=== PATIENT | female | born 1980 | race African-American/Black ===

== ENCOUNTER 2016-12-07 09:28 | Emergency (ER) | payer SELFPAY ==
[2016-12-07] MEDS ORDERED: Acetaminophen 500 MG TAB ONE (09:51)
[2016-12-07] MEDS ORDERED: Amlodipine Besylate/Benazepril 5/10 Capsule PO SCH (10:00)
[2016-12-07 10:10] LABS: #Basophils 0.1 thou/uL (0.0-0.2); #Eosinphils 0.1 thou/uL (0.0-0.7); #Monocytes 0.4 thou/uL (0.11-0.59); #Neutrophils 4.8 thou/uL (1.40-6.50); %Basophils 1.7 % (0.0-1.0); %Eosinophils 1.2 % (0.0-10.0); %Lymphocytes 16.2 % (21.0-51.0); %Monocytes 5.9 % (0.0-10.0); Hematocrit 41.9 % (36.0-47.0); Mean Platelet Volume 7.3 fL (7.4-10.4); Red Blood Cell (RBC) Count 4.79 mill/uL (4.20-5.40); White Blood Cell (WBC) Count 6.4 thou/uL (4.8-10.8)
[2016-12-07 10:32] LABS: ALT (SGPT) 16 U/L (8-55); AST (SGOT) 20 U/L (5-34); Alkaline Phosphatase 66 U/L (40-150); Anion Gap 13 mmol/L (10-20); BUN (Urea Nitrogen) 14 mg/dL (7.0-18.7); Bilirubin, Total 0.8 mg/dL (0.2-1.2); Calc. Creatinine Clearance 0 mL/min (70-130); Calcium 9.9 mg/dL (7.8-10.44); Carbon Dioxide 24 mmol/L (22-29); Chloride 101 mmol/L (98-107); Estimated GFR-MDRD Greater than 90; Globulin 3.4 g/dL (2.4-3.5); Protein, Total 7.5 g/dL (6.0-8.3)
--- NOTE | 2016-12-07 10:57 | CT ---
CT HEAD NONCONTRAST: HISTORY: Headache. COMPARISON: 06/28/13. FINDINGS: There is no evidence of acute intracranial hemorrhage or infarct. The ventricles appear normal in s ize, shape, and position. There is no mass effect or shift of midline structures. Visualized paran martin sinuses remain well aerated. IMPRESSION: No acute intracranial abnormalities are demonstrated on noncontrast CT head. POS: [facility]
[2016-12-07 11:58] LABS: Bilirubin Negative (Negative); Blood, Urine Negative (Negative); Glucose, Urine (Dipstick) Negative (Negative); Ketone, Urine Negative (Negative); Nitrite Negative (Negative); Protein, Urine (Dipstick) Negative (Neg-Trace); Urobilinogen 0.2 mg/dL (0.2-1.0)
[2016-12-07 12:00] LABS: Bacteria/HPF 1+ HPF (None Seen); Hyaline Casts/LPF 0-3 HYALINE CAST LPF (0-3 Hyaline)
== END 2016-12-07 11:20 | disposition home or self-care (01) ==
LOC: ERS 09:28
DX: I10 Essential (primary) hypertension (principal); J11.1 Influenza due to unidentified influenza virus with other respiratory manifestations; Z85.3 Personal history of malignant neoplasm of breast; Z92.21 Personal history of antineoplastic chemotherapy
CPT/HCPCS: 36415; 70450; 80053; 81003; 81015; 85025

== ENCOUNTER 2016-12-13 12:54 | Emergency (ER) | payer SELFPAY ==
[2016-12-13 14:02] LABS: #Eosinphils 0.2 thou/uL (0.0-0.7); #Lymphocytes 1.5 thou/uL (1.20-3.40); #Monocytes 0.3 thou/uL (0.11-0.59); #Neutrophils 2.4 thou/uL (1.40-6.50); %Eosinophils 3.8 % (0.0-10.0); %Lymphocytes 33.3 % (21.0-51.0); %Monocytes 6.3 % (0.0-10.0); Hematocrit 43.3 % (36.0-47.0); Mean Platelet Volume 7.7 fL (7.4-10.4); Red Blood Cell (RBC) Count 4.89 mill/uL (4.20-5.40); White Blood Cell (WBC) Count 4.4 thou/uL (4.8-10.8)
[2016-12-13 14:22] LABS: ALT (SGPT) 13 U/L (8-55); AST (SGOT) 21 U/L (5-34); Alkaline Phosphatase 69 U/L (40-150); Anion Gap 12 mmol/L (10-20); BUN (Urea Nitrogen) 13 mg/dL (7.0-18.7); Bilirubin, Total 0.6 mg/dL (0.2-1.2); Calc. Creatinine Clearance 0 mL/min (70-130); Calcium 10.2 mg/dL (7.8-10.44); Carbon Dioxide 28 mmol/L (22-29); Chloride 103 mmol/L (98-107); Estimated GFR-MDRD 87; Globulin 3.6 g/dL (2.4-3.5); Protein, Total 7.7 g/dL (6.0-8.3)
== END 2016-12-13 15:54 | disposition home or self-care (01) ==
LOC: ERS 12:54
DX: R51 Headache (principal)
CPT/HCPCS: 36415; 80053; 85025; 99284

== ENCOUNTER 2016-12-23 01:09 | Inpatient (IN) | payer OTHER, SELFPAY ==
[2016-12-23] MEDS ORDERED: diphenhydrAMINE 50 MG/ML VIAL ONE (02:05)
[2016-12-23] MEDS ORDERED: Metoclopramide HCl 10 MG/2 ML VIAL ONE (02:05)
[2016-12-23 02:19] LABS: #Basophils 0.1 thou/uL (0.0-0.2); #Eosinphils 0.1 thou/uL (0.0-0.7); #Lymphocytes 1.4 thou/uL (1.20-3.40); #Monocytes 0.4 thou/uL (0.11-0.59); #Neutrophils 1.9 thou/uL (1.40-6.50); %Basophils 2.5 % (0.0-1.0); %Eosinophils 2.5 % (0.0-10.0); %Lymphocytes 36.8 % (21.0-51.0); %Monocytes 9.2 % (0.0-10.0); Hematocrit 41.4 % (36.0-47.0); Mean Platelet Volume 8.2 fL (7.4-10.4); Red Blood Cell (RBC) Count 4.73 mill/uL (4.20-5.40); White Blood Cell (WBC) Count 3.8 thou/uL (4.8-10.8)
[2016-12-23 03:03] LABS: Anion Gap 10 mmol/L (10-20); BUN (Urea Nitrogen) 11 mg/dL (7.0-18.7); Calc. Creatinine Clearance 0 mL/min (70-130); Carbon Dioxide 29 mmol/L (22-29); Chloride 101 mmol/L (98-107); Estimated GFR-MDRD 89
[2016-12-23] MEDS ORDERED: methylPREDNISolone Sod Succ/PF 125 MG/2 ML VIAL ONE (03:59)
[2016-12-23] MEDS ORDERED: Water For Inject, Bacteriostat 30 ML ONE (03:59)
[2016-12-23] MEDS ORDERED: Ketorolac Tromethamine 30 MG/ML VIAL ONE (03:59)
[2016-12-23] MEDS ORDERED: Magnesium 2 GM/NS 0.9% 50 ML 2 GM in Premix Bag 1 BAG IVPB SCH (04:15)
[2016-12-23] MEDS ORDERED: Potassium Chloride 20 MEQ TAB ONE (04:45)
[2016-12-23] MEDS ORDERED: SODIUM CHLORIDE 0.9% IVPB SCH (05:15)
[2016-12-23] MEDS ORDERED: METHOCARBAMOL IVPB SCH (05:15)
[2016-12-23] MEDS ORDERED: Valproate Sodium 1,000 MG in Sodium Chloride 0.9% 100 ML IVPB SCH (05:30)
[2016-12-23] MEDS ORDERED: cefTRIAXone\\ROCEPHIN 2 GM VIAL ONE (06:58)
[2016-12-23] MEDS ORDERED: Sodium Chloride 0.9% 100 ML ONE (06:58)
[2016-12-23 07:11] LABS: CSF, Glucose 25 mg/dl (40-70)
--- NOTE | 2016-12-23 07:49 | CT ---
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 Pt also reports weakness as well as n/v a nd states she has not been able to keep anything down. Pt states she was recently prescribed medications for high BP and reports she has been getting headaches since starting on these. Not on b lood thinners. No recent head trauma, no falls. Denies fever, denies dental pain, denies jaw pain. P t states she has had recent CT scan of head for same headache which was negative. Pt reports h/o breast cancer and surgery for this, states she is about to start radiation. TECHNIQUE: Axial computed tomography images of the head/brain without intravenous contrast. All CT scans at [facility] facility use one or more dose reduction techniques, viz.: automated exposure control; ma/kV adjust ment per patient size (including targeted exams where dose is matched to indication; i.e. head); or iterative reconstruction technique. COMPARISON: No relevant prior studies available. FINDINGS: Brain: Normal. No hemorrhage. No significant white matter disease. No edema. Ventricles: Normal. No ventriculomegaly. Bones/joints: Normal. No acute fracture. Soft tissues: Normal. Sinuses: Unremarkable as visualized. No acute sinusitis. Mastoid air cells: Unremarkable as visualized. No mastoid effusion. IMPRESSION: No acute intracranial hemorrhage. Thank you for allowing us to participate in the care of your patient. Dictated and Authenticated by: Naga Carl MD 12/23/2016 6:48 AM Central Time ([place] \T\ [place]) FINAL REPORT HEAD CT WITHOUT CONTRAST: 12/23/2016 COMPARISON: 12/07/2016 HISTORY: Headache and weakness. FINDINGS: I agree with the preliminary [facility] report. The imaged paranasal sinuses/mastoid air cells are well-a erated. There is no displaced calvarial fracture, intracranial hemorrhage, midline shift, or mass e ffect. IMPRESSION: No intracranial hemorrhage. POS: [facility]
[2016-12-23] MEDS ORDERED: Acyclovir Sodium 700 MG, Admixture Fee 1 EACH in Sodium Chloride 0.9% 100 ML IVPB SCH (08:15)
[2016-12-23] MEDS ORDERED: ADMIXTURE FEE IVPB SCH ×7 (08:30→17:00)
[2016-12-23] MEDS ORDERED: SODIUM CHLORIDE IVPB SCH ×7 (08:30→17:00)
[2016-12-23] MEDS ORDERED: ACYCLOVIR SODIUM IVPB SCH ×7 (08:30→17:00)
[2016-12-23 08:39] LABS: Number Cells Counted-Fluids 100
[2016-12-23 08:51] LABS: Number Cells Counted-Fluids 100
[2016-12-23] MEDS ORDERED: Acetaminophen 325 MG TAB PO PRN (11:28)
[2016-12-23] MEDS ORDERED: Ondansetron HCl/PF 4 MG/2 ML Vial IVP PRN (11:28)
[2016-12-23] MEDS ORDERED: Ibuprofen 200 MG TAB PO PRN (11:28)
--- NOTE | 2016-12-23 12:41 | HP ---
REASON FOR ADMISSION: Possible viral meningitis. HISTORY OF PRESENTING ILLNESS: The patient gives history of having frontal headache for nearly 3-4 days now. This has been progressively getting worse. She in fact came to the ER 3 times. Initially, she had high blood pressure while on one visit and she was given prescriptions for metoprolol and clonidine. The headache persisted; she came for the second time and had a CT brain done which did not reveal any acute abnormalities. From last night, she has been vomiting and has done so nearly 9 times. The last few were bilious. No blood in it. The headache is behind her eyes. Has some nuchal pain, but no neck stiffness as such. She is moving all extremities. No sick contacts. Has no pets in the house. Has not been in the [place] or trekking recently. No rash anywhere on her body. PAST MEDICAL AND SURGICAL HISTORY: History of breast cancer diagnosed last year and has had lumpectomy done in 08/2016, it is on the left side. Her plastic surgeon has plans for reconstructing her left breast in the near future. No other surgeries, recent diagnosis of hypertension in the last week. CURRENT MEDICATIONS: Metoprolol 50 mg twice daily and clonidine 0.1 mg at bedtime. ALLERGIES: No known drug allergies. PERSONAL HISTORY: Does not abuse alcohol or drugs. No history of smoking. FAMILY HISTORY: Both parents are alive and as far as she knows no cancer or heart disease. Power of deputy prosecuting attorney is her aunt, Ms. Kent. Code STATUS: FULL. REVIEW OF SYSTEMS: The following complete review of systems was negative, unless otherwise mentioned in the HPI or below: Constitutional: Weight loss or gain, ability to conduct usual activities. Skin: Rash, itching. Eyes: Double vision, pain. ENT/Mouth: Nose bleeding, neck stiffness, pain, tenderness. Cardiovascular: Palpitations, dyspnea on exertion, orthopnea. Respiratory: Shortness of breath, wheezing, cough, hemoptysis, fever or night sweats. Gastrointestinal: Poor appetite, abdominal pain, heartburn, nausea, vomiting, constipation, or diarrhea. Genitourinary: Urgency, frequency, dysuria, nocturia. Musculoskeletal: Pain, swelling. Neurologic/Psychiatric: Anxiety, depression. Allergy/Immunologic: Skin rash, bleeding tendency. PHYSICAL EXAMINATION: GENERAL: The patient is a 36-year-old female who is currently not in any acute distress. VITAL SIGNS: Blood pressure on arrival was 171/136, repeat pressure was 146/84 , pulse 70 per minute, respiratory rate 18 per minute, temperature 98.1 degrees Fahrenheit, and saturating 100% on room air. NECK: Supple, no elevated JVD. EYES: Extraocular muscles intact. Pupils reacting to light. ORAL CAVITY: Mucous membranes are moist. No exudates or congestion. There are no signs of meningeal irritation, including Kernig's is negative and Brudzinski's is negative. CARDIOVASCULAR SYSTEM: S1, S2 heard. Regular rhythm. RESPIRATORY SYSTEM: Air entry 1+ bilaterally. No rales or rhonchi. ABDOMEN: Soft and bowel sounds heard. No tenderness, rigidity or guarding. EXTREMITIES: No peripheral edema or calf tenderness. VASCULAR SYSTEM: Peripheral pulses 1+ bilateral. No ischemic ulcerations or gangrene. CENTRAL NERVOUS SYSTEM: No gross focal deficits seen. Patient is alert, awake , and oriented x3. PSYCHIATRIC SYSTEM: The patient's mood is euthymic. No hallucinations or delusions. IMAGING AND LABORATORY DATA: Patient has had lumbar puncture done which shows tube 1 is colorless and clear, has WBC of 50, RBC of 1, 90% lymphocytes, 25 mg per deciliter of glucose, 49 mg per deciliter of proteins. HIV 1 and 2 is nonreactive. CSF gram stain shows no organisms. There is WBCs seen. CT brain shows no acute intracranial hemorrhage, potassium is 3.3, BUN 11, creatinine 0.8. Serum test is negative. White count of 3.8, hemoglobin and hematocrit 14 and 41, platelet count is 178. MCV is 87 with 49% lymphocytes. CLINICAL IMPRESSION AND PLAN: The patient will be admitted to medical floor for suspected viral meningitis with intractable headache, nausea, and vomiting. She was given a dose of vancomycin, ceftriaxone, and acyclovir in the ER, we will continue the same. We will obtain consultation with Dr. Conley for Infectious Disease. Her CSF is sent for West Nile HSV 1 and 2 PCRs. Currently , her headache is better. CSF fluid will be sent for cytology as well in view of her recent history of left breast cancer as well. CT brain is negative for any acute infarct or bleed. She will be on Pepcid 20 mg b.i.d. and Motrin p.r.n. for pain. We will continue to closely monitor her for any hemodynamic compromise. MTDD
[2016-12-23] MEDS: Sodium Chloride 0.9% 1,000 ML IV SCH (12:49)
[2016-12-23 14:16] VITALS: BMI 26.4
--- NOTE | 2016-12-23 15:10 | PDOC.EVN ---
Event Note - Event Note Event Note: Was told by RN taking care of patient that pts cytology from [facility] showed malignant cells, ?breast D/w Ms.Julie Cisneros, will see patient and confirm above finding with pathologist.
[2016-12-23] MEDS ORDERED: Vancomycin HCl 1 GM in Premix Bag 1 BAG IVPB SCH (16:00)
[2016-12-23] MEDS ORDERED: HYDROcodone/Acetaminophen 5/325 mg Tablet PO PRN ×2 (16:37)
[2016-12-23] MEDS: Dexamethasone 4 mg/ml Vial SLOW IVP SCH ×2 (17:09→23:05)
[2016-12-23] MEDS: Docusate 100 MG CAP PO SCH (21:01)
[2016-12-23] MEDS: Famotidine 20 MG TAB PO SCH (21:01)
--- NOTE | 2016-12-23 21:31 | CON ---
DATE OF CONSULTATION: 12/23/2016 REASON FOR CONSULTATION: Metastatic breast cancer. HISTORY OF PRESENT ILLNESS: Ms. Gagnon is a pleasant 36-year-old female who found a lump on her le ft breast in 05/2015. She had a breast biopsy done which showed moderately differentiated invasive ductal carcinoma. Hormone receptor positive, HER-2 positive cancer at that time, the breast mass me asured 4.5 cm. The patient was lost a followup until 11/2015 when she was seen by Dr. Wilkinson again with a 9 cm mass in the left breast. She had positive left axilla lymph nodes. She had lost 10 po unds of weight. Her CT scan showed no metastasis. She started chemotherapy with Adriamycin and Cyt oxan followed by Taxol. After chemotherapy, she was to have surgery; however, she wanted breast rec onstructive surgery and went to [place] for to find a surgeon secondary to her insurance. She had a left mastectomy approximately 11 weeks ago. She has a left breast tissue demurrage clerk in place. Over the last week and a half, she has been complaining of headache, dizziness with nausea and vomiting. She has been to the emergency room 3 times. She has had 2 negative brain CTs, she was diagnosed wi th hypertension and started on blood pressure medication. She had no relief in her headaches so pre sented to the emergency room yesterday for further evaluation. 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 PAST MEDICAL HISTORY: 1. Stage IIIB ER/[place], HER-2 positive breast cancer. 2. Hypertension. PAST SURGICAL HISTORY: Left mastectomy. ALLERGIES: No known drug allergies. HOME MEDICATIONS: [place] 10/325 p.r.n. pain. FAMILY HISTORY: No known history of breast cancer. SOCIAL HISTORY: Single, has 3 children, lives alone. Social drinker, occasional marijuana and no t obacco use. REVIEW OF SYSTEMS: CONSTITUTIONAL: No fever, chills, night sweats. EYES: No blurred or double vision. ENT: No pain, hoarseness, sore throat, or dysphagia. CARDIOVASCULAR: No chest pain, palpitations or syncope. RESPIRATORY: No shortness breath, dyspnea on exertion or orthopnea. GASTROINTESTINAL: Positive for nausea and vomiting. No abdominal pain. GENITOURINARY: No dysuria or hematuria. MUSCULOSKELETAL: Positive for low back pain. SKIN: No rash or pruritus. HEMATOLOGIC: Denies bleeding, bruising or clotting. NEUROLOGIC: Positive for weakness, headache, dizziness, no seizure activity. PSYCHIATRIC: No anxiety or depression. PHYSICAL EXAMINATION: VITAL SIGNS: Temperature is 98.5, pulse is 72, respiratory rate 14, BP is 130/75. She is 100% on r oom air. GENERAL: Well-developed and well-nourished female in no acute distress. HEENT: Normocephalic and atraumatic. Pupils are equal and reactive to light. NECK: Supple without JVD. CARDIOVASCULAR: Regular rate and rhythm. LUNGS: Clear. ABDOMEN: Soft, nontender, bowel sounds are positive. EXTREMITIES: No clubbing, cyanosis or edema. SKIN: No rash. She has a left breast tissue demurrage clerk in place. NEUROLOGICAL: Nonfocal. PSYCHIATRIC: The patient is alert and oriented and appropriate. PERTINENT LABORATORY AND X-RAYS: Current WBCs are 3.8, hemoglobin 14.1, hematocrit 41.4, platelet c ount 178,000, 49% neutrophils, 37% lymphocytes. Sodium 137, potassium 3.3, chloride 101, CO2 is 29, BUN is 11, creatinine 0.88, calcium is 10. test is negative. CSF showed a protein of 49 , glucose of 25. HIV is negative. IMPRESSION: 1. History of ER/[place], HER-2 positive breast cancer, status post chemotherapy and left mastectomy. 2. New onset headaches. 3. 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 DISCUSSION: The case was discussed with Dr. Perez and Dr. Shields. We will perform an MRI of her brain and spine. Consult Neurosurgery for Ommaya reservoir placement and spoke with Mr. Rollins with Dr. Thurston's office. The patient will need methotrexate once the Ommaya is placed. This was discus sed with the patient and she wishes to proceed. Thank you for the consult.
--- NOTE | 2016-12-23 21:34 | CON ---
DATE OF CONSULTATION: 12/23/2016 REASON FOR CONSULTATION: Abnormal CSF, headaches. HISTORY OF PRESENT ILLNESS: This is a 36-year-old, who has a history of lumpectomy and chemotherapy for management of breast cancer, left-sided. The pathology revealed intraductal cancer with equivocal findings, the estrogen receptor was positive, progesterone receptor positive, the Ki index was high, but the receptor was equivocal even by FISH. The patient had chest, abdomen, and pelvis CT in October, which showed a left breast mass and mildly prominent left axillary lymph nodes concerning for involvement. The patient was in her usual state until 2 weeks before she developed dizziness and then now this persistent headache, and headache got better after admission. Spinal fluid was abnormal with mild neutrophilic pleocytosis, but quite severe hypoglycorrhachia. The patient currently has no headaches, no vomiting, no chest pain, no dyspnea, no abdominal pain, no joint symptoms. PAST MEDICAL HISTORY: As above, includes breast cancer with treatments. ALLERGIES: None. MEDICATIONS: Metoprolol, clonidine. SOCIAL HISTORY: Never a smoker. FAMILY HISTORY: Noncontributory. PHYSICAL EXAMINATION: VITAL SIGNS: Normal. HEENT: Ocular movements are conjugate. Fundi with sharp disks. No abnormalities in retinal nathan. NECK: Supple, no jugular venous distention. LUNGS: Clear. ABDOMEN: Soft. HEART: Normal. EXTREMITIES: Joint examination normal. NEUROLOGIC: She is awake, alert, oriented. LABORATORY DATA: WBC count 3.8, platelet count 178,000, normal differential, and potassium 3.3. test negative. Now we have the results of the pathology, and the CSF fluid was positive for malignant cells consistent with metastatic carcinoma. ASSESSMENT: 1. Breast cancer with lumpectomy and chemo. 2. Headaches with carcinomatous meningitis. Hypoglycorrhachia is very typical of carcinomatous meningitis and now there is a positive cytology and the patient will need intrathecal chemotherapy, may need radiation therapy as well. MTDD
[2016-12-24] MEDS: Dexamethasone 4 mg/ml Vial SLOW IVP SCH ×3 (05:29→16:13)
[2016-12-24] MEDS: Sodium Chloride 0.9% 1,000 ML IV SCH (05:29)
[2016-12-24] MEDS ORDERED: cefTRIAXone\\ROCEPHIN 2 GM, Admixture Fee 1 EACH in Sodium Chloride 0.9% 100 ML IVPB SCH (06:00)
[2016-12-24 06:47] LABS: #Lymphocytes 1.1 thou/uL (1.20-3.40); #Monocytes 0.2 thou/uL (0.11-0.59); #Neutrophils 5.5 thou/uL (1.40-6.50); %Basophils 0.1 % (0.0-1.0); %Eosinophils 0.1 % (0.0-10.0); Hematocrit 36.2 % (36.0-47.0); Mean Platelet Volume 9.2 fL (7.4-10.4); Red Blood Cell (RBC) Count 4.05 mill/uL (4.20-5.40); White Blood Cell (WBC) Count 6.8 thou/uL (4.8-10.8)
[2016-12-24 06:55] LABS: Anion Gap 11 mmol/L (10-20); BUN (Urea Nitrogen) 10 mg/dL (7.0-18.7); Calc. Creatinine Clearance 120 mL/min (70-130); Calcium 8.9 mg/dL (7.8-10.44); Carbon Dioxide 21 mmol/L (22-29); Chloride 109 mmol/L (98-107); Estimated GFR-MDRD Greater than 90
[2016-12-24] MEDS: Famotidine 20 MG TAB PO SCH (10:14)
[2016-12-24] MEDS: Docusate 100 MG CAP PO SCH (10:14)
--- NOTE | 2016-12-24 10:25 | PDOC.PN ---
- Subjective Encounter Start Date: 12/24/16 Encounter Start Time: 09:30 - Objective Resuscitation Status: Resuscitation Status FULL:Full Resuscitation MAR Reviewed: Yes Vital Signs & Weight: Vital Signs (12 hours) Temp Pulse Resp BP Pulse Ox 12/24/16 08:14 98.5 F 65 18 162/96 H 97 12/24/16 04:29 97.7 F 58 L 16 132/70 99 12/23/16 23:30 97.8 F 50 L 16 146/71 H 98 Weight Weight 154 lb I&O: 12/23/16 12/24/16 12/25/16 06:59 06:59 06:59 Intake Total 1320 Balance 1320 Result Diagrams: 12/24/16 05:37 12/24/16 05:37 Phys Exam - Physical Examination HEENT: PERRLA, moist MMs Neck: no JVD, supple Respiratory: no wheezing, no rales Cardiovascular: RRR, no significant murmur Gastrointestinal: soft, non-tender, positive bowel sounds Musculoskeletal: no edema, pulses present Neurological: non-focal, moves all 4 limbs Psychiatric: A&O x 3 Dx/Plan (1) Meningeal carcinomatosis Code(s): 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 Review of Systems - Medications/Allergies Allergies/Adverse Reactions: Allergies Allergy/AdvReac Type Severity Reaction Status Date / Time No Known Allergies Allergy Verified 12/23/16 14:30 Medications: Current Medications Acetaminophen (Tylenol) 650 mg PO Q4H PRN PRN Reason: Headache/Fever or Pain Hydrocodone Bitart/Acetaminophen ([place] 5/325) 1 tab PO Q4H PRN PRN Reason: Mild-Moderate Pain (1-5) Hydrocodone Bitart/Acetaminophen ([place] 5/325) 2 tab PO Q4H PRN PRN Reason: Moderate Pain (4-6) Dexamethasone (Decadron) 4 mg SLOW IVP Q6H [facility] Last Admin: 12/24/16 10:16 Dose: 4 mg Docusate Sodium (Colace) 100 mg PO BID [facility] Last Admin: 12/24/16 10:14 Dose: 100 mg Famotidine (Pepcid) 20 mg PO BID [facility] Last Admin: 12/24/16 10:14 Dose: 20 mg Sodium Chloride (Normal Saline 0.9%) 1,000 mls @ 60 mls/hr IV .[id number] [facility] Last Admin: 12/24/16 05:29 Dose: 1,000 mls Ibuprofen (Motrin) 400 mg PO Q6H PRN PRN Reason: Pain Ondansetron HCl (Zofran) 4 mg IVP Q6H PRN PRN Reason: Nausea/Vomiting
--- NOTE | 2016-12-24 11:57 | MRI ---
MRI LUMBAR SPINE WITH AND WITHOUT CONTRAST: Technique: MRI of the lumbar spine obtained. Post contrast images obtained after administering 5 cc of MultiHance IV. History: Weakness. History of breast cancer. FINDINGS: Lumbar vertebrae maintain normal height and alignment. Disc spaces are maintained. Vertebral body si gnal is normal. There is no evidence of infiltrative process or metastases. No abnormal enhancement. No evidence of disc bulge or disc protrusion. There is no central canal or foraminal stenosis. Conu s terminates at L1. IMPRESSION: Unremarkable MRI of the lumbar spine. POS: OFF
--- NOTE | 2016-12-24 12:01 | MRI ---
MRI BRAIN WITH AND WITHOUT CONTRAST: Technique: Multiplanar, multisequential imaging of the brain obtained pre and post contrast. Post co ntrast images obtained after administration of 14 cc MultiHance IV. History: Carcinoma. History of breast cancer. Weakness. FINDINGS: The ventricles have normal size and position. No evidence for restricted effusion. No mass, edema, o r white matter abnormality. No abnormal enhancement. IMPRESSION: Unremarkable MRI of brain. POS: OFF
--- NOTE | 2016-12-24 12:03 | MRI ---
MRI THORACIC SPINE WITH AND WITHOUT CONTRAST: Technique: Multiplanar, multisequence MRI images of the thoracic spine obtained. Post contrast image s were obtained after administration of 14 cc of MultiHance IV. History: Carcinoma, history of breast cancer, weakness. FINDINGS: Thoracic vertebrae maintain normal height and alignment. Thoracic vertebra signal is normal. No evid ence of metastatic disease identified. No disc bulge or protrusion. No central canal stenosis. Thora cic cord signal is normal. IMPRESSION: Unremarkable MRI thoracic spine. POS: OFF
--- NOTE | 2016-12-24 12:58 | MRI ---
MRI CERVICAL SPINE WITH AND WITHOUT CONTRAST: HISTORY: Weakness. History of breast cancer. Positive CSF carcinoma. TECHNIQUE: Multiplanar, multisequential imaging of the cervical spine is obtained. Post contrast images are ob tained after administering 14 mL of MultiHance. FINDINGS: The cervical vertebrae maintain height and alignment. Degenerative changes are noted at C4-C5 and C 5-C6. Anterior osteophytes are present at these levels. Loss of disk space at C5-C6. There is a p osterior disk protrusion centrally at C5-C6, impinging on and mildly flattening the cord. There is disk bulge and spondylosis at C6-C7, slightly more prominent paracentrally and to the left, flatteni ng the anterior thecal sac and abutting the cord. This may impinge on and displace the traversing l eft C7 nerve root. Cord signal is minimal. No abnormal enhancement. No evidence of a metastatic lesion. IMPRESSION: 1. Disk protrusion at C5-C6 , impinging on the cord. 2. Disk bulge and spondylosis at C6-C7, more prominent to the left, as described above. 3. No evidence of a metastatic lesion. POS: OFF
[2016-12-24 13:24] VITALS: TEMP 97
[2016-12-24 16:17] VITALS: BP 143/80
[2016-12-24] MEDS ORDERED: Metoprolol Tartrate 50 MG TAB PO SCH (21:00)
--- NOTE | 2016-12-25 02:29 | DIS ---
DATE OF ADMISSION: 12/23/2016 DATE OF DISCHARGE: 12/24/2016 DISCHARGE DISPOSITION: To home. 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 PROCEDURES DONE DURING HOSPITALIZATION: Thoracic spine MRI done was unremarkable. Lumbar spine MRI was unremarkable. Cervical spine MRI showed disk protrusion at C5-C6, impinging on the cord, there is also disk bulge and spondylosis at C6-C7, no evidence of metastatic lesion. MRI brain was unremarkable. There was no abnormal enhancement seen. CSF fluid cytology showed malignant cells consistent with metastatic carcinoma. The cells seen on the cytology were compatible with metastatic breast cancer. CT brain done on the day of admission showed no acute intracranial hemorrhage. HIV 1 and 2 nonreactive. CSF tube #3 was colorless. CSF glucose was 25. CSF total protein was 49. On tube #4, WBC was 88 and CSF RBC 5 with 88% lymphocytes. Serum test was negative. White count 6.8, H\T\H were 12 and 36, platelet count 166 with 80% neutrophils. DISCHARGE MEDICATIONS: Motrin p.r.n. for pain, Lopressor 50 mg twice daily. ALLERGIES: No known drug allergies. INPATIENT CONSULTS: Dr. Perez/Jacqueline Cisneros APRN for Oncology. Dr. Conley for Infectious Disease. BRIEF COURSE DURING HOSPITALIZATION: The patient initially came to ER with complaints of severe headache, mainly frontal headache. This has been ongoing for the last week or so. She had come to the emergency room nearly 3 times and has had CAT scan for the brain done twice. She also had intractable vomiting in the last 24 hours prior to arrival here. The patient has had lumbar puncture done and her cell cytology from the CSF shows malignant cells compatible with breast cancer metastasis. She has had history of left breast cancer with surgery done this August. She was diagnosed of cancer sometime in the early part of last year. She has had consultations with Dr. Perez for Oncology and Dr. Conley for Infectious Disease. She was initially thought to have had viral meningitis, but her cytology came back positive for malignancy. She was placed on Decadron. She has had complete relief with her nausea, vomiting, and headache. She is wanting to go home today and follow up with [facility]. All her family is in [place] and she would like to go from here and she would not want to continue further procedures including placement of Ommaya reservoir for intrathecal methotrexate. In view of this, she is being discharged home. The patient has been strongly counseled with regards to either following up with Dr. Perez or at [facility]. She is ambulating and eating well prior to discharge. Please see a [id number] documentation for the day of discharge on [facility]. [facility]
[2016-12-26 13:15] LABS: West Nile Virus IgG Ab - CSF Negative (Negative); West Nile Virus IgM Ab - CSF Negative (Negative)
[2016-12-26 22:09] LABS: HSV 1 - DNA Negative (Negative)
== END 2016-12-24 19:08 | disposition home or self-care (01) | DRG 55 ==
LOC: ERS 01:09 → SURG B 07:52 → ONC 12-24 12:39
PROVIDERS: ADMIT Internal Medicine; ATTEND Internal Medicine
PROC: 009U3ZX Drainage of Spinal Canal, Percutaneous Approach, Diagnostic (ICD-10-PCS; principal; 2016-12-23)
DX: C79.49 Secondary malignant neoplasm of other parts of nervous system (principal); C50.912 Malignant neoplasm of unspecified site of left female breast; I10 Essential (primary) hypertension; Z17.0 Estrogen receptor positive status [ER+]; Z90.12 Acquired absence of left breast and nipple
CPT/HCPCS: 36415; 70450; 70553; 72156; 72157; 72158; 80048; 82945; 84157; 84703; 85025; 85060; 86788; 86789; 87070; 87205; 87389; 87529; 88104; 89051; J0133; J0696; J1100; J1200; J1885; J2405; J2765; J2800; J2930; J3475; J7050

== ENCOUNTER 2017-01-01 10:32 | Inpatient (IN) | payer OTHER ==
[2017-01-01] MEDS ORDERED: Artificial Tears 18 DROP/0.9 ML EA EYE PRN (11:11)
[2017-01-01] MEDS ORDERED: Milk Of Magnesia 30 ML UDCUP PO PRN (11:11)
[2017-01-01] MEDS ORDERED: Zolpidem Tartrate 5 MG TAB PO PRN (11:11)
[2017-01-01] MEDS ORDERED: HYDROcodone/Acetaminophen 10/325 mg Tablet PO PRN (11:11)
[2017-01-01] MEDS ORDERED: Mag-Al 1200 mg/1200 mg/30 ML UDCUP PO PRN (11:11)
[2017-01-01] MEDS ORDERED: hydrALAZINE 20 MG/ML VIAL SLOW IVP PRN (11:11)
[2017-01-01] MEDS ORDERED: Ondansetron ODT 4 MG TAB PO PRN (11:11)
[2017-01-01] MEDS ORDERED: Sodium Chloride 0.65% Nasal 44 ML BOT EA NARE PRN (11:11)
[2017-01-01] MEDS ORDERED: Acetaminophen 325 MG TAB PO PRN (11:11)
[2017-01-01] MEDS ORDERED: Loratadine 10 MG TAB PO PRN (11:11)
[2017-01-01] MEDS ORDERED: Loperamide HCl 2 MG CAP PO PRN (11:11)
[2017-01-01] MEDS ORDERED: Diabetic Tussin 200 MG/10 ML UDCUP PO PRN (11:11)
[2017-01-01] MEDS ORDERED: Eucerin (Mineral Oil/Petrolatum,White) 30 gm Jar TOP PRN (11:11)
[2017-01-01] MEDS ORDERED: Senokot 8.6 MG TAB PO PRN (11:11)
[2017-01-01] MEDS ORDERED: Ondansetron HCl/PF 4 MG/2 ML Vial IVP PRN (11:11)
[2017-01-01] MEDS: Sodium Chloride 0.9% 1,000 ML IV SCH (12:20)
[2017-01-01] MEDS: Dexamethasone 4 mg/ml Vial SLOW IVP SCH ×3 (12:20→20:51)
[2017-01-01] MEDS ORDERED: Dexamethasone 4 MG, Admixture Fee 1 EACH in Sodium Chloride 0.9% 50 ML IVPB SCH (13:00)
[2017-01-01 14:16] LABS: PTT 30.7 SEC (22.9-36.1); Prothrombin Time 12.8 SEC (12.0-14.7)
[2017-01-01 14:18] LABS: #Eosinphils 0.1 thou/uL (0.0-0.7); #Lymphocytes 1.3 thou/uL (1.20-3.40); #Monocytes 0.7 thou/uL (0.11-0.59); #Neutrophils 3.4 thou/uL (1.40-6.50); %Basophils 0.4 % (0.0-1.0); %Eosinophils 1.7 % (0.0-10.0); %Lymphocytes 24.2 % (21.0-51.0); %Monocytes 13.1 % (0.0-10.0); Hematocrit 46.4 % (36.0-47.0); Mean Platelet Volume 7.7 fL (7.4-10.4); Red Blood Cell (RBC) Count 5.22 mill/uL (4.20-5.40); White Blood Cell (WBC) Count 5.6 thou/uL (4.8-10.8)
--- NOTE | 2017-01-01 14:22 | HP ---
PRIMARY CARE PHYSICIAN: [facility] call admission. Patient is following [facility]. REASON FOR ADMISSION: Intractable headache. HISTORY OF PRESENT ILLNESS: A 36-year-old -F[place] female who had lump in her left breast w edelh was diagnosed in 05/2015. Subsequently, patient had breast biopsy, which turned out to be mode rately differentiated invasive ductal carcinoma. It was hormone receptor positive and HER-2 positiv e. On diagnosis, breast mass was measured about 4.5 cm. Subsequently, she lost her followup and wh en she saw doctor at that time mass has increased in size to 9 cm with positive left axillary lymph node and she also had weight loss. At that time, patient did not have any metastasis. Patient was started on chemotherapy with Adriamycin and Cytoxan followed by Taxol. After chemotherapy, patient wanted to have breast reconstructive surgery and that is why she went to [place] to find surgeon. 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 She was most recently admitted in our hospital on 12/23/2016. At that time, the patient was having headache. 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 At that time, patient had womack MRI including thoracic, lumbar and cervical spine MRI which were normal and MRI brain was also unremarkable. Patient was discharge d home on oral steroid. The patient was taking Decadron 4 mg p.o. q.8 hourly which was not taking c are of her headache and that is why today patient went to see Oncology and Oncology decided to keep her in hospital for her headache control and eventual plan for intrathecal chemotherapy. The patien t is feeling a little bit unsteady on and off basis. She denies any focal motor or sensory symptoms . She denies any seizures. She denies any fever or chills. She denies any abdominal pain, constip ation, or diarrhea. She denies any chest pain, palpitation or shortness of breath. She denies any urinary tract infection symptoms. PAST MEDICAL HISTORY: Hypertension, diagnosis of left breast cancer stage 3B, ER/NM positive, HER-2 positive, hypertension. PAST SURGICAL HISTORY: Left mastectomy. PAST PSYCHIATRIC HISTORY: Reviewed and negative. ALLERGIES: No known drug allergies. FAMILY HISTORY: No strong family history of breast cancer, coronary artery disease, stroke or cance r. SOCIAL HISTORY: Patient is single. She has 3 children and lives alone. She drinks alcohol sociall y. She smokes more marijuana occasionally. She denies any smoking. REVIEW OF SYSTEMS: The following complete review of systems was negative, unless otherwise mentione d in the HPI or below: Constitutional: Weight loss or gain, ability to conduct usual activities. Skin: Rash, itching. Eyes: Double vision, pain. ENT/Mouth: Nose bleeding, neck stiffness, pain, tenderness. Cardiovascular: Palpitations, dyspnea on exertion, orthopnea. Respiratory: Shortness of breath, wheezing, cough, hemoptysis, fever or night sweats. Gastrointestinal: Poor appetite, abdominal pain, heartburn, nausea, vomiting, constipation, or diar hudson. Genitourinary: Urgency, frequency, dysuria, nocturia. Musculoskeletal: Pain, swelling. Neurologic/Psychiatric: Anxiety, depression. Allergy/Immunologic: Skin rash, bleeding tendency. Please see my HPI for pertinent positive and negative. All other review of systems reviewed and neg ative except as mentioned in the HPI. CURRENT HOME MEDICATIONS: Decadron 4 mg p.o. q.8 hourly, Zofran 8 mg q.8 hourly p.r.n., Protonix 40 mg p.o. daily, prochlorperazine 10 mg p.o. q.6 hourly p.r.n., acetazolamide 250 mg p.o. b.i.d., oxy codone 5 mg p.o. q.6 hourly p.r.n. ALLERGIES: No known drug allergies. PHYSICAL EXAMINATION: VITAL SIGNS: Currently, temperature 98.0, pulse 56, respiratory rate 16, saturation 100%, and blood pressure 111/69. GENERAL: Patient is currently alert, awake, no obvious acute distress. HEAD: Normocephalic, atraumatic. EYES: Pupils round, reactive to light. Extraocular muscles intact. ENT: Oropharynx within normal limits. Moist mucous membranes. No oral lesions. No pharyngeal kassandra thema, no exudate. NECK: Supple. Range of motion is normal. No meningeal signs of irritation. LUNGS: Clear to auscultation without any rhonchi or rales. CARDIAC: S1, S2 regular without any murmur. ABDOMEN: Soft, bowel sounds present, nontender, nondistended. No organomegaly, no mass, no suprapu bic tenderness. BACK: Examination unremarkable, no CVA tenderness. EXTREMITIES: Upper extremity passive movements of all joints are normal. Lower extremities, no nickolas ma. Good peripheral pulsation. SKIN: No skin rash. HEMATOLOGICAL SYSTEM: No lymphadenopathy. PSYCHIATRIC: Normal affect. IMAGING AND SIGNIFICANT LABORATORY DATA: I have ordered CBC, CMP, PT/INR, and urinalysis. Report i s not back yet. We will review later. ASSESSMENT AND PLAN/IMPRESSION: 1. Intractable headache, likely due to meningeal carcinomatosis. 2. 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 3. Moderately differentiated invasive ductal carcinoma with ER/NM positive and HER-2 positive, stat us post mastectomy and chemotherapy. PLAN: 1. Full admission to Oncology floor. We will start Decadron 4 mg IV q.4 hourly. We will consult O ncology while in hospital. We will consult Dr. Larios for placing access for intrathecal chemothera py. Intrathecal chemotherapy will defer to Oncology. Will continue with Pepcid 20 mg IV b.i.d. Sy mptomatic treatment for nausea and vomiting. We will also continue IV fluid at NS 70 mL per hour. We will hold on Lovenox therapy because patient is planned for surgery tomorrow. 2. Code status: The patient is FULL CODE. Patient is able to make her own decisions. Disposition plan based on clinical course. Plan of care discussed with the patient in detail.
[2017-01-01 14:32] LABS: ALT (SGPT) 20 U/L (8-55); AST (SGOT) 13 U/L (5-34); Alkaline Phosphatase 74 U/L (40-150); Anion Gap 9 mmol/L (10-20); BUN (Urea Nitrogen) 14 mg/dL (7.0-18.7); Bilirubin, Total 0.6 mg/dL (0.2-1.2); Calc. Creatinine Clearance 0 mL/min (70-130); Calcium 9.6 mg/dL (7.8-10.44); Carbon Dioxide 22 mmol/L (22-29); Chloride 105 mmol/L (98-107); Estimated GFR-MDRD 85; Globulin 3.3 g/dL (2.4-3.5); Protein, Total 7.4 g/dL (6.0-8.3)
--- NOTE | 2017-01-01 15:01 | CON ---
DATE OF CONSULTATION: 01/01/2017 This is a 52 initial patient consult in which greater than 50% of the exam was spent in counseling a nd coordinating patient's care. Remainder of the exam was spent in review of patient's medical [address] and appropriate imaging studies. CHIEF COMPLAINT: Headache with positive CSF findings consistent with bleeding, malignant cells of m etastatic carcinoma presumed breast cancer. HISTORY OF PRESENT ILLNESS: Ms. Gagnon is a pleasant 36-year-old female who was diagnosed roughly a year ago with of breast cancer. She began to develop headaches over the past few weeks and to do further medical workup CSF fluid was analyzed and found to be positive for malignant carcinoma cells . The patient has been undergoing treatment with Oncology in order to treat the cancer itself. Dirk rosurgery was asked to consult regarding placement of an Ommaya reservoir. The patient currently st ates she has headache behind the bilateral eyes. She is light sensitive, but noise has not seem to increase her headache. She has also complained of some fatigue, but otherwise has no complaints. S he denies falls, weakness in any of the extremities. She has had some nausea and vomiting over the past several weeks to months. She denies dizziness and blurred vision. PHYSICAL EXAMINATION: The patient is awake, alert, and appropriate. She has full strength in the b ilateral upper and bilateral lower extremities. She has no pronator drift. Pupils are equal, round , and reactive bilaterally. Her GCS currently is 15. Gait was not tested. IMPRESSION/DIAGNOSES: 1. History of breast carcinoma with metastatic malignant carcinoma cells found in CSF. 2. Headache. PLAN: I discussed the patient's case with Dr. Larios. He has also discussed the patient with Dr. Gary mccoy. We have decided to proceed with placement of an Ommaya reservoir for treatment of the shazia ent's CSF. I have discussed the risks and benefits and procedure regarding placement of right front al Ommaya reservoir. Patient understands reason for this placement and wishes to proceed. We have scheduled to take her today or tomorrow to place this reservoir. Would like her to be n.p.o. at mid night and we will obtain consent tomorrow. At the time of examination, the patient's questions were answered to her satisfaction. Please comment any changes in the patient's neurologic status. Othe rwise, we will plan for Ommaya reservoir placement tomorrow with Dr. Larios.
[2017-01-01 15:37] VITALS: BMI 25.4
[2017-01-01] MEDS: HYDROcodone/Acetaminophen 5/325 mg Tablet PO PRN ×2 (18:23→20:50)
[2017-01-01] MEDS: Famotidine/PF 20 mg/2ml Vial SLOW IVP SCH (20:52)
[2017-01-01 23:29] LABS: Bilirubin Negative (Negative); Blood, Urine Negative (Negative); Glucose, Urine (Dipstick) Negative (Negative); Ketone, Urine Negative (Negative); Nitrite Negative (Negative); Protein, Urine (Dipstick) Negative (Neg-Trace)
[2017-01-01 23:31] LABS: Bacteria/HPF 1+ HPF (None Seen); Hyaline Casts/LPF 0-3 HYALINE CAST LPF (0-3 Hyaline); RBC/HPF 0-3 HPF (0-3)
[2017-01-02] MEDS: Morphine 10 MG/ML VIAL SLOW IVP PRN ×2 (02:00→05:14)
[2017-01-02] MEDS: Dexamethasone 4 mg/ml Vial SLOW IVP SCH ×6 (02:00→21:04)
[2017-01-02] MEDS: Sodium Chloride 0.9% 1,000 ML IV SCH ×2 (02:04→18:04)
[2017-01-02 04:23] LABS: #Basophils 0.1 thou/uL (0.0-0.2); #Lymphocytes 1.1 thou/uL (1.20-3.40); #Monocytes 0.3 thou/uL (0.11-0.59); #Neutrophils 5.8 thou/uL (1.40-6.50); %Basophils 1.6 % (0.0-1.0); %Eosinophils 0.1 % (0.0-10.0); %Lymphocytes 15.2 % (21.0-51.0); Hematocrit 46.3 % (36.0-47.0); Mean Platelet Volume 7.4 fL (7.4-10.4); Red Blood Cell (RBC) Count 5.24 mill/uL (4.20-5.40); White Blood Cell (WBC) Count 7.3 thou/uL (4.8-10.8)
[2017-01-02 04:51] LABS: ALT (SGPT) 19 U/L (8-55); AST (SGOT) 14 U/L (5-34); Alkaline Phosphatase 69 U/L (40-150); Anion Gap 11 mmol/L (10-20); BUN (Urea Nitrogen) 13 mg/dL (7.0-18.7); Bilirubin, Total 0.5 mg/dL (0.2-1.2); Calc. Creatinine Clearance 111 mL/min (70-130); Calcium 9.6 mg/dL (7.8-10.44); Carbon Dioxide 17 mmol/L (22-29); Chloride 107 mmol/L (98-107); Estimated GFR-MDRD Greater than 90; Globulin 3.4 g/dL (2.4-3.5); Protein, Total 7.3 g/dL (6.0-8.3)
[2017-01-02] MEDS ORDERED: Thrombin 5000 UNITS/5 ML VIAL ONE (06:17)
[2017-01-02] MEDS ORDERED: Sodium Chloride 0.9% 10 ML ONE (06:17)
[2017-01-02] MEDS ORDERED: Bacitracin Zinc Ointment 30 gm TUBE ONE (06:18)
[2017-01-02] MEDS ORDERED: Fentanyl 250 MCG/5 ML VIAL ONE (06:25)
[2017-01-02] MEDS ORDERED: Midazolam HCl 2 mg/2 ml Vial ONE (06:25)
[2017-01-02] MEDS ORDERED: Lidocaine 1% w/Epinephrine 1:200K 30 ML VIAL ONE (06:27)
[2017-01-02] MEDS ORDERED: CEFAZOLIN/Water 2 GM/20 ML SYRINGE ONE (06:47)
[2017-01-02] MEDS ORDERED: Ondansetron HCl/PF 4 MG/2 ML Vial ONE ×2 (06:47→07:10)
[2017-01-02] MEDS ORDERED: Succinylcholine Chloride 20 MG/ML 10 ml SYRINGE FS ONE (07:10)
[2017-01-02] MEDS ORDERED: Propofol 200 MG/20 ML VIAL ONE (07:10)
[2017-01-02] MEDS ORDERED: Lidocaine 1% PF 5 ML VIAL ONE (07:10)
[2017-01-02] MEDS ORDERED: Dexamethasone 20 MG/5 ML VIAL ONE (07:10)
[2017-01-02] MEDS ORDERED: ePHEDrine/0.9% NaCl/PF SYRINGE 50 mg/10 ml ONE (07:10)
[2017-01-02] MEDS ORDERED: PHENYLEPHRINE-NS 100 MCG/ML 10 ML SYRINGE ONE (07:10)
[2017-01-02 07:25] LABS: Phosphorus 3.4 mg/dL (2.3-4.7)
[2017-01-02] MEDS ORDERED: Ondansetron HCl/PF 4 MG/2 ML Vial IVP PRN (07:56)
[2017-01-02] MEDS ORDERED: Promethazine HCl 25 MG/ML VIAL IM PRN (07:56)
[2017-01-02] MEDS ORDERED: Promethazine HCl 25 MG/ML VIAL SLOW IVP PRN (07:56)
[2017-01-02] MEDS ORDERED: Fentanyl 100 MCG/2 ML VIAL ONE ×2 (08:51→09:18)
--- NOTE | 2017-01-02 10:25 | PRG ---
DATE OF SERVICE: 01/02/2017 This is an initial hospital visit note. CHIEF COMPLAINT: Leptomeningeal carcinomatosis with breast primary. HISTORY OF PRESENT ILLNESS: I reviewed the notes of my colleague, Arnoldo Ferrer PA-C, and agree w ith its content. Ms. Gagnon is a 36-year-old woman who was evaluated last week and found to have p ositive cytology in her CSF for malignant breast adenocarcinoma. She has had headache, nausea, and vomiting. She was also seen at [facility] and was discharged and she sought further evaluation her e. She is admitted for the aforementioned symptoms. It was requested that we place Ommaya reservoi r for chemotherapy, intrathecal chemotherapy administration. This morning she complains of headache , nausea, and vomiting. Our team has had seen Mr. Gagnon. I have discussed with Ms. Gagnon the request by oncologist for placement of an Ommaya reservoir. She requests that we pursue this. I have also discussed the risk s, benefits, alternatives, complications of placement of a reservoir and she would like to proceed. Following the placement I would be fine with access of the reservoir given the acuity of the patien t's condition starting tomorrow. DIAGNOSIS: Leptomeningeal carcinomatosis.
--- NOTE | 2017-01-02 10:50 | OP ---
OR: 12 WOUND TYPE: Type 1 wound. SURGEON: Justice Larios M.D. SWEAT BAND SEPARATOR: Arnoldo Ferrer PA-C PREPROCEDURE DIAGNOSIS: Leptomeningeal carcinomatosis (breast primary). POSTPROCEDURE DIAGNOSIS: Leptomeningeal carcinomatosis (breast primary). PROCEDURE: Placement of right-sided Ommaya reservoir for intrathecal chemotherapy administration. A modified 57 should be added to the surgery as my decision to operate on the patient on the initial day that I saw the patient. PROCEDURE: After informed consent was obtained from the patient, the patient was brought to OR 12. Proper patient pause and identification was carried out. She was placed under excellent general en dotracheal anesthesia and right frontal region was identified in the area of Breanna's point and a sm all semilunar incision was drawn out after hair was clipped. This area was sterilely cleansed, prep ared, and draped. Proper patient pause and identification was carried out. The wound was then open ed with a combination of sharp, monopolar and blunt dissection in a uriel-hole fashion and the dura o pened and the ventricular catheter passed with return of clear CSF. The Ommaya reservoir was connec zander and sutured to the catheter and we were able using a syringe to draw and flush from the Ommaya r eservoir easily. The wound was copiously irrigated and closed in anatomic layers. The patient then emerged from anesthesia.
[2017-01-02] MEDS: Famotidine/PF 20 mg/2ml Vial SLOW IVP SCH ×2 (11:05→21:04)
--- NOTE | 2017-01-02 12:18 | PDOC.PN ---
- Subjective Encounter Start Date: 01/02/17 Encounter Start Time: 12:16 -: old records requested/rev Patient seen and examined. No new complaints. No overnight events, s/p surgery today - Objective Resuscitation Status: Resuscitation Status FULL:Full Resuscitation MAR Reviewed: Yes Vital Signs & Weight: Vital Signs (12 hours) Temp Pulse Resp BP Pulse Ox 01/02/17 12:00 98.1 F 01/02/17 09:50 97.2 F L 01/02/17 04:30 97.7 F 51 L 16 151/79 H 99 01/02/17 04:00 98.1 F 62 18 118/80 100 Weight Admit Weight 147 lb 11.355 oz Weight 148 lb 9.6 oz Most Recent Monitor Data Heart Rate from ECG 66 NIBP 137/83 NIBP BP-Mean 117 Respiration from ECG 15 SpO2 100 I&O: 01/01/17 01/02/17 01/03/17 06:59 06:59 06:59 Intake Total 960 360 Output Total 800 Balance 960 -440 Result Diagrams: 01/02/17 04:11 01/02/17 04:11 Radiology Reviewed by me: Yes (CT brain) EKG Reviewed by me: Yes (nsr) Phys Exam - Physical Examination Constitutional: NAD HEENT: PERRLA, moist MMs, sclera anicteric Neck: no JVD, supple Respiratory: no wheezing, no rales, no rhonchi Cardiovascular: RRR, no significant murmur, no rub Gastrointestinal: soft, non-tender, no distention, positive bowel sounds Musculoskeletal: no edema, pulses present Neurological: non-focal, normal sensation, moves all 4 limbs Psychiatric: normal affect, A&O x 3 Skin: no rash, normal turgor Dx/Plan (1) Headache Code(s): R51 - HEADACHE Status: Acute (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 - SECONDARY MALIGNANT NEOPLASM OF OTH PARTS OF NERVOUS SYSTEM; C80.1 - MALIGNANT (PRIMARY) NEOPLASM, UNSPECIFIED Status: Acute (3) Malignant neoplasm of central portion of left female breast Code(s): C50.112 - MALIGNANT NEOPLASM OF CENTRAL PORTION OF LEFT FEMALE BREAST Status: Chronic - Plan cont current plan of care * medication reviewed as below * symptomatic treatment * observe in ccu tonight after surgery * tomorrow intrathecal chemotherapy * stable otherwise. Review of Systems - Review of Systems ENT: negative: Ear Pain, Ear Discharge, Nose Pain, Nose Discharge, Nose Congestion, Mouth Pain, Mouth Swelling, Throat Pain, Throat Swelling, Other Respiratory: negative: Cough, Dry, Shortness of Breath, Hemoptysis, SOB with Excertion, Pleuritic Pain, Sputum, Wheezing Cardiovascular: negative: Chest Pain, Palpitations, Orthopnea, Paroxysmal Noc. Dyspnea, Edema, Light Headedness, Other Gastrointestinal: negative: Nausea, Vomiting, Abdominal Pain, Diarrhea, Constipation, Melena, Hematochezia, Other Genitourinary: negative: Dysuria, Frequency, Incontinence, Hematuria, Retention , Other Musculoskeletal: negative: Neck Pain, Shoulder Pain, Arm Pain, Back Pain, Hand Pain, Leg Pain, Foot Pain, Other - Medications/Allergies Allergies/Adverse Reactions: Allergies Allergy/AdvReac Type Severity Reaction Status Date / Time No Known Allergies Allergy Verified 12/23/16 14:30 Medications: Current Medications Acetaminophen (Tylenol) 650 mg PO Q4H PRN PRN Reason: Headache/Fever or Pain Hydrocodone Bitart/Acetaminophen (Marion 5/325) 1 tab PO Q4H PRN PRN Reason: Pain Last Admin: 01/01/17 20:50 Dose: 1 tab Al Hydroxide/Mg Hydroxide (Maalox) 30 ml PO Q6H PRN PRN Reason: Heartburn or Indigestion Artificial Tears (Tears Naturale) 0 drop EA EYE PRN PRN PRN Reason: Dry Eyes Dexamethasone (Decadron) 4 mg SLOW IVP Q4HR [facility] Last Admin: 01/02/17 11:05 Dose: 4 mg Famotidine (Pepcid) 20 mg SLOW IVP Q12HR [facility] Last Admin: 01/02/17 11:05 Dose: 20 mg Guaifenesin (Robitussin Sf) 200 mg PO Q4H PRN PRN Reason: Cough Hydralazine HCl (Apresoline) 10 mg SLOW IVP Q4H PRN PRN Reason: Systolic BP > 180 Sodium Chloride (Normal Saline 0.9%) 1,000 mls @ 70 mls/hr IV .[id number] [facility] Last Admin: 01/02/17 02:04 Dose: 1,000 mls Cefazolin Sodium 1 gm/ Syringe (2.5 ml/ Sterile Water) 10 mls @ 120 mls/hr SLOW IVP Q8HR [facility] Stop: 01/03/17 06:04 Loperamide HCl (Imodium) 2 mg PO PRN PRN PRN Reason: Diarrhea/Loose Stools Loratadine (Claritin) 10 mg PO DAILYPRN PRN PRN Reason: Sinus Symptoms Magnesium Hydroxide (Milk Of Magnesium) 30 ml PO DAILYPRN PRN PRN Reason: Constipation Methotrexate Sodium (Methotrexate) 12 mg IT WILLCALL [facility] Stop: 01/03/17 19:00 Mineral Oil/White Petrolatum (Eucerin Cream) 0 gm TOP BIDPRN PRN PRN Reason: Dry Skin Morphine Sulfate (Morphine) 4 mg SLOW IVP Q3H PRN PRN Reason: PAIN SCALE 6-10 Last Admin: 01/02/17 05:14 Dose: 4 mg Ondansetron HCl (Zofran Odt) 4 mg PO Q6H PRN PRN Reason: Nausea/Vomiting Last Admin: 01/01/17 23:15 Dose: 4 mg Ondansetron HCl (Zofran) 4 mg IVP Q6H PRN PRN Reason: Nausea/Vomiting Senna (Senokot) 2 tab PO HSPRN PRN PRN Reason: Constipation Sodium Chloride ([place] Nasal [place] 0.65%) 0 ml EA NARE QIDPRN PRN PRN Reason: Nasal Congestion Sodium Chloride (Flush - Normal Saline) 10 ml IVF Q12HR [facility] Last Admin: 01/02/17 11:15 Dose: Not Given Sodium Chloride (Flush - Normal Saline) 10 ml IVF PRN PRN PRN Reason: Saline Flush Zolpidem Tartrate (Ambien) 5 mg PO HSPRN PRN PRN Reason: Insomnia Last Admin: 01/01/17 23:15 Dose: 5 mg
[2017-01-02] MEDS: CEFAZOLIN 1 GM, Syringe 2.5 ML in Sterile Water 7.5 ML SLOW IVP SCH ×2 (13:53→22:15)
[2017-01-02] MEDS ORDERED: CEFAZOLIN 1 GM in Sodium Chloride 0.9% 100 ML IVPB SCH (14:00)
--- NOTE | 2017-01-02 15:29 | CT ---
CT THORAX WITH IV CONTRAST CT ABDOMEN WITH IV CONTRAST: Date: 01/02/17 HISTORY: Restaging of breast cancer. COMPARISON: 11/30/15. FINDINGS: CT THORAX: There are postsurgical changes related to what appears to be left mastectomy with tissue yarn winder in place. A right breast prosthesis is present. Surgical clips are seen in the left axillary region. There is no evidence of axillary, hilar, or mediastinal lymphadenopathy. The lungs are clear without evidence of a pulmonary nodule, mass, or pleural effusion. No lytic or s clerotic osseous lesions are identified. There is mild right convex curvature of the thoracic spine. CT ABDOMEN: There is a subcentimeter, too small to characterize, hypodense lesion in the lateral aspect of the r ight hepatic lobe. Liver otherwise has a normal CT appearance. The spleen, pancreas, bilateral adrenal glands, kidneys, and abdominal aorta have a normal CT appear ance. There is no evidence of lymphadenopathy. There has been no other interval change. No lytic or sclero tic osseous lesion is identified. IMPRESSION: 1. No CT findings within the chest or abdomen to suggest metastatic disease. 2. Interval postsurgical change of each breast with left mastectomy and tissue yarn winder in place in the region of the left breast and a right breast prosthesis noted. 3. Stable hypodense lesion right hepatic lobe, likely related to small cyst. 4. Interval postsurgical changes left axilla. The previously noted mildly prominent lymph nodes are not seen on this exam. 5. Mild right convex scoliosis thoracic spine. POS: [facility]
[2017-01-02] MEDS: HYDROcodone/Acetaminophen 5/325 mg Tablet PO PRN (22:21)
[2017-01-03] MEDS: Dexamethasone 4 mg/ml Vial SLOW IVP SCH ×3 (01:21→09:31)
[2017-01-03] MEDS: CEFAZOLIN 1 GM, Syringe 2.5 ML in Sterile Water 7.5 ML SLOW IVP SCH (07:49)
[2017-01-03] MEDS: Sodium Chloride 0.9% 1,000 ML IV SCH (07:50)
[2017-01-03] MEDS: Famotidine/PF 20 mg/2ml Vial SLOW IVP SCH (09:31)
[2017-01-03 10:08] VITALS: BP 163/85; TEMP 96.5
--- NOTE | 2017-01-03 11:04 | DIS ---
DATE OF ADMISSION: 01/01/2017 DATE OF DISCHARGE: 01/03/2017 PRIMARY CARE PHYSICIAN: [facility]. DISCHARGE DISPOSITION: Home. PRIMARY DISCHARGE DIAGNOSES: 1. Status post Ommaya reservoir placement. 2. Status post intrathecal chemotherapy. SECONDARY DISCHARGE DIAGNOSES: Meningeal carcinomatosis, malignant neoplasm of left breast. PRIMARY PROCEDURE/OPERATION: Ommaya reservoir by Dr. Larios. RADIOLOGICAL INVESTIGATION: CT chest on admission showed no CT scan finding of metastasis in abdome n and chest. SIGNIFICANT LABORATORY DATA: Hemoglobin 14.7. INR 1.0. Creatinine 0.76, electrolytes normal. LFT s normal. Urinalysis, leukocyte trace. DISCHARGE MEDICATIONS: Patient will continue all her previous medication Decadron 4 mg p.o. q.8 santiago rly, Zofran 8 mg p.o. q.8 hourly p.r.n., Protonix 40 mg p.o. daily, prochlorperazine 10 mg p.o. q.6 hourly p.r.n., Diamox 250 mg p.o. b.i.d., oxycodone 5 mg q.6 hourly p.r.n. CONTRAINDICATIONS: None. CODE STATUS: FULL CODE. INPATIENT CONSULTANTS: Dr. Larios was consulted for Ommaya reservoir, Dr. Arriaga was consulted for intrathecal chemotherapy. TEST RESULTS PENDING ON DISCHARGE: None. ALLERGIES: No known drug allergies. DISCHARGE PLAN: Post hospital, patient will follow up with Dr. Larios for staple removal as instruc zander. Patient will follow up with Dr. Arriaga on Thursday for second dose of intrathecal chemotherapy. HOSPITAL COURSE: A 36-year-old female who has metastatic breast cancer and she has meningeal carcin omatosis and secondary to that she has headache. During this admission, patient had Ommaya reservoi r placed by Dr. Larios, patient was given IV Decadron while in hospital for headache. On discharge, we continued all her previous medication. After Ommaya reservoir placed, patient was observed in CCU and next day, patient was transferred to Oncology floor, where she received intrathecal chemotherapy. Now, next dose is on coming Thursday. Hans bacon cleared her for discharge and they will follow up with outpatient basis for staple remov al. I saw this patient at bedside and examined. PHYSICAL EXAMINATION: VITAL SIGNS: Currently temperature 96.5, pulse 50, respiratory rate 18, saturation 98%, blood press ure 135/85, weight 148 pounds. GENERAL: Patient is currently alert, awake, no acute distress. HEAD: Normocephalic, atraumatic. LUNGS: Clear. CARDIAC: S1, S2 regular without any murmur. ABDOMEN: Soft and benign. EXTREMITIES: No edema. NEUROLOGIC: Nonfocal examination. Patient is medically stable for discharge today.
== END 2017-01-03 11:07 | disposition home or self-care (01) | DRG 27 ==
LOC: ONC 10:32 → CCU 01-02 10:01 → ONC 01-03 05:20
PROVIDERS: ADMIT Internal Medicine Medical Oncology; ATTEND Internal Medicine
PROC: 00H603Z Insertion of Infusion Device into Cerebral Ventricle, Open Approach (ICD-10-PCS; principal; 2017-01-02)
PROC: 3E0R305 Introduction of Other Antineoplastic into Spinal Canal, Percutaneous Approach (ICD-10-PCS; 2017-01-02)
DX: C79.49 Secondary malignant neoplasm of other parts of nervous system (principal); R51 Headache; Z85.3 Personal history of malignant neoplasm of breast; Z90.12 Acquired absence of left breast and nipple; Z17.0 Estrogen receptor positive status [ER+]; Z92.21 Personal history of antineoplastic chemotherapy
CPT/HCPCS: 36415; 71260; 74160; 80053; 81001; 83735; 84100; 85025; 85610; 85730; 87086; A4216; J0690; J1100; J2001; J2250; J2270; J2405; J2704; J3010; J3490; J7050; Q0162; S0028

== ENCOUNTER 2017-01-05 04:25 | Inpatient (IN) | payer OTHER ==
[2017-01-05] MEDS ORDERED: Lorazepam 2 MG/ML VIAL ONE ×2 (04:44→05:50)
[2017-01-05 05:09] LABS: #Lymphocytes 2.1 thou/uL (1.20-3.40); #Monocytes 1.7 thou/uL (0.11-0.59); #Neutrophils 14.2 thou/uL (1.40-6.50); %Basophils 0.1 % (0.0-1.0); %Eosinophils 0.2 % (0.0-10.0); %Lymphocytes 11.6 % (21.0-51.0); %Monocytes 9.4 % (0.0-10.0); Hematocrit 48.2 % (36.0-47.0); Mean Platelet Volume 7.4 fL (7.4-10.4)
[2017-01-05 05:12] LABS: PTT 23.2 SEC (22.9-36.1); Prothrombin Time 12.8 SEC (12.0-14.7)
[2017-01-05 05:20] LABS: Anion Gap 16 mmol/L (10-20); BUN (Urea Nitrogen) 11 mg/dL (7.0-18.7); Calc. Creatinine Clearance 0 mL/min (70-130); Calcium 10.1 mg/dL (7.8-10.44); Carbon Dioxide 27 mmol/L (22-29); Chloride 97 mmol/L (98-107); Estimated GFR-MDRD 86
--- NOTE | 2017-01-05 08:16 | CT ---
PRELIMINARY REPORT/[facility]/EMERGENCY AFTER HOURS PROCEDURE: EXAM: CT Head Without Intravenous Contrast CLINICAL HISTORY: 36 years old, female; Signs and symptoms; Other: Seizure; Prior surgery; Patient HX: Er 4; 36 yo f p resents to ed for seizure. Pt had brain surgery to remove brain tumor within the last week and start ed chemo within the last week. Pt had a seizure tonight and was postictal on ems arrival. Pt was pos tictal for 45 minutes then seized for a couple minutes on arrival to the ed. Pt has h/o breast cance r. TECHNIQUE: Axial computed tomography images of the head/brain without intravenous contrast. COMPARISON: CT Brain WO Con 2016-12-23 06:27 FINDINGS: No definite acute skull fracture. Included paranasal sinuses are essentially clear. No acute intracranial hemorrhage or mass effect. Right frontal ventriculostomy catheter now present. Tip of the catheter extends across the midline, lying in the left lateral ventricle. Ventricle size is within normal limits, not significantly changed. No definite acute infarct by CT. MRI could be more sensitive/specific for an acute infarct if clinically indicated. IMPRESSION: No acute intracranial hemorrhage or mass effect. No definite acute infarct by CT, see above. Ventriculostomy catheter, no hydrocephalus. Overall, the cortical sulci appear somewhat less prominent than on the recent comparison exam. Difficult to exclude some mild diffuse cerebral edema. Please correlate clinically. Followup may be helpful, as clinically directed. Thank you for allowing us to participate in the care of your patient. Dictated and Authenticated by: Naga Greenberg MD 01/05/2017 5:51 AM Central Time ([place] \T\ [place]) FINAL REPORT HEAD CT WITHOUT CONTRAST: DATE: 01/05/17. COMPARISON: 12/23/16. HISTORY: Prior brain surgery, removal of tumor, seizure. FINDINGS: I agree with the preliminary [facility] report. The imaged paranasal sinuses/mastoid air cells are well aerated. There is no displaced calvarial fracture. Cutaneous sonya are seen within the anterior left frontal scalp near the vertex. There is a ventriculostomy tube inserted via a right frontal ap proach, distal tip terminating in the region of the posterior aspect frontal horn left lateral ventr icle. There is diffuse loss of ramsey-white differentiation with crowding of the cortical sulci. There is n o midline shift. No discrete intracranial hemorrhage is seen. IMPRESSION: Cortical sulci are diffusely crowded and there is diffuse loss of ramsey-white differentiation when co mpared to prior imaging. This is suspicious for cerebral edema. No midline shift. Ventriculostomy tube in place. No intracranial hemorrhage. Followup brain MRI with and without contrast may be beneficial. POS: [facility]
[2017-01-05] MEDS ORDERED: Ondansetron HCl/PF 4 MG/2 ML Vial IVP PRN (09:15)
[2017-01-05] MEDS ORDERED: Ondansetron ODT 4 MG TAB SL PRN (09:15)
[2017-01-05] MEDS ORDERED: Acetaminophen 325 MG TAB PO PRN ×2 (09:15→09:23)
[2017-01-05] MEDS ORDERED: Sodium Chloride 0.65% Nasal 44 ML BOT EA NARE PRN (09:23)
[2017-01-05] MEDS ORDERED: Loperamide HCl 2 MG CAP PO PRN (09:23)
[2017-01-05] MEDS ORDERED: Mag-Al 1200 mg/1200 mg/30 ML UDCUP PO PRN (09:23)
[2017-01-05] MEDS ORDERED: Senokot 8.6 MG TAB PO PRN (09:23)
[2017-01-05] MEDS ORDERED: Artificial Tears 18 DROP/0.9 ML EA EYE PRN (09:23)
[2017-01-05] MEDS ORDERED: Lorazepam 2 MG/ML VIAL SLOW IVP PRN (09:23)
[2017-01-05] MEDS ORDERED: Ondansetron ODT 4 MG TAB PO PRN (09:23)
[2017-01-05] MEDS ORDERED: Diabetic Tussin 200 MG/10 ML UDCUP PO PRN (09:23)
[2017-01-05] MEDS ORDERED: Bisacodyl 10 MG SUPP PR PRN (09:23)
[2017-01-05] MEDS ORDERED: Loratadine 10 MG TAB PO PRN (09:23)
[2017-01-05] MEDS ORDERED: Eucerin (Mineral Oil/Petrolatum,White) 30 gm Jar TOP PRN (09:23)
[2017-01-05] MEDS ORDERED: Milk Of Magnesia 30 ML UDCUP PO PRN (09:23)
[2017-01-05] MEDS ORDERED: hydrALAZINE 20 MG/ML VIAL SLOW IVP PRN (09:23)
[2017-01-05] MEDS ORDERED: Morphine PF 1 MG/ML SYR IV PRN (09:30)
[2017-01-05] MEDS ORDERED: FLU VACC QS2017-18 36 mo. & older 0.5 ML SYRINGE IM ONE (09:45)
[2017-01-05 10:17] LABS: Amphetamine Not Detected (NotDetected); Methadone Not Detected (NotDetected); Methamphetamine Not Detected (NotDetected)
[2017-01-05] MEDS: Dexamethasone 4 mg/ml Vial SLOW IVP SCH ×3 (11:24→23:28)
--- NOTE | 2017-01-05 12:38 | HP ---
PRIMARY CARE PHYSICIAN: [facility]. REASON FOR ADMISSION: Seizure encephalopathy. HISTORY OF PRESENT ILLNESS: A 36-year-old -[place] female who was recently admitted in our hospital on 01/01/2017. At that time, the patient was presented with intractable headache and that was improved with intravenous steroid. During that admission, the patient had Ommaya reservoir plac ed and subsequently she was observed in ICU overnight and next day, the patient was transferred to o ncology floor. The patient was given intrathecal chemotherapy on 01/03/2017 and the patie nt was discharged on that day. The patient did very well on Thursday as well as Thursday. This morni ng, the patient was found with generalized tonic-clonic seizure that was witnessed by family member. Subsequently, the patient became confused and postictal, and the patient was brought to emergency room for evaluation. Per family member, she ate her dinner very well. She did not have any complaints yesterday, she was not complaining of headache, fever, only she was reporting some neck pain. She did not have any fo cami motor or sensory symptoms yesterday. At this point today, I am not able to get any history from her because the patient is completely enc ephalopathic and restless in postictal phase. Family member present at bedside and they only able t o provide this much history. PAST MEDICAL HISTORY: The patient has a history of moderately differentiated invasive ductal carcin david which was diagnosed in 05/2015, that was HER positive and hormone receptor positive. The patien t was treated with chemotherapy with Adriamycin and Cytoxan followed by Taxol. The patient also had surgery with left mastectomy. The patient had recently lumbar puncture done and the patient was di agnosed with meningeal carcinomatosis. Hypertension, not on any specific treatment. PAST SURGICAL HISTORY: Left mastectomy, lumbar puncture, Ommaya reservoir placed. PAST PSYCHIATRIC HISTORY: Reviewed and negative. ALLERGIES: No known drug allergies. FAMILY HISTORY: No strong family history of premature coronary artery disease, stroke or cancer. N o family history of breast cancer. SOCIAL HISTORY: The patient is single. She has 3 children, lives alone. She drinks alcohol social ly. She smokes marijuana periodically. She denies any smoking. REVIEW OF SYSTEMS: All review of systems tried to review with the patient, but unable to review at this point because the patient is encephalopathic and postictal phase. CURRENT HOME MEDICATIONS: Decadron 4 mg p.o. q.8 hourly, lisinopril 10 mg p.o. daily, metoprolol 50 mg p.o. b.i.d., Zofran 8 mg q.8 hourly p.r.n., Protonix 40 mg p.o. daily., acetazolamide 250 mg p. o. b.i.d., clonidine 0.1 mg p.o. at bedtime, oxycodone 5 mg q.6 hourly p.r.n., prochlorperazine 10 m g p.o. q.8 hourly p.r.n. PHYSICAL EXAMINATION: VITAL SIGNS: On arrival to the emergency room, blood pressure 191/97, pulse 63, respiratory rate 22 , temperature 98.5, saturation 99% on room air, weight 59 kilograms. GENERAL: The patient is currently encephalopathic. HEENT: Head: Normocephalic and atraumatic. Surgical site is clear and healthy. EYES: Pupils rou nd and reactive to light. Extraocular muscles are intact. ENT: Dry mucous membranes, no oral lesi ons, no pharyngeal erythema, no exudate. NECK: Supple. Range of motion is normal. LUNGS: Clear. CARDIAC: S1, S2 regular without any murmur. ABDOMEN: Soft, benign without any tenderness. No peritoneal sign, no guarding, no rigidity, no perez ound. BACK: Unremarkable, no CVA tenderness. EXTREMITIES: Upper extremity passive movements of all joints are normal. Lower extremity, no edema . Good peripheral pulsation. SKIN: No skin rash. HEMATOLOGICAL: No lymphadenopathy. PSYCHIATRIC: Unable to assess at this point. NEUROLOGIC: She is moving all 4 limbs. Detailed neurological examination is not possible at this p oint. SIGNIFICANT LABORATORIES: CT brain showing cerebellar edema, no hydrocephalus. CBC: WBC is 18.0, hemoglobin 14.6, and platelets 256. INR 1.0. BMP: Sodium 136, potassium 3.8, chloride 97, carbon dioxide 27, BUN 11, creatinine 0.91, glucose 146, calcium 10.1, magnesium 2.1. TSH 2.08. test negative. Urinalysis unremarkable. Urine drug screen positive for benzos and cannabinoids. ASSESSMENT AND PLAN/IMPRESSION: 1. New onset seizure. 2. Acute encephalopathy, likely due to postictal phase. 3. Cerebral edema. 4. Cannabis abuse. 5. Leukocytosis, likely related with seizure. 6. Hypertension. 7. Metastatic left-sided breast cancer. 8. 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 9. Status post recent intrathecal chemotherapy. 10. Status post recent Ommaya reservoir placement. PLAN: Observation to the stroke floor. Neurosurgery consult, Oncology consult. Neurology to decid e a seizure medication. Neurosurgery to give opinion regarding Ommaya reservoir and new onset seizu re. Oncology to consider giving chemotherapy intrathecally. We will resume the patient's blood pre ssure medication while in hospital. We will consider speech therapy evaluation. We will continue D ecadron 4 mg q.6 hourly, Pepcid 20 mg IV b.i.d. Seizure medications with Keppra 500 mg IV b.i.d. We will obtain EEG. Further investigation was deferred to Neurology. CODE STATUS: The patient is FULL CODE. The patient does not have a surrogate decision maker. Disposition plan based on clinical course. Plan of care discussed with the patient's family member at bedside.
[2017-01-05] MEDS ORDERED: METHOTREXATE SODIUM IT SCH (12:45)
[2017-01-05] MEDS ORDERED: PRE FILLED IT SCH (12:45)
[2017-01-05] MEDS ORDERED: Methotrexate Sodium/PF 12 MG in Admixture Fee 1 EACH IV SCH (13:15)
[2017-01-05 19:01] VITALS: BMI 22.4
[2017-01-05] MEDS: Famotidine/PF 20 mg/2ml Vial SLOW IVP SCH (19:49)
--- NOTE | 2017-01-06 02:16 | CON ---
DATE OF CONSULTATION: 01/05/2017 REASON FOR CONSULTATION: Seizure. HISTORY OF PRESENT ILLNESS: Ms. Gagnon is a pleasant, 36-year-old, -Vincentian female, who troncoso s been consulted for evaluation of seizure. History is obtained from mother, who was present at bed side. Mother reports that patient has a diagnosis of breast cancer. She recently had a lumbar punc ture done, which showed elevated white cell count and was diagnosed with the carcinomatous meningiti s. She had undergone Ommaya reservoir and was given methotrexate this past Thursday. She did well post-infusion, had gone home without any complications. Yesterday night, she was noted by a family member to have a sudden onset of eyes rolling back toward the back of the head and stiffening of the whole body that lasted for 1-2 minutes followed by confusion and drowsiness. She was brought to [facility] Emergency Room where she was noted to be postictal. Per her mother, she has no prior h istory of seizure disorder. No prior history of any head trauma. No family history of seizures. PAST MEDICAL HISTORY: Significant for: 1. Breast cancer. 2. Carcinomatous meningitis. PAST SURGICAL HISTORY: Significant for left mastectomy, Ommaya reservoir placement. SOCIAL HISTORY: She is single and has 3 children. She drinks alcohol on occasions. She smokes mar [place] periodically. She denies smoking. FAMILY HISTORY: Noncontributory. CURRENT MEDICATIONS: Please review MAR. ALLERGIES: No known drug allergies. REVIEW OF SYSTEMS: As mentioned above in HPI, otherwise negative. PHYSICAL EXAMINATION: VITAL SIGNS: Blood pressure of 125/81, pulse of 63, temperature of 97.7, respirations of 16, O2 sat s of 98% on room air. GENERAL: Well-developed, well-nourished, -Vincentian female, in no apparent distress. RESPIRATORY: Clear to auscultation bilaterally. CARDIOVASCULAR: Regular rate and rhythm. NEUROLOGIC: Mental status: The patient is awake, alert, and oriented x3. She is somewhat drowsy f rom receiving recent medication, but able to wake up to verbal stimuli and able to follow commands a ppropriately. Cranial nerves: Pupils are 3 mm and reactive. Visual nathan are intact. Extraocula r muscles are intact. No nystagmus is noted. Face is symmetric. Tongue and uvula are midline. Mo tor exam showed normal tone and bulk with a 5/5 strength in both lower extremities. Sensory: Sensa tion appears intact. Deep tendon reflex is 2+ reflexes in both upper and lower extremities. Babins ki: Plantar responses flexion bilaterally. LABORATORY DATA: Labs are reviewed, which included CBC, BMP, TSH, urinalysis, urine drug screen, wh ich is significant for WBC of 18.0. Urine drug screen was positive for cannabinoids. IMAGING STUDIES: CT head without contrast was reviewed, which showed no acute intracranial abnormal ity. IMPRESSION: 1. Generalized tonic-clonic seizure. 2. Carcinomatous meningitis. 3. Breast cancer. ASSESSMENT AND PLAN: Ms. Gagnon is a pleasant, 36-year-old, -Vincentian female, who presented with the tonic-clonic seizure. At this time, I agree with starting her on Keppra 500 mg b.i.d. I discussed with mother that she needs to be on this medication at least for 1 year before thinking ab out discontinuing. She can be switched to oral Keppra 500 mg b.i.d. when she is able to take orally . Thank you for your consultation.
[2017-01-06 05:28] LABS: #Monocytes 0.6 thou/uL (0.11-0.59); #Neutrophils 9.8 thou/uL (1.40-6.50); %Basophils 0.1 % (0.0-1.0); %Eosinophils 0.1 % (0.0-10.0); %Monocytes 5.1 % (0.0-10.0); Mean Platelet Volume 7.6 fL (7.4-10.4); Red Blood Cell (RBC) Count 5.05 mill/uL (4.20-5.40); White Blood Cell (WBC) Count 11.4 thou/uL (4.8-10.8)
[2017-01-06] MEDS: Dexamethasone 4 mg/ml Vial SLOW IVP SCH ×2 (05:51→12:30)
[2017-01-06 05:58] LABS: Anion Gap 13 mmol/L (10-20); BUN (Urea Nitrogen) 15 mg/dL (7.0-18.7); Calc. Creatinine Clearance 101 mL/min (70-130); Calcium 10.4 mg/dL (7.8-10.44); Carbon Dioxide 27 mmol/L (22-29); Chloride 100 mmol/L (98-107); Estimated GFR-MDRD Greater than 90
[2017-01-06] MEDS: Famotidine/PF 20 mg/2ml Vial SLOW IVP SCH ×2 (09:35→21:00)
--- NOTE | 2017-01-06 11:21 | PRG ---
DATE OF SERVICE: 01/06/2017 SUBJECTIVE: Ms. Gagnon was monitored on Thursday in the ICU, transferred to the floor. On Thursday, underwent intrathecal methotrexate administration and this was tolerated well. She developed what sounds like a seizure Thursday evening. She was readmitted, head CT demonstrates no worrisome finding s with satisfactory positioning of the Ommaya reservoir and catheter with no evidence of postoperati ve hemorrhage. There is mild edema in the brain, but again, the patient has leptomeningeal carcinom atosis. She has been initiated on levetiracetam and is also on Decadron. This morning, she is doin g very well. She has had no further seizures and is neurologically intact. Her wound is healing we ll. She underwent methotrexate administration yesterday and this a chance if this is every other da y. We will be seeing the patient in followup in 2 weeks to remove her sonya.
[2017-01-06] MEDS: HYDROcodone/Acetaminophen 10/325 mg Tablet PO PRN ×2 (13:30→17:50)
--- NOTE | 2017-01-06 14:47 | PDOC.PN ---
- Subjective Encounter Start Date: 01/06/17 Encounter Start Time: 14:45 Subjective: feels much better.awake and alert today per family -: denies nay headache/vomiting/paraesthesias - Objective Resuscitation Status: Resuscitation Status FULL:Full Resuscitation MAR Reviewed: Yes Vital Signs & Weight: Vital Signs (12 hours) Temp Pulse Resp BP Pulse Ox 01/06/17 08:00 97.8 F 117 H 16 129/78 99 Weight Admit Weight 143 lb Weight 143 lb I&O: 01/05/17 01/06/17 01/07/17 06:59 06:59 06:59 Intake Total 102 Balance 102 Result Diagrams: 01/06/17 05:03 01/06/17 05:03 Additional Labs: Laboratory Tests 01/05/17 01/05/17 01/06/17 04:52 04:57 05:03 WBC 18.0 H 11.4 H Prolactin 66.08 H Phys Exam - Physical Examination Constitutional: NAD HEENT: PERRLA, moist MMs, sclera anicteric, oral pharynx no lesions sonya noted left frontal region Neck: no nodes, no JVD, supple, full ROM Respiratory: no wheezing, no rales, no rhonchi, clear to auscultation bilateral Cardiovascular: RRR, no significant murmur Gastrointestinal: soft, non-tender, no distention, positive bowel sounds Musculoskeletal: no edema, pulses present Neurological: non-focal, normal sensation, moves all 4 limbs Psychiatric: normal affect, A&O x 3 Skin: no rash Dx/Plan (1) Seizures Code(s): R56.9 - UNSPECIFIED CONVULSIONS Status: Acute (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 - SECONDARY MALIGNANT NEOPLASM OF OTH PARTS OF NERVOUS SYSTEM; C80.1 - MALIGNANT (PRIMARY) NEOPLASM, UNSPECIFIED Status: Chronic (3) Ommaya reservoir present Code(s): Z98.2 - PRESENCE OF CEREBROSPINAL FLUID DRAINAGE DEVICE Status: Chronic (4) Malignant neoplasm of central portion of left female breast Code(s): C50.112 - MALIGNANT NEOPLASM OF CENTRAL PORTION OF LEFT FEMALE BREAST Status: Chronic - Plan plan discussed w/ family, PT/OT, out of bed/ambulate, DVT proph w/SCDs Post-ictal state resolved.Clinically better.cont keppra per neurology -: NS eval done.no new recs regarding Ommaya reservoir. -: Oncology following.next dose of MTX tomorrow.cont Decadron PO -: Dc home after chemo tomorrow if stable -: discussed w family memebres and pt in detail.encourage ambulation * . Review of Systems - Review of Systems Constitutional: Weakness, Malaise. negative: Fever, Chills, Sweats, Other Respiratory: negative: Cough, Dry, Shortness of Breath, Hemoptysis, SOB with Excertion, Pleuritic Pain, Sputum, Wheezing Cardiovascular: negative: Chest Pain, Palpitations, Orthopnea, Paroxysmal Noc. Dyspnea, Edema, Light Headedness, Other Gastrointestinal: negative: Nausea, Vomiting, Abdominal Pain, Diarrhea, Constipation, Melena, Hematochezia, Other Genitourinary: negative: Dysuria, Frequency, Incontinence, Hematuria, Retention , Other Musculoskeletal: negative: Neck Pain, Shoulder Pain, Arm Pain, Back Pain, Hand Pain, Leg Pain, Foot Pain, Other Neurological: negative: Weakness, Numbness, Incoordination, Change in Speech, Confusion, Seizures, Other - Medications/Allergies Allergies/Adverse Reactions: Allergies Allergy/AdvReac Type Severity Reaction Status Date / Time No Known Allergies Allergy Verified 12/23/16 14:30 Medications: Current Medications Acetaminophen (Tylenol) 650 mg PO Q4H PRN PRN Reason: Headache/Fever or Pain Hydrocodone Bitart/Acetaminophen ([place] 10/325) 1 tab PO Q4H PRN PRN Reason: Moderate Pain (4-6) Last Admin: 01/06/17 13:30 Dose: 1 tab Al Hydroxide/Mg Hydroxide (Maalox) 30 ml PO Q6H PRN PRN Reason: Heartburn or Indigestion Artificial Tears (Tears Naturale) 0 drop EA EYE PRN PRN PRN Reason: Dry Eyes Bisacodyl (Dulcolax) 10 mg [place] Q24H PRN PRN Reason: Constipation Dexamethasone (Decadron) 4 mg PO Q8H [facility] Famotidine (Pepcid) 20 mg SLOW IVP Q12HR [facility] Last Admin: 01/06/17 09:35 Dose: 20 mg Guaifenesin (Robitussin Sf) 200 mg PO Q4H PRN PRN Reason: Cough Hydralazine HCl (Apresoline) 10 mg SLOW IVP Q4H PRN PRN Reason: Systolic BP > 180 Levetiracetam 500 mg/ Device 100 mls @ 200 mls/hr IVPB BID [facility] Last Admin: 01/06/17 09:35 Dose: 100 mls Loperamide HCl (Imodium) 2 mg PO PRN PRN PRN Reason: Diarrhea/Loose Stools Loratadine (Claritin) 10 mg PO DAILYPRN PRN PRN Reason: Sinus Symptoms Lorazepam (Ativan) 2 mg SLOW IVP Q15MIN PRN PRN Reason: Seizures Magnesium Hydroxide (Milk Of Magnesium) 30 ml PO DAILYPRN PRN PRN Reason: Constipation Mineral Oil/White Petrolatum (Eucerin Cream) 0 gm TOP BIDPRN PRN PRN Reason: Dry Skin Morphine Sulfate (Duramorph) 2 mg IV Q4H PRN PRN Reason: Severe Pain (7-10) Ondansetron HCl (Zofran Odt) 4 mg PO Q6H PRN PRN Reason: Nausea/Vomiting Ondansetron HCl (Zofran) 4 mg IVP Q6H PRN PRN Reason: Nausea/Vomiting Senna (Senokot) 2 tab PO HSPRN PRN PRN Reason: Constipation Sodium Chloride ([place] Nasal [place] 0.65%) 0 ml EA NARE QIDPRN PRN PRN Reason: Nasal Congestion Sodium Chloride (Flush - Normal Saline) 10 ml IVF Q12HR [facility] Last Admin: 01/06/17 09:35 Dose: 10 ml Sodium Chloride (Flush - Normal Saline) 10 ml IVF PRN PRN PRN Reason: Saline Flush Zolpidem Tartrate (Ambien) 5 mg PO HSPRN PRN PRN Reason: Insomnia
[2017-01-06] MEDS: Dexamethasone 4 MG TAB PO SCH (20:59)
[2017-01-07] MEDS: Dexamethasone 4 MG TAB PO SCH ×3 (04:17→21:13)
[2017-01-07 05:05] LABS: #Lymphocytes 1.1 thou/uL (1.20-3.40); #Monocytes 0.4 thou/uL (0.11-0.59); #Neutrophils 12.6 thou/uL (1.40-6.50); %Basophils 0.1 % (0.0-1.0); %Eosinophils 0.1 % (0.0-10.0); %Lymphocytes 7.9 % (21.0-51.0); %Monocytes 2.9 % (0.0-10.0); Hematocrit 41.5 % (36.0-47.0); Mean Platelet Volume 7.8 fL (7.4-10.4); Red Blood Cell (RBC) Count 4.58 mill/uL (4.20-5.40); White Blood Cell (WBC) Count 14.2 thou/uL (4.8-10.8)
[2017-01-07] MEDS ORDERED: SODIUM CHLORIDE 0.9% IT SCH (06:00)
[2017-01-07] MEDS ORDERED: METHOTREXATE SODIUM IT SCH (06:00)
[2017-01-07] MEDS: Famotidine/PF 20 mg/2ml Vial SLOW IVP SCH ×2 (08:45→20:58)
--- NOTE | 2017-01-07 12:11 | PDOC.PN ---
- Subjective Encounter Start Date: 01/07/17 Encounter Start Time: 12:10 Subjective: had one hour of double vision today .now resolved. -: not associated with headache or paraesthesias/weakness -: no F/C.no nausea/vomiting.no ataxia - Objective Resuscitation Status: Resuscitation Status FULL:Full Resuscitation MAR Reviewed: Yes Vital Signs & Weight: Vital Signs (12 hours) Temp Pulse Resp BP Pulse Ox 01/07/17 07:19 98.1 F 66 20 116/77 100 01/07/17 03:30 97.9 F 84 12 118/67 98 Weight Admit Weight 143 lb Weight 143 lb I&O: 01/06/17 01/07/17 01/08/17 06:59 06:59 06:59 Intake Total 102 1507 Balance 102 1507 Result Diagrams: 01/07/17 04:25 01/06/17 05:03 Phys Exam - Physical Examination Constitutional: NAD HEENT: PERRLA, moist MMs, sclera anicteric, TM's clear, oral pharynx no lesions no nystagmus.sonya in place frontal region w/o discharge/dehiscence Neck: no nodes, no JVD, supple, full ROM Respiratory: no wheezing, no rales, no rhonchi, clear to auscultation bilateral Cardiovascular: RRR, no significant murmur, no rub, gallop Gastrointestinal: soft, non-tender, no distention, positive bowel sounds Musculoskeletal: no edema, pulses present Neurological: non-focal, normal sensation, moves all 4 limbs Psychiatric: normal affect, A&O x 3 Dx/Plan (1) Seizures Code(s): R56.9 - UNSPECIFIED CONVULSIONS Status: Acute (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 - SECONDARY MALIGNANT NEOPLASM OF OTH PARTS OF NERVOUS SYSTEM; C80.1 - MALIGNANT (PRIMARY) NEOPLASM, UNSPECIFIED Status: Chronic (3) Ommaya reservoir present Code(s): Z98.2 - PRESENCE OF CEREBROSPINAL FLUID DRAINAGE DEVICE Status: Chronic (4) Malignant neoplasm of central portion of left female breast Code(s): C50.112 - MALIGNANT NEOPLASM OF CENTRAL PORTION OF LEFT FEMALE BREAST Status: Chronic (5) Diplopia Code(s): H53.2 - DIPLOPIA Status: Acute - Plan plan discussed w/ family, DVT proph w/SCDs Discussed diplopia symptoms w Neurology.will obtain MRI brain. -: unlijkley seizure.cont keppra for now. -: hemodynamically stable otherwise. -: MTX infusion later today.Oncology following. -: May DC later today if MRI w/o new changes * . Review of Systems - Review of Systems Constitutional: negative: Fever, Chills, Sweats, Weakness, Malaise, Other Respiratory: negative: Cough, Dry, Shortness of Breath, Hemoptysis, SOB with Excertion, Pleuritic Pain, Sputum, Wheezing Cardiovascular: negative: Chest Pain, Palpitations, Orthopnea, Paroxysmal Noc. Dyspnea, Edema, Light Headedness, Other Gastrointestinal: negative: Nausea, Vomiting, Abdominal Pain, Diarrhea, Constipation, Melena, Hematochezia, Other Genitourinary: negative: Dysuria, Frequency, Incontinence, Hematuria, Retention , Other Musculoskeletal: negative: Neck Pain, Shoulder Pain, Arm Pain, Back Pain, Hand Pain, Leg Pain, Foot Pain, Other Neurological: Other - Medications/Allergies Allergies/Adverse Reactions: Allergies Allergy/AdvReac Type Severity Reaction Status Date / Time No Known Allergies Allergy Verified 12/23/16 14:30 Medications: Current Medications Acetaminophen (Tylenol) 650 mg PO Q4H PRN PRN Reason: Headache/Fever or Pain Hydrocodone Bitart/Acetaminophen ([place] 10/325) 1 tab PO Q4H PRN PRN Reason: Moderate Pain (4-6) Last Admin: 01/06/17 17:50 Dose: 1 tab Al Hydroxide/Mg Hydroxide (Maalox) 30 ml PO Q6H PRN PRN Reason: Heartburn or Indigestion Artificial Tears (Tears Naturale) 0 drop EA EYE PRN PRN PRN Reason: Dry Eyes Bisacodyl (Dulcolax) 10 mg [place] Q24H PRN PRN Reason: Constipation Dexamethasone (Decadron) 4 mg PO Q8H [facility] Last Admin: 01/07/17 04:17 Dose: 4 mg Famotidine (Pepcid) 20 mg SLOW IVP Q12HR [facility] Last Admin: 01/07/17 08:45 Dose: 20 mg Guaifenesin (Robitussin Sf) 200 mg PO Q4H PRN PRN Reason: Cough Hydralazine HCl (Apresoline) 10 mg SLOW IVP Q4H PRN PRN Reason: Systolic BP > 180 Levetiracetam 500 mg/ Device 100 mls @ 200 mls/hr IVPB BID [facility] Last Admin: 01/07/17 08:45 Dose: 100 mls Methotrexate Sodium 12 mg/ (Sodium Chloride) 5 mls @ 0 mls/hr IT WILLCALL [facility]ALEY PRN Reason: As Directed Stop: 01/07/17 18:00 Loperamide HCl (Imodium) 2 mg PO PRN PRN PRN Reason: Diarrhea/Loose Stools Loratadine (Claritin) 10 mg PO DAILYPRN PRN PRN Reason: Sinus Symptoms Lorazepam (Ativan) 2 mg SLOW IVP Q15MIN PRN PRN Reason: Seizures Magnesium Hydroxide (Milk Of Magnesium) 30 ml PO DAILYPRN PRN PRN Reason: Constipation Mineral Oil/White Petrolatum (Eucerin Cream) 0 gm TOP BIDPRN PRN PRN Reason: Dry Skin Morphine Sulfate (Duramorph) 2 mg IV Q4H PRN PRN Reason: Severe Pain (7-10) Ondansetron HCl (Zofran Odt) 4 mg PO Q6H PRN PRN Reason: Nausea/Vomiting Ondansetron HCl (Zofran) 4 mg IVP Q6H PRN PRN Reason: Nausea/Vomiting Senna (Senokot) 2 tab PO HSPRN PRN PRN Reason: Constipation Sodium Chloride ([place] Nasal [place] 0.65%) 0 ml EA NARE QIDPRN PRN PRN Reason: Nasal Congestion Sodium Chloride (Flush - Normal Saline) 10 ml IVF Q12HR [facility] Last Admin: 01/07/17 08:46 Dose: 10 ml Sodium Chloride (Flush - Normal Saline) 10 ml IVF PRN PRN PRN Reason: Saline Flush Zolpidem Tartrate (Ambien) 5 mg PO HSPRN PRN PRN Reason: Insomnia
[2017-01-07 13:58] LABS: Number Cells Counted-Fluids 100
[2017-01-07 21:27] LABS: ALT (SGPT) 23 U/L (8-55); AST (SGOT) 17 U/L (5-34); Alkaline Phosphatase 66 U/L (40-150); Anion Gap 17 mmol/L (10-20); BUN (Urea Nitrogen) 18 mg/dL (7.0-18.7); Bilirubin, Total 0.4 mg/dL (0.2-1.2); Calc. Creatinine Clearance 100 mL/min (70-130); Calcium 9.1 mg/dL (7.8-10.44); Carbon Dioxide 22 mmol/L (22-29); Chloride 104 mmol/L (98-107); Estimated GFR-MDRD Greater than 90; Globulin 3.3 g/dL (2.4-3.5); Protein, Total 6.7 g/dL (6.0-8.3)
[2017-01-07] MEDS: Vancomycin HCl 1.25 GM in Sodium Chloride 0.9% 250 ML 250 ML IVPB SCH (21:34)
[2017-01-07] MEDS: HYDROcodone/Acetaminophen 10/325 mg Tablet PO PRN (21:38)
[2017-01-07] MEDS ORDERED: cefTRIAXone\\ROCEPHIN 2 GM in Sodium Chloride 0.9% 100 ML IVPB SCH (22:00)
[2017-01-07] MEDS: cefTRIAXone\\ROCEPHIN 2 GM in Sodium Chloride 0.9% 100 ML IVPB SCH (23:04)
[2017-01-08] MEDS: HYDROcodone/Acetaminophen 10/325 mg Tablet PO PRN ×2 (04:24→18:22)
[2017-01-08] MEDS: Dexamethasone 4 MG TAB PO SCH ×3 (04:24→21:00)
[2017-01-08 06:56] LABS: Calc. Creatinine Clearance 119 mL/min (70-130); Estimated GFR-MDRD Greater than 90
[2017-01-08] MEDS: Famotidine/PF 20 mg/2ml Vial SLOW IVP SCH ×2 (09:07→20:55)
[2017-01-08] MEDS: Vancomycin HCl 1.25 GM in Sodium Chloride 0.9% 250 ML 250 ML IVPB SCH ×2 (09:36→21:34)
[2017-01-08] MEDS: cefTRIAXone\\ROCEPHIN 2 GM in Sodium Chloride 0.9% 100 ML IVPB SCH (11:26)
--- NOTE | 2017-01-08 13:10 | CON ---
DATE OF CONSULTATION: 01/08/2017 REASON FOR CONSULTATION: Concern with findings in the CSF. 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 The patient wa s started on intrathecal methotrexate just a few days ago and developed seizures, which is likely a complication of intrathecal methotrexate. She was encephalopathic briefly in the period following t he seizure activity, most likely postictal, and now she has recovered her mental state. Right now, she has no headaches, no visual symptoms, sore throat, odynophagia, dysphagia, no cough or sputum pr oduction or chest pain, no abdominal pain or diarrhea. No genitourinary symptoms. No joint symptom s except for chronic knee problems, which are not changed. PAST MEDICAL HISTORY: Includes breast cancer diagnosed in 05/2015 and then treated with chemotherap y and resection with left mastectomy, and now she has carcinomatous meningitis, had Ommaya reservoir placed recently and started intrathecal methotrexate few days ago, history of hypertension. PAST SURGICAL HISTORY: Mastectomy, lumbar puncture, Ommaya reservoir placement. ALLERGIES: None. FAMILY HISTORY: Noncontributory. SOCIAL HISTORY: Single, drinks occasionally, smokes occasionally, marijuana mostly, never cigarette s. CURRENT MEDICATIONS: Tylenol, [place], ceftriaxone, and vancomycin. PHYSICAL EXAMINATION: VITAL SIGNS: Normal, afebrile. SKIN: Shows the Ommaya reservoir site without inflammatory changes. Hair has been shaved, peripher al IV access. No lymphadenopathy. HEENT: Ocular movements are conjugate. Sclerae white. Oral cavity normal. Teeth in good shape. NECK: Supple, no jugular venous distention. LUNGS: Clear to auscultation and percussion. HEART: Normal. ABDOMEN: Soft, not distended or tender. EXTREMITIES: No joint inflammatory activity. Pulses are 1+ in dorsalis pedis. NEUROLOGIC: Examination is nonfocal including cognitive function. DIAGNOSTIC DATA: CSF with 84 WBCs, 36% neutrophils, 4% lymphocytes, glucose 95, and protein 11. Wh ite cell count was 18,000, now 14,000, hemoglobin 14 and 13, and platelets 245. Creatinine 0.81. N ormal liver profile. Albumin 3.4. Culture from CSF with Staphylococcus species yet to be identifie d and susceptibility tested. Two sets of blood cultures negative. The quantization of the colonies is few. ASSESSMENT: 1. 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 2. Cerebrospinal fluid findings with positive culture for staph species. DISCUSSION: The most likely scenario is contamination of the sample in view of the technique used f or submission as discussed with Dr. Perez. We will follow up the identification of the organism; if it turns out to be coagulase negative Staphylococcus, then we would believe it would be more lik matteo to represent contamination of the sample rather than a true infection of the CSF. In that case, we would advise discontinuation of antimicrobial therapy. Another sample was planned for, I believ e, tomorrow, and then repeat submission for cultures would be advisable to back up this initial impr ession.
--- NOTE | 2017-01-08 13:28 | PDOC.PN ---
- Subjective Encounter Start Date: 01/08/17 Encounter Start Time: 13:26 Subjective: feels much better.denies any fever/chills/headche/nausea/vomiting/ diplopia -: MRI can not be done due to breast expanders -: reprots good appetite. - Objective Resuscitation Status: Resuscitation Status FULL:Full Resuscitation MAR Reviewed: Yes Vital Signs & Weight: Vital Signs (12 hours) Temp Pulse Resp BP Pulse Ox 01/08/17 12:00 97.9 F 82 20 115/73 96 01/08/17 08:00 96.7 F L 70 18 139/88 94 L 01/08/17 03:46 97.9 F 75 16 126/72 100 Weight Admit Weight 143 lb Weight 143 lb I&O: 01/07/17 01/08/17 01/09/17 06:59 06:59 06:59 Intake Total 1507 2062 Balance 1507 2 Result Diagrams: 01/07/17 04:25 01/08/17 06:20 Additional Labs: Laboratory Tests 01/07/17 01/07/17 01/07/17 12:32 12:32 12:32 Fluid WBC (Manual) 84 H Fluid RBC (Manual) 33 H Fluid Seg Neutrophil % 36 H* CSF Glucose 95 H CSF Total Protein 11 L Microbiology 01/07/17 20:59 Venous blood - Right Arm Blood Culture - Preliminary Specimen has been received and culture in progress. No Growth to date. 01/07/17 20:49 Port - Right Subclavian Vein Blood Culture - Preliminary Specimen has been received and culture in progress. No Growth to date. 01/07/17 12:32 Spinal Fluid Culture Body Fluid Culture - Preliminary Staphylococcus species Phys Exam - Physical Examination Constitutional: NAD HEENT: PERRLA, moist MMs, sclera anicteric, oral pharynx no lesions Claudia right frontal region w/o erythema/warmth Neck: no nodes, no JVD, supple, full ROM Respiratory: no wheezing, no rales, no rhonchi, clear to auscultation bilateral Cardiovascular: RRR, no significant murmur, no rub, gallop, irregular Gastrointestinal: soft, non-tender, no distention, positive bowel sounds Musculoskeletal: no edema, pulses present Neurological: non-focal, normal sensation, moves all 4 limbs Psychiatric: normal affect, A&O x 3 Skin: no rash Dx/Plan (1) Seizures Code(s): R56.9 - UNSPECIFIED CONVULSIONS Status: Acute Comment: stable on keppra (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 - SECONDARY MALIGNANT NEOPLASM OF OTH PARTS OF NERVOUS SYSTEM; C80.1 - MALIGNANT (PRIMARY) NEOPLASM, UNSPECIFIED Status: Chronic (3) Ommaya reservoir present Code(s): Z98.2 - PRESENCE OF CEREBROSPINAL FLUID DRAINAGE DEVICE Status: Chronic (4) Malignant neoplasm of central portion of left female breast Code(s): C50.112 - MALIGNANT NEOPLASM OF CENTRAL PORTION OF LEFT FEMALE BREAST Status: Chronic (5) Diplopia Code(s): H53.2 - DIPLOPIA Status: Resolved (6) CSF abnormal Code(s): R83.9 - UNSPECIFIED ABNORMAL FINDING IN CEREBROSPINAL FLUID Status: Acute Comment: GPC.Final results pending - Plan continue antibiotics, out of bed/ambulate, DVT proph w/SCDs Clinically better.Started on IV ABx for GPC in CSF.ID consulted.appreciate -: cont Vanco for now.repeat CSF Cx to be sent tomorrow per Oncology -: cont Keppra.seizure free for now. -: cont supportive care. Cont walking program -: am labs * . Review of Systems - Review of Systems Constitutional: negative: Fever, Chills, Sweats, Weakness, Malaise, Other Respiratory: negative: Cough, Dry, Shortness of Breath, Hemoptysis, SOB with Excertion, Pleuritic Pain, Sputum, Wheezing Cardiovascular: negative: Chest Pain, Palpitations, Orthopnea, Paroxysmal Noc. Dyspnea, Edema, Light Headedness, Other Gastrointestinal: negative: Nausea, Vomiting, Abdominal Pain, Diarrhea, Constipation, Melena, Hematochezia, Other Genitourinary: negative: Dysuria, Frequency, Incontinence, Hematuria, Retention , Other Musculoskeletal: negative: Neck Pain, Shoulder Pain, Arm Pain, Back Pain, Hand Pain, Leg Pain, Foot Pain, Other Neurological: negative: Weakness, Numbness, Incoordination, Change in Speech, Confusion, Seizures, Other - Medications/Allergies Allergies/Adverse Reactions: Allergies Allergy/AdvReac Type Severity Reaction Status Date / Time No Known Allergies Allergy Verified 12/23/16 14:30 Medications: Current Medications Acetaminophen (Tylenol) 650 mg PO Q4H PRN PRN Reason: Headache/Fever or Pain Hydrocodone Bitart/Acetaminophen ([place] 10/325) 1 tab PO Q4H PRN PRN Reason: Moderate Pain (4-6) Last Admin: 01/08/17 04:24 Dose: 1 tab Al Hydroxide/Mg Hydroxide (Maalox) 30 ml PO Q6H PRN PRN Reason: Heartburn or Indigestion Artificial Tears (Tears Naturale) 0 drop EA EYE PRN PRN PRN Reason: Dry Eyes Bisacodyl (Dulcolax) 10 mg [place] Q24H PRN PRN Reason: Constipation Dexamethasone (Decadron) 4 mg PO Q8H [facility] Last Admin: 01/08/17 12:32 Dose: 4 mg Famotidine (Pepcid) 20 mg SLOW IVP Q12HR [facility] Last Admin: 01/08/17 09:07 Dose: 20 mg Guaifenesin (Robitussin Sf) 200 mg PO Q4H PRN PRN Reason: Cough Hydralazine HCl (Apresoline) 10 mg SLOW IVP Q4H PRN PRN Reason: Systolic BP > 180 Levetiracetam 500 mg/ Device 100 mls @ 200 mls/hr IVPB BID [facility] Last Admin: 01/08/17 09:06 Dose: 100 mls Vancomycin HCl 1.25 gm/ Sodium (Chloride) 250 mls @ 166.667 mls/hr IVPB Q12HR [facility] Last Admin: 01/08/17 09:36 Dose: 250 mls Loperamide HCl (Imodium) 2 mg PO PRN PRN PRN Reason: Diarrhea/Loose Stools Loratadine (Claritin) 10 mg PO DAILYPRN PRN PRN Reason: Sinus Symptoms Lorazepam (Ativan) 2 mg SLOW IVP Q15MIN PRN PRN Reason: Seizures Magnesium Hydroxide (Milk Of Magnesium) 30 ml PO DAILYPRN PRN PRN Reason: Constipation Mineral Oil/White Petrolatum (Eucerin Cream) 0 gm TOP BIDPRN PRN PRN Reason: Dry Skin Morphine Sulfate (Duramorph) 2 mg IV Q4H PRN PRN Reason: Severe Pain (7-10) Ondansetron HCl (Zofran Odt) 4 mg PO Q6H PRN PRN Reason: Nausea/Vomiting Ondansetron HCl (Zofran) 4 mg IVP Q6H PRN PRN Reason: Nausea/Vomiting Senna (Senokot) 2 tab PO HSPRN PRN PRN Reason: Constipation Sodium Chloride ([place] 0.65%) 0 ml EA NARE QIDPRN PRN PRN Reason: Nasal Congestion Sodium Chloride (Flush - Normal Saline) 10 ml IVF Q12HR [facility] Last Admin: 01/08/17 09:07 Dose: 10 ml Sodium Chloride (Flush - Normal Saline) 10 ml IVF PRN PRN PRN Reason: Saline Flush Zolpidem Tartrate (Ambien) 5 mg PO HSPRN PRN PRN Reason: Insomnia
[2017-01-09] MEDS: Dexamethasone 4 MG TAB PO SCH ×3 (04:30→22:03)
[2017-01-09] MEDS: HYDROcodone/Acetaminophen 10/325 mg Tablet PO PRN ×2 (05:47→16:13)
[2017-01-09] MEDS ORDERED: METHOTREXATE SODIUM IT SCH (06:00)
[2017-01-09] MEDS ORDERED: SODIUM CHLORIDE 0.9% IT SCH (06:00)
[2017-01-09 06:16] LABS: #Lymphocytes 1.3 thou/uL (1.20-3.40); #Monocytes 0.2 thou/uL (0.11-0.59); #Neutrophils 5.4 thou/uL (1.40-6.50); %Basophils 0.4 % (0.0-1.0); %Lymphocytes 18.4 % (21.0-51.0); %Monocytes 2.1 % (0.0-10.0); Hematocrit 39.4 % (36.0-47.0); Mean Platelet Volume 7.3 fL (7.4-10.4); Red Blood Cell (RBC) Count 4.34 mill/uL (4.20-5.40); White Blood Cell (WBC) Count 6.8 thou/uL (4.8-10.8)
[2017-01-09 06:24] LABS: Anion Gap 10 mmol/L (10-20); BUN (Urea Nitrogen) 13 mg/dL (7.0-18.7); Calc. Creatinine Clearance 121 mL/min (70-130); Calcium 9.4 mg/dL (7.8-10.44); Carbon Dioxide 27 mmol/L (22-29); Chloride 104 mmol/L (98-107); Estimated GFR-MDRD Greater than 90
[2017-01-09 06:31] LABS: Vancomycin, Trough 21.3 ug/mL
[2017-01-09] MEDS: Famotidine/PF 20 mg/2ml Vial SLOW IVP SCH ×2 (10:24→22:03)
[2017-01-09] MEDS: Vancomycin HCl 1.25 GM in Sodium Chloride 0.9% 250 ML 250 ML IVPB SCH ×2 (10:25→20:23)
--- NOTE | 2017-01-09 11:29 | PRG ---
DATE OF SERVICE: 01/09/2017 SUBJECTIVE: The patient is feeling about the same, a little any headaches, no visual symptoms, sore throat, odynophagia, dysphagia, no cough or sputum production or chest pain, no abdominal pain or d iarrhea. PHYSICAL EXAMINATION: VITAL SIGNS: T-max of 99.1. HEENT: Ocular movements are conjugate. LUNGS: Clear. HEART: S1, S2, regular rate. ABDOMEN: Soft, not distended or tender. Ommaya reservoir site without inflammatory changes. White cell count 6.8. Other findings include a decrease in neutrophil percentage 79%. Chemistry wi th a glucose of 113. The organism from the CSF identified as Staphylococcus epidermides, likely a c ontaminant of the sample. DISCUSSION: Carcinomatous meningitis with Ommaya reservoir and then a positive CSF culture after se izure activity which is probably related to the intrathecal methotrexate administration. At this po int, I recommend against treating this finding. The patient is going to have another sample submitt ed for confirmatory reasons and pursue the continuation of the chemotherapy as previously planned.
--- NOTE | 2017-01-09 12:25 | PDOC.PN ---
- Subjective Encounter Start Date: 01/09/17 Encounter Start Time: 12:24 Subjective: feels Ok. no new complaints.no changes overnight - Objective Resuscitation Status: Resuscitation Status FULL:Full Resuscitation MAR Reviewed: Yes Vital Signs & Weight: Vital Signs (12 hours) Temp Pulse Resp BP BP 01/09/17 08:00 99.1 F 63 16 127/82 127/82 Weight Admit Weight 143 lb Weight 143 lb I&O: 01/08/17 01/09/17 01/10/17 06:59 06:59 06:59 Intake Total 2061 2590 Balance 2061 2590 Result Diagrams: 01/09/17 05:20 01/09/17 05:20 Additional Labs: Microbiology 01/07/17 12:32 Spinal Fluid Culture Body Fluid Culture - Final Staphylococcus epidermidis 01/07/17 20:59 Venous blood - Right Arm Blood Culture - Preliminary Specimen has been received and culture in progress. No Growth to date. 01/07/17 20:59 Venous blood - Right Arm Blood Culture - Preliminary NO GROWTH AT 48 HOURS 01/07/17 20:49 Port - Right Subclavian Vein Blood Culture - Preliminary Specimen has been received and culture in progress. No Growth to date. 01/07/17 20:49 Port - Right Subclavian Vein Blood Culture - Preliminary NO GROWTH AT 48 HOURS Phys Exam - Physical Examination Constitutional: NAD HEENT: PERRLA, moist MMs, sclera anicteric, oral pharynx no lesions Neck: no nodes, no JVD, supple, full ROM Respiratory: no wheezing, no rales, no rhonchi, clear to auscultation bilateral Cardiovascular: RRR, no significant murmur, no rub, gallop, irregular Gastrointestinal: soft, non-tender, no distention, positive bowel sounds Musculoskeletal: no edema, pulses present Neurological: non-focal, normal sensation, moves all 4 limbs Psychiatric: normal affect, A&O x 3 Skin: no rash Dx/Plan (1) Seizures Code(s): R56.9 - UNSPECIFIED CONVULSIONS Status: Acute Comment: stable on keppra (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 - SECONDARY MALIGNANT NEOPLASM OF OTH PARTS OF NERVOUS SYSTEM; C80.1 - MALIGNANT (PRIMARY) NEOPLASM, UNSPECIFIED Status: Chronic Comment: repeat Pathology consistent with same again (3) Ommaya reservoir present Code(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 - Plan DVT proph w/SCDs CSF to be obtained again today.first Cx leonides a contaminant.on vancomycin -: Id and Oncology following.appreciate input. -: Hemodynamically stable.no more seizures.cont keppra -: MTX today per oncology.will check labs in am * . Review of Systems - Review of Systems Constitutional: negative: Fever, Chills, Sweats, Weakness, Malaise, Other ENT: negative: Ear Pain, Ear Discharge, Nose Pain, Nose Discharge, Nose Congestion, Mouth Pain, Mouth Swelling, Throat Pain, Throat Swelling, Other Respiratory: negative: Cough, Dry, Shortness of Breath, Hemoptysis, SOB with Excertion, Pleuritic Pain, Sputum, Wheezing Cardiovascular: negative: Chest Pain, Palpitations, Orthopnea, Paroxysmal Noc. Dyspnea, Edema, Light Headedness, Other Gastrointestinal: negative: Nausea, Vomiting, Abdominal Pain, Diarrhea, Constipation, Melena, Hematochezia, Other Genitourinary: negative: Dysuria, Frequency, Incontinence, Hematuria, Retention , Other Musculoskeletal: negative: Neck Pain, Shoulder Pain, Arm Pain, Back Pain, Hand Pain, Leg Pain, Foot Pain, Other Neurological: negative: Weakness, Numbness, Incoordination, Change in Speech, Confusion, Seizures, Other - Medications/Allergies Allergies/Adverse Reactions: Allergies Allergy/AdvReac Type Severity Reaction Status Date / Time No Known Allergies Allergy Verified 12/23/16 14:30 Medications: Current Medications Acetaminophen (Tylenol) 650 mg PO Q4H PRN PRN Reason: Headache/Fever or Pain Hydrocodone Bitart/Acetaminophen ([place] 10/325) 1 tab PO Q4H PRN PRN Reason: Moderate Pain (4-6) Last Admin: 01/09/17 05:47 Dose: 1 tab Al Hydroxide/Mg Hydroxide (Maalox) 30 ml PO Q6H PRN PRN Reason: Heartburn or Indigestion Artificial Tears (Tears Naturale) 0 drop EA EYE PRN PRN PRN Reason: Dry Eyes Bisacodyl (Dulcolax) 10 mg [place] Q24H PRN PRN Reason: Constipation Dexamethasone (Decadron) 4 mg PO Q8H [facility] Last Admin: 01/09/17 04:30 Dose: 4 mg Famotidine (Pepcid) 20 mg SLOW IVP Q12HR [facility] Last Admin: 01/09/17 10:24 Dose: 20 mg Guaifenesin (Robitussin Sf) 200 mg PO Q4H PRN PRN Reason: Cough Hydralazine HCl (Apresoline) 10 mg SLOW IVP Q4H PRN PRN Reason: Systolic BP > 180 Levetiracetam 500 mg/ Device 100 mls @ 200 mls/hr IVPB BID [facility] Last Admin: 01/09/17 10:00 Dose: 100 mls Vancomycin HCl 1.25 gm/ Sodium (Chloride) 250 mls @ 166.667 mls/hr IVPB Q12HR [facility] Last Admin: 01/09/17 10:25 Dose: 250 mls Methotrexate Sodium 12 mg/ (Sodium Chloride) 5 mls @ 600 mls/hr IT WILLCALL [facility] Stop: 01/09/17 20:00 Last Admin: 01/09/17 11:03 Dose: 5 mls Loperamide HCl (Imodium) 2 mg PO PRN PRN PRN Reason: Diarrhea/Loose Stools Loratadine (Claritin) 10 mg PO DAILYPRN PRN PRN Reason: Sinus Symptoms Lorazepam (Ativan) 2 mg SLOW IVP Q15MIN PRN PRN Reason: Seizures Last Admin: 01/09/17 05:48 Dose: 2 mg Magnesium Hydroxide (Milk Of Magnesium) 30 ml PO DAILYPRN PRN PRN Reason: Constipation Mineral Oil/White Petrolatum (Eucerin Cream) 0 gm TOP BIDPRN PRN PRN Reason: Dry Skin Miscellaneous Medication (Pharmacy To Dose) 0 each IVPB ASDIR [facility] Morphine Sulfate (Duramorph) 2 mg IV Q4H PRN PRN Reason: Severe Pain (7-10) Ondansetron HCl (Zofran Odt) 4 mg PO Q6H PRN PRN Reason: Nausea/Vomiting Ondansetron HCl (Zofran) 4 mg IVP Q6H PRN PRN Reason: Nausea/Vomiting Senna (Senokot) 2 tab PO HSPRN PRN PRN Reason: Constipation Sodium Chloride ([place] Nasal [place] 0.65%) 0 ml EA NARE QIDPRN PRN PRN Reason: Nasal Congestion Sodium Chloride (Flush - Normal Saline) 10 ml IVF Q12HR [facility] Last Admin: 01/09/17 10:05 Dose: 10 ml Sodium Chloride (Flush - Normal Saline) 10 ml IVF PRN PRN PRN Reason: Saline Flush Zolpidem Tartrate (Ambien) 5 mg PO HSPRN PRN PRN Reason: Insomnia
[2017-01-09] MEDS: Ondansetron HCl/PF 4 MG/2 ML Vial IVP PRN (16:08)
[2017-01-09 16:30] LABS: CSF, Glucose 97 mg/dl (40-70)
[2017-01-09] MEDS: Zolpidem Tartrate 5 MG TAB PO PRN (22:03)
[2017-01-10] MEDS: Vancomycin HCl 1.25 GM in Sodium Chloride 0.9% 250 ML 250 ML IVPB SCH ×3 (04:25→22:18)
[2017-01-10 06:21] LABS: Anion Gap 10 mmol/L (10-20); BUN (Urea Nitrogen) 16 mg/dL (7.0-18.7); Calc. Creatinine Clearance 111 mL/min (70-130); Calcium 9.1 mg/dL (7.8-10.44); Carbon Dioxide 28 mmol/L (22-29); Chloride 104 mmol/L (98-107); Estimated GFR-MDRD Greater than 90
[2017-01-10 06:36] LABS: Band 1 % (5-11); Hematocrit 37.8 % (36.0-47.0); Mean Platelet Volume 7.1 fL (7.4-10.4); Neutrophil 59 % (42-75); Red Blood Cell (RBC) Count 4.17 mill/uL (4.20-5.40); White Blood Cell (WBC) Count 7.1 thou/uL (4.8-10.8)
[2017-01-10] MEDS: Dexamethasone 4 MG TAB PO SCH ×2 (08:20→21:24)
[2017-01-10] MEDS: Famotidine/PF 20 mg/2ml Vial SLOW IVP SCH ×2 (08:20→21:25)
--- NOTE | 2017-01-10 11:41 | PDOC.PN ---
- Subjective Encounter Start Date: 01/10/17 Encounter Start Time: 11:39 Subjective: feels well. no new complaints/overnight events. -: no diplopia.no muscle weakness - Objective Resuscitation Status: Resuscitation Status FULL:Full Resuscitation MAR Reviewed: Yes Vital Signs & Weight: Vital Signs (12 hours) Temp Pulse Resp BP Pulse Ox 01/10/17 08:05 98.6 F 91 20 97 01/10/17 07:38 98.6 F 91 20 126/82 97 Weight Admit Weight 143 lb Weight 143 lb I&O: 01/09/17 01/10/17 01/11/17 06:59 06:59 06:59 Intake Total 2590 Balance 2590 Result Diagrams: 01/10/17 05:40 01/10/17 05:40 Additional Labs: Microbiology 01/07/17 12:32 Spinal Fluid Culture Body Fluid Culture - Final Staphylococcus epidermidis 01/09/17 15:30 Spinal Fluid Culture - Fluid Body Fluid Culture - Preliminary Staphylococcus species 01/09/17 15:30 Spinal Fluid Culture - Fluid Body Fluid Culture - Preliminary 01/07/17 20:59 Venous blood - Right Arm Blood Culture - Preliminary NO GROWTH AT 48 HOURS 01/07/17 20:49 Port - Right Subclavian Vein Blood Culture - Preliminary NO GROWTH AT 48 HOURS Phys Exam - Physical Examination Constitutional: NAD HEENT: PERRLA, moist MMs, sclera anicteric, oral pharynx no lesions Neck: no nodes, no JVD, supple, full ROM Respiratory: no wheezing, no rales, no rhonchi, clear to auscultation bilateral Cardiovascular: RRR, no significant murmur, no rub, gallop Gastrointestinal: soft, non-tender, no distention, positive bowel sounds Musculoskeletal: no edema, pulses present Neurological: non-focal, normal sensation, moves all 4 limbs Psychiatric: normal affect, A&O x 3 Skin: no rash Dx/Plan (1) Seizures Code(s): R56.9 - UNSPECIFIED CONVULSIONS Status: Acute Comment: stable on keppra (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 - SECONDARY MALIGNANT NEOPLASM OF OTH PARTS OF NERVOUS SYSTEM; C80.1 - MALIGNANT (PRIMARY) NEOPLASM, UNSPECIFIED Status: Chronic Comment: repeat Pathology consistent with same again (3) Ommaya reservoir present Code(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 - Plan DVT proph w/SCDs repaet CSF Cx showing Staph species as well? contaminated. -: cont vanco for now. ID and oncology following -: hemodynamicallay stable. cont supportive care -: cont keppra * . Review of Systems - Review of Systems Constitutional: negative: Fever, Chills, Sweats, Weakness, Malaise, Other Respiratory: negative: Cough, Dry, Shortness of Breath, Hemoptysis, SOB with Excertion, Pleuritic Pain, Sputum, Wheezing Cardiovascular: negative: Chest Pain, Palpitations, Orthopnea, Paroxysmal Noc. Dyspnea, Edema, Light Headedness, Other Gastrointestinal: negative: Nausea, Vomiting, Abdominal Pain, Diarrhea, Constipation, Melena, Hematochezia, Other Genitourinary: negative: Dysuria, Frequency, Incontinence, Hematuria, Retention , Other Musculoskeletal: negative: Neck Pain, Shoulder Pain, Arm Pain, Back Pain, Hand Pain, Leg Pain, Foot Pain, Other Neurological: negative: Weakness, Numbness, Incoordination, Change in Speech, Confusion, Seizures, Other - Medications/Allergies Allergies/Adverse Reactions: Allergies Allergy/AdvReac Type Severity Reaction Status Date / Time No Known Allergies Allergy Verified 12/23/16 14:30 Medications: Current Medications Acetaminophen (Tylenol) 650 mg PO Q4H PRN PRN Reason: Headache/Fever or Pain Hydrocodone Bitart/Acetaminophen ([place] 10/325) 1 tab PO Q4H PRN PRN Reason: Moderate Pain (4-6) Last Admin: 01/09/17 16:13 Dose: 1 tab Al Hydroxide/Mg Hydroxide (Maalox) 30 ml PO Q6H PRN PRN Reason: Heartburn or Indigestion Artificial Tears (Tears Naturale) 0 drop EA EYE PRN PRN PRN Reason: Dry Eyes Bisacodyl (Dulcolax) 10 mg [place] Q24H PRN PRN Reason: Constipation Dexamethasone (Decadron) 4 mg PO Q12HR [facility] Last Admin: 01/10/17 08:20 Dose: 4 mg Famotidine (Pepcid) 20 mg SLOW IVP Q12HR [facility] Last Admin: 01/10/17 08:20 Dose: 20 mg Guaifenesin (Robitussin Sf) 200 mg PO Q4H PRN PRN Reason: Cough Hydralazine HCl (Apresoline) 10 mg SLOW IVP Q4H PRN PRN Reason: Systolic BP > 180 Levetiracetam 500 mg/ Device 100 mls @ 200 mls/hr IVPB BID [facility] Last Admin: 01/10/17 08:19 Dose: 100 mls Vancomycin HCl 1.25 gm/ Sodium (Chloride) 250 mls @ 166.667 mls/hr IVPB 0400, 1200,2000 [facility] Last Admin: 01/10/17 04:25 Dose: 250 mls Loperamide HCl (Imodium) 2 mg PO PRN PRN PRN Reason: Diarrhea/Loose Stools Loratadine (Claritin) 10 mg PO DAILYPRN PRN PRN Reason: Sinus Symptoms Lorazepam (Ativan) 2 mg SLOW IVP Q15MIN PRN PRN Reason: Seizures Last Admin: 01/09/17 05:48 Dose: 2 mg Magnesium Hydroxide (Milk Of Magnesium) 30 ml PO DAILYPRN PRN PRN Reason: Constipation Mineral Oil/White Petrolatum (Eucerin Cream) 0 gm TOP BIDPRN PRN PRN Reason: Dry Skin Miscellaneous Medication (Pharmacy To Dose) 0 each IVPB ASDIR [facility] Morphine Sulfate (Duramorph) 2 mg IV Q4H PRN PRN Reason: Severe Pain (7-10) Ondansetron HCl (Zofran Odt) 4 mg PO Q6H PRN PRN Reason: Nausea/Vomiting Ondansetron HCl (Zofran) 4 mg IVP Q6H PRN PRN Reason: Nausea/Vomiting Last Admin: 01/09/17 16:08 Dose: 4 mg Senna (Senokot) 2 tab PO HSPRN PRN PRN Reason: Constipation Sodium Chloride ([place] Nasal [place] 0.65%) 0 ml EA NARE QIDPRN PRN PRN Reason: Nasal Congestion Sodium Chloride (Flush - Normal Saline) 10 ml IVF Q12HR [facility] Last Admin: 01/10/17 08:20 Dose: 10 ml Sodium Chloride (Flush - Normal Saline) 10 ml IVF PRN PRN PRN Reason: Saline Flush Zolpidem Tartrate (Ambien) 5 mg PO HSPRN PRN PRN Reason: Insomnia Last Admin: 01/09/17 22:03 Dose: 5 mg
[2017-01-10] MEDS: HYDROcodone/Acetaminophen 10/325 mg Tablet PO PRN ×2 (16:52→21:24)
[2017-01-10 19:46] LABS: Vancomycin, Trough 17.2 ug/mL
[2017-01-10] MEDS: Zolpidem Tartrate 5 MG TAB PO PRN (21:24)
[2017-01-11] MEDS: HYDROcodone/Acetaminophen 10/325 mg Tablet PO PRN ×2 (04:58→21:16)
[2017-01-11] MEDS: Vancomycin HCl 1.25 GM in Sodium Chloride 0.9% 250 ML 250 ML IVPB SCH ×2 (05:00→12:36)
[2017-01-11 05:25] LABS: Calc. Creatinine Clearance 118 mL/min (70-130); Estimated GFR-MDRD Greater than 90
[2017-01-11] MEDS ORDERED: Cyclobenzaprine 10 MG TAB PO PRN (08:23)
[2017-01-11] MEDS: Dexamethasone 4 MG TAB PO SCH ×2 (08:52→20:24)
[2017-01-11] MEDS: Famotidine/PF 20 mg/2ml Vial SLOW IVP SCH ×2 (08:52→20:24)
--- NOTE | 2017-01-11 09:40 | PDOC.PN ---
- Subjective Encounter Start Date: 01/11/17 Encounter Start Time: 09:39 Subjective: fels well but has worse neck pain today.no headache/nausea/diplopia. -: able to flex and extend neck but soreness that extends to side of neck -: no fever/chills - Objective Resuscitation Status: Resuscitation Status FULL:Full Resuscitation MAR Reviewed: Yes Vital Signs & Weight: Vital Signs (12 hours) Temp Pulse Resp BP Pulse Ox 01/11/17 08:00 99.2 F 70 14 131/89 98 Weight Admit Weight 143 lb Weight 143 lb I&O: 01/10/17 01/11/17 01/12/17 06:59 06:59 06:59 Intake Total 520 Balance 520 Result Diagrams: 01/10/17 05:40 01/11/17 04:30 Additional Labs: Microbiology 01/07/17 12:32 Spinal Fluid Culture Body Fluid Culture - Final Staphylococcus epidermidis 01/09/17 15:30 Spinal Fluid Culture - Fluid Body Fluid Culture - Preliminary Staphylococcus species 01/07/17 20:59 Venous blood - Right Arm Blood Culture - Preliminary NO GROWTH AT 48 HOURS 01/07/17 20:49 Port - Right Subclavian Vein Blood Culture - Preliminary NO GROWTH AT 48 HOURS Phys Exam - Physical Examination Constitutional: NAD HEENT: PERRLA, moist MMs, sclera anicteric, oral pharynx no lesions Neck: no nodes, no JVD, supple, full ROM supple. Respiratory: no wheezing, no rales, no rhonchi, clear to auscultation bilateral Cardiovascular: RRR, no significant murmur, no rub, gallop, irregular Gastrointestinal: soft, non-tender, no distention, positive bowel sounds Musculoskeletal: no edema, pulses present Neurological: non-focal, normal sensation, moves all 4 limbs Psychiatric: normal affect, A&O x 3 Skin: no rash Dx/Plan (1) Seizures Code(s): R56.9 - UNSPECIFIED CONVULSIONS Status: Acute Comment: stable on keppra (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 - SECONDARY MALIGNANT NEOPLASM OF OTH PARTS OF NERVOUS SYSTEM; C80.1 - MALIGNANT (PRIMARY) NEOPLASM, UNSPECIFIED Status: Chronic Comment: repeat Pathology consistent with same again (3) Ommaya reservoir present Code(s): Z98.2 - PRESENCE OF CEREBROSPINAL FLUID DRAINAGE DEVICE Status: Chronic (4) Malignant neoplasm of central portion of left female breast Code(s): C50.112 - MALIGNANT NEOPLASM OF CENTRAL PORTION OF LEFT FEMALE BREAST Status: Chronic (5) Diplopia Code(s): H53.2 - DIPLOPIA Status: Resolved (6) CSF abnormal Code(s): R83.9 - UNSPECIFIED ABNORMAL FINDING IN CEREBROSPINAL FLUID Status: Acute Comment: GPC-Staph epidermidis X 2 - Plan plan discussed w/ family, DVT proph w/SCDs cont Vancomycin.hemodynamically stable -: no meningeal signs at this time,[lee coyle musculoskeletal. -: will try heating pad and muscle relaxants. -: will d/w ID w recs for final ABx choice. -: ? contaminant Vs true meningitis. * . Review of Systems - Review of Systems Constitutional: negative: Fever, Chills, Sweats, Weakness, Malaise, Other Respiratory: negative: Cough, Dry, Shortness of Breath, Hemoptysis, SOB with Excertion, Pleuritic Pain, Sputum, Wheezing Gastrointestinal: negative: Nausea, Vomiting, Abdominal Pain, Diarrhea, Constipation, Melena, Hematochezia, Other Genitourinary: negative: Dysuria, Frequency, Incontinence, Hematuria, Retention , Other Musculoskeletal: Neck Pain Neurological: negative: Weakness, Numbness, Incoordination, Change in Speech, Confusion, Seizures, Other - Medications/Allergies Allergies/Adverse Reactions: Allergies Allergy/AdvReac Type Severity Reaction Status Date / Time No Known Allergies Allergy Verified 12/23/16 14:30 Medications: Current Medications Acetaminophen (Tylenol) 650 mg PO Q4H PRN PRN Reason: Headache/Fever or Pain Hydrocodone Bitart/Acetaminophen ([place] 10/325) 1 tab PO Q4H PRN PRN Reason: Moderate Pain (4-6) Last Admin: 01/11/17 04:58 Dose: 1 tab Al Hydroxide/Mg Hydroxide (Maalox) 30 ml PO Q6H PRN PRN Reason: Heartburn or Indigestion Artificial Tears (Tears Naturale) 0 drop EA EYE PRN PRN PRN Reason: Dry Eyes Bisacodyl (Dulcolax) 10 mg [place] Q24H PRN PRN Reason: Constipation Cyclobenzaprine HCl (Flexeril) 10 mg PO TID PRN PRN Reason: Muscle Spasm Dexamethasone (Decadron) 4 mg PO Q12HR [facility] Last Admin: 01/11/17 08:52 Dose: 4 mg Famotidine (Pepcid) 20 mg SLOW IVP Q12HR [facility] Last Admin: 01/11/17 08:52 Dose: 20 mg Guaifenesin (Robitussin Sf) 200 mg PO Q4H PRN PRN Reason: Cough Hydralazine HCl (Apresoline) 10 mg SLOW IVP Q4H PRN PRN Reason: Systolic BP > 180 Levetiracetam 500 mg/ Device 100 mls @ 200 mls/hr IVPB BID [facility] Last Admin: 01/11/17 08:53 Dose: 100 mls Vancomycin HCl 1.25 gm/ Sodium (Chloride) 250 mls @ 166.667 mls/hr IVPB 0400, 1200,2000 [facility] Last Admin: 01/11/17 05:00 Dose: 250 mls Loperamide HCl (Imodium) 2 mg PO PRN PRN PRN Reason: Diarrhea/Loose Stools Loratadine (Claritin) 10 mg PO DAILYPRN PRN PRN Reason: Sinus Symptoms Lorazepam (Ativan) 2 mg SLOW IVP Q15MIN PRN PRN Reason: Seizures Last Admin: 01/09/17 05:48 Dose: 2 mg Magnesium Hydroxide (Milk Of Magnesium) 30 ml PO DAILYPRN PRN PRN Reason: Constipation Mineral Oil/White Petrolatum (Eucerin Cream) 0 gm TOP BIDPRN PRN PRN Reason: Dry Skin Miscellaneous Medication (Pharmacy To Dose) 0 each IVPB ASDIR [facility] Morphine Sulfate (Duramorph) 2 mg IV Q4H PRN PRN Reason: Severe Pain (7-10) Ondansetron HCl (Zofran Odt) 4 mg PO Q6H PRN PRN Reason: Nausea/Vomiting Ondansetron HCl (Zofran) 4 mg IVP Q6H PRN PRN Reason: Nausea/Vomiting Last Admin: 01/09/17 16:08 Dose: 4 mg Senna (Senokot) 2 tab PO HSPRN PRN PRN Reason: Constipation Sodium Chloride ([place] Nasal [place] 0.65%) 0 ml EA NARE QIDPRN PRN PRN Reason: Nasal Congestion Sodium Chloride (Flush - Normal Saline) 10 ml IVF Q12HR [facility] Last Admin: 01/11/17 08:53 Dose: 10 ml Sodium Chloride (Flush - Normal Saline) 10 ml IVF PRN PRN PRN Reason: Saline Flush Zolpidem Tartrate (Ambien) 5 mg PO HSPRN PRN PRN Reason: Insomnia Last Admin: 01/10/17 21:24 Dose: 5 mg
[2017-01-11 12:11] LABS: Vancomycin, Trough 8.4 ug/mL
[2017-01-11] MEDS: Vancomycin HCl 1.5 GM in Sodium Chloride 0.9% 250 ML 300 ML IVPB SCH ×2 (14:22→21:13)
[2017-01-12] MEDS: Vancomycin HCl 1.5 GM in Sodium Chloride 0.9% 250 ML 300 ML IVPB SCH (05:00)
[2017-01-12 05:58] LABS: Calc. Creatinine Clearance 123 mL/min (70-130); Estimated GFR-MDRD Greater than 90
--- NOTE | 2017-01-12 08:12 | PDOC.PN ---
- Subjective Encounter Start Date: 01/12/17 Encounter Start Time: 08:12 Subjective: feels good, wants to go home. no new complaints -: neck pain is much better.no seizures/vomiting.headache/diplopia - Objective Resuscitation Status: Resuscitation Status FULL:Full Resuscitation MAR Reviewed: Yes Vital Signs & Weight: Vital Signs (12 hours) Temp Pulse Resp BP Pulse Ox 01/12/17 04:00 98.6 F 74 18 126/85 100 01/12/17 03:00 99 01/12/17 00:00 98.1 F 52 L 18 140/95 H 96 Weight Admit Weight 143 lb Weight 143 lb I&O: 01/11/17 01/12/17 01/13/17 06:59 06:59 06:59 Intake Total 520 1660 Balance 520 1660 Result Diagrams: 01/12/17 10:25 01/12/17 05:05 Additional Labs: Microbiology 01/09/17 15:30 Spinal Fluid Culture - Fluid Body Fluid Culture - Final Staphylococcus epidermidis 01/07/17 12:32 Spinal Fluid Culture Body Fluid Culture - Final Staphylococcus epidermidis 01/07/17 20:59 Venous blood - Right Arm Blood Culture - Preliminary NO GROWTH AT 48 HOURS 01/07/17 20:49 Port - Right Subclavian Vein Blood Culture - Preliminary NO GROWTH AT 48 HOURS Phys Exam - Physical Examination Constitutional: NAD HEENT: PERRLA, moist MMs, sclera anicteric, oral pharynx no lesions Neck: no nodes, no JVD, supple, full ROM Respiratory: no wheezing, no rales, no rhonchi, clear to auscultation bilateral Cardiovascular: RRR, no significant murmur, no rub, gallop, irregular Gastrointestinal: soft, non-tender, no distention, positive bowel sounds Musculoskeletal: no edema, pulses present Neurological: non-focal, normal sensation, moves all 4 limbs Psychiatric: normal affect, A&O x 3 Skin: no rash Dx/Plan (1) Seizures Code(s): R56.9 - UNSPECIFIED CONVULSIONS Status: Acute Comment: stable on keppra (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 - SECONDARY MALIGNANT NEOPLASM OF OTH PARTS OF NERVOUS SYSTEM; C80.1 - MALIGNANT (PRIMARY) NEOPLASM, UNSPECIFIED Status: Chronic Comment: repeat Pathology consistent with same again (3) Ommaya reservoir present Code(s): Z98.2 - PRESENCE OF CEREBROSPINAL FLUID DRAINAGE DEVICE Status: Chronic (4) Malignant neoplasm of central portion of left female breast Code(s): C50.112 - MALIGNANT NEOPLASM OF CENTRAL PORTION OF LEFT FEMALE BREAST Status: Chronic (5) Diplopia Code(s): H53.2 - DIPLOPIA Status: Resolved (6) CSF abnormal Code(s): R83.9 - UNSPECIFIED ABNORMAL FINDING IN CEREBROSPINAL FLUID Status: Acute Comment: GPC-Staph epidermidis X 2 - Plan plan discussed w/ family, DVT proph w/SCDs ? IV abx for protracted period given 2/2 samples w same bacterial -: discussed w ID-will need removal of Ommaya and protracted ABx IV -: hemoynamically stable.cont keppra. no more seizures. -: Will consult NS for shunt removal. -: Intrathecal MTX today per oncology. * . Review of Systems - Review of Systems Constitutional: negative: Fever, Chills, Sweats, Weakness, Malaise, Other ENT: negative: Ear Pain, Ear Discharge, Nose Pain, Nose Discharge, Nose Congestion, Mouth Pain, Mouth Swelling, Throat Pain, Throat Swelling, Other Respiratory: negative: Cough, Dry, Shortness of Breath, Hemoptysis, SOB with Excertion, Pleuritic Pain, Sputum, Wheezing Cardiovascular: negative: Chest Pain, Palpitations, Orthopnea, Paroxysmal Noc. Dyspnea, Edema, Light Headedness, Other Gastrointestinal: negative: Nausea, Vomiting, Abdominal Pain, Diarrhea, Constipation, Melena, Hematochezia, Other Genitourinary: negative: Dysuria, Frequency, Incontinence, Hematuria, Retention , Other Musculoskeletal: negative: Neck Pain, Shoulder Pain, Arm Pain, Back Pain, Hand Pain, Leg Pain, Foot Pain, Other Neurological: negative: Weakness, Numbness, Incoordination, Change in Speech, Confusion, Seizures, Other - Medications/Allergies Allergies/Adverse Reactions: Allergies Allergy/AdvReac Type Severity Reaction Status Date / Time No Known Allergies Allergy Verified 12/23/16 14:30 Medications: Current Medications Acetaminophen (Tylenol) 650 mg PO Q4H PRN PRN Reason: Headache/Fever or Pain Hydrocodone Bitart/Acetaminophen ([place] 10/325) 1 tab PO Q4H PRN PRN Reason: Moderate Pain (4-6) Last Admin: 01/11/17 21:16 Dose: 1 tab Al Hydroxide/Mg Hydroxide (Maalox) 30 ml PO Q6H PRN PRN Reason: Heartburn or Indigestion Artificial Tears (Tears Naturale) 0 drop EA EYE PRN PRN PRN Reason: Dry Eyes Bisacodyl (Dulcolax) 10 mg [place] Q24H PRN PRN Reason: Constipation Cyclobenzaprine HCl (Flexeril) 10 mg PO TID PRN PRN Reason: Muscle Spasm Dexamethasone (Decadron) 4 mg PO Q12HR [facility] Last Admin: 01/11/17 20:24 Dose: 4 mg Famotidine (Pepcid) 20 mg SLOW IVP Q12HR [facility] Last Admin: 01/11/17 20:24 Dose: 20 mg Guaifenesin (Robitussin Sf) 200 mg PO Q4H PRN PRN Reason: Cough Hydralazine HCl (Apresoline) 10 mg SLOW IVP Q4H PRN PRN Reason: Systolic BP > 180 Levetiracetam 500 mg/ Device 100 mls @ 200 mls/hr IVPB BID [facility] Last Admin: 01/11/17 20:24 Dose: 100 mls Vancomycin HCl 1.5 gm/ Sodium (Chloride) 300 mls @ 200 mls/hr IVPB 0500,1300, 2100 [facility] Last Admin: 01/12/17 05:00 Dose: 300 mls Loperamide HCl (Imodium) 2 mg PO PRN PRN PRN Reason: Diarrhea/Loose Stools Loratadine (Claritin) 10 mg PO DAILYPRN PRN PRN Reason: Sinus Symptoms Lorazepam (Ativan) 2 mg SLOW IVP Q15MIN PRN PRN Reason: Seizures Last Admin: 01/09/17 05:48 Dose: 2 mg Magnesium Hydroxide (Milk Of Magnesium) 30 ml PO DAILYPRN PRN PRN Reason: Constipation Mineral Oil/White Petrolatum (Eucerin Cream) 0 gm TOP BIDPRN PRN PRN Reason: Dry Skin Miscellaneous Medication (Pharmacy To Dose) 0 each IVPB ASDIR [facility] Morphine Sulfate (Duramorph) 2 mg IV Q4H PRN PRN Reason: Severe Pain (7-10) Ondansetron HCl (Zofran Odt) 4 mg PO Q6H PRN PRN Reason: Nausea/Vomiting Ondansetron HCl (Zofran) 4 mg IVP Q6H PRN PRN Reason: Nausea/Vomiting Last Admin: 01/09/17 16:08 Dose: 4 mg Senna (Senokot) 2 tab PO HSPRN PRN PRN Reason: Constipation Sodium Chloride ([place] Nasal [place] 0.65%) 0 ml EA NARE QIDPRN PRN PRN Reason: Nasal Congestion Sodium Chloride (Flush - Normal Saline) 10 ml IVF Q12HR [facility] Last Admin: 01/11/17 20:24 Dose: 10 ml Sodium Chloride (Flush - Normal Saline) 10 ml IVF PRN PRN PRN Reason: Saline Flush Zolpidem Tartrate (Ambien) 5 mg PO HSPRN PRN PRN Reason: Insomnia Last Admin: 01/10/17 21:24 Dose: 5 mg
[2017-01-12] MEDS: HYDROcodone/Acetaminophen 10/325 mg Tablet PO PRN ×3 (08:21→20:10)
[2017-01-12] MEDS: Famotidine/PF 20 mg/2ml Vial SLOW IVP SCH ×2 (08:22→19:58)
[2017-01-12] MEDS: Dexamethasone 4 MG TAB PO SCH ×2 (08:22→19:58)
[2017-01-12 10:49] LABS: Hematocrit 37.1 % (36.0-47.0); Mean Platelet Volume 6.9 fL (7.4-10.4); White Blood Cell (WBC) Count 8.2 thou/uL (4.8-10.8)
[2017-01-12 11:40] LABS: Band 1 % (5-11); Neutrophil 71 % (42-75)
[2017-01-12] MEDS ORDERED: METHOTREXATE SODIUM IT SCH (12:00)
--- NOTE | 2017-01-12 13:27 | PRG ---
DATE OF SERVICE: 01/12/2017 HISTORY: Ms. Gagnon is feeling well. No headaches. No visual symptoms, sore throat, odynophagia, dysphagia, no cough or sputum production or chest pain, no abdominal pain or diarrhea. PHYSICAL EXAMINATION: VITAL SIGNS: T-max 99.2, blood pressure 130/79, pulse 64, respirations 16-18, O2 sat 100%. GENERAL: Awake, alert, and oriented. Ommaya reservoir site is dry with sonya in place. Ocular movements are conjugate. Sclerae are white. Oral cavity normal. NECK: Supple. No jugular venous distention. LUNGS: Symmetric with clear breath sounds. HEART: S1 and S2, regular rate. No S3 or S4. ABDOMEN: Soft, not distended. EXTREMITIES: Moves all extremities equally. LABORATORY DATA: White cell count is 8.2, hemoglobin 12.3, platelets 238, 71% neutrophils. Sodium 138, creatinine 0.73. Liver profile normal. Albumin 3.4. Followup CSF with 3 WBCs and 10 RBCs. ASSESSMENT AND DISCUSSION: Carcinomatous meningitis with Ommaya reservoir, now positive cerebrospinal fluid culture x2 different samples. The seizure activity was probably related into intrathecal methotrexate administration. Coagulase negative Staph could be associated with the skin sampling method in view of the difficulty in accessing Ommaya reservoir. In view of the lack of symptoms, at this point, I would advise 2 weeks of oral Zyvox, which has excellent penetration in cerebrospinal fluid and then reassess after that. I discussed with Dr. Larios and it would be difficult to reinsert another Ommaya reservoir and I think the risk and benefit recommends continuation of the use of this one with coverage with Zyvox orally, may have to reassess this depending on clinical progress. MTDD
[2017-01-12 19:28] LABS: Number Cells Counted-Fluids 100
[2017-01-12] MEDS: Linezolid 600 MG TAB PO SCH (19:58)
[2017-01-12] MEDS: Ondansetron HCl/PF 4 MG/2 ML Vial IVP PRN (23:13)
[2017-01-13] MEDS: HYDROcodone/Acetaminophen 10/325 mg Tablet PO PRN ×2 (03:03→06:18)
[2017-01-13 07:05] LABS: Calc. Creatinine Clearance 97 mL/min (70-130); Estimated GFR-MDRD Greater than 90
[2017-01-13] MEDS: Linezolid 600 MG TAB PO SCH (08:20)
[2017-01-13] MEDS: Famotidine/PF 20 mg/2ml Vial SLOW IVP SCH (08:20)
[2017-01-13] MEDS: Dexamethasone 4 MG TAB PO SCH (08:20)
[2017-01-13 08:29] VITALS: BP 136/89
[2017-01-13 12:19] VITALS: TEMP 98.4
--- NOTE | 2017-01-13 12:21 | PRG ---
DATE OF SERVICE: 01/13/2017 SUBJECTIVE: She had a little bit of neck pain overnight and now it has improved. Actually, the nec k pain was quite intense; at one point, she graded it at 10/10 but now it is 4/10. No headaches, no visual symptoms, sore throat, odynophagia, dysphagia, no dyspnea or chest pain, no abdominal pain o r diarrhea. PHYSICAL EXAMINATION: VITAL SIGNS: She has been afebrile. Other vital signs are normal. GENERAL: Awake, alert, oriented, in no distress. NECK: Supple. HEENT: Ocular movements are conjugate. SKIN: Ommaya reservoir wound is healed with stitches or sonya in place, but no inflammatory cho es or tenderness. LUNGS: With symmetric clear breath sounds. HEART: Normal. ABDOMEN: Soft, not distended. LABORATORY DATA: The white cell count is 8.2, hemoglobin 12.3, platelets are 238. Creatinine 0.73, now 0.84, CSF was repeated yesterday with 35 WBCs with 86% neutrophils. The cultures are again wi th likely Staph epidermidis. 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 I discussed with Dr Christina Perez and Dr. Larios regarding the management options, and I believe it would be in her best [facility] at this point in time to continue with oral Zyvox for a month, rather than try intrathecal va ncomycin with rifampin. She may have to have the reservoir removed depending on her clinical course . Evidently, this is considering the overall outcome, particularly in reference to survival for thi s kind of stage of breast cancer.
--- NOTE | 2017-01-13 13:18 | PDOC.PN ---
- Subjective Encounter Start Date: 01/13/17 Encounter Start Time: 13:17 Subjective: neck pain better - Objective Resuscitation Status: Resuscitation Status FULL:Full Resuscitation MAR Reviewed: Yes Vital Signs & Weight: Vital Signs (12 hours) Temp Pulse Resp BP Pulse Ox 01/13/17 12:00 98.4 F 01/13/17 08:30 97.4 F L 81 18 100 01/13/17 08:28 97.4 F L 81 18 136/89 100 Weight Admit Weight 143 lb Weight 143 lb I&O: 01/12/17 01/13/17 01/14/17 06:59 06:59 06:59 Intake Total 1660 1500 Output Total 100 Balance 1660 1400 Result Diagrams: 01/12/17 10:25 01/13/17 06:36 Additional Labs: Microbiology 01/09/17 15:30 Spinal Fluid Culture - Fluid Body Fluid Culture - Final Staphylococcus epidermidis 01/07/17 20:59 Venous blood - Right Arm Blood Culture - Final NO GROWTH IN 5 DAYS 01/07/17 20:49 Port - Right Subclavian Vein Blood Culture - Final NO GROWTH IN 5 DAYS 01/07/17 12:32 Spinal Fluid Culture Body Fluid Culture - Final Staphylococcus epidermidis 01/12/17 17:45 Spinal Fluid Culture Body Fluid Culture - Preliminary Staphylococcus species Phys Exam - Physical Examination Constitutional: NAD HEENT: PERRLA, moist MMs, sclera anicteric, oral pharynx no lesions, 2+ tonsils [place] frontal area Neck: no nodes, no JVD, supple, full ROM Respiratory: no wheezing, no rales, no rhonchi, clear to auscultation bilateral Cardiovascular: RRR, no significant murmur Gastrointestinal: soft, non-tender, no distention, positive bowel sounds Musculoskeletal: no edema, pulses present Neurological: non-focal, normal sensation, moves all 4 limbs Psychiatric: normal affect, A&O x 3 Skin: no rash Dx/Plan (1) Seizures Code(s): R56.9 - UNSPECIFIED CONVULSIONS Status: Acute Comment: stable on keppra (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 - SECONDARY MALIGNANT NEOPLASM OF OTH PARTS OF NERVOUS SYSTEM; C80.1 - MALIGNANT (PRIMARY) NEOPLASM, UNSPECIFIED Status: Chronic Comment: repeat Pathology consistent with same again (3) Ommaya reservoir present Code(s): Z98.2 - PRESENCE OF CEREBROSPINAL FLUID DRAINAGE DEVICE Status: Chronic (4) Malignant neoplasm of central portion of left female breast Code(s): C50.112 - MALIGNANT NEOPLASM OF CENTRAL PORTION OF LEFT FEMALE BREAST Status: Chronic (5) Diplopia Code(s): H53.2 - DIPLOPIA Status: Resolved (6) CSF abnormal Code(s): R83.9 - UNSPECIFIED ABNORMAL FINDING IN CEREBROSPINAL FLUID Status: Acute Comment: GPC-Staph epidermidis X 2 - Plan PT/OT, respiratory therapy, incentive spirometry, out of bed/ambulate, DVT proph w/SCDs Zyvox X 1m onth.discussed w ID.CM updated. -: plans noted to leave [facility] in for now. -: DC when Ok w Oncolgy.concerns for neck pain -: may need to stay longer. -: hemodynamically stable.check CBC * . Review of Systems - Review of Systems Constitutional: negative: Fever, Chills, Sweats, Weakness, Malaise, Other Eyes: negative: Pain, Vision Change, Conjunctivae Inflammation, Eyelid Inflammation, Redness, Other ENT: negative: Ear Pain, Ear Discharge, Nose Pain, Nose Discharge, Nose Congestion, Mouth Pain, Mouth Swelling, Throat Pain, Throat Swelling, Other Respiratory: negative: Cough, Dry, Shortness of Breath, Hemoptysis, SOB with Excertion, Pleuritic Pain, Sputum, Wheezing Cardiovascular: negative: Chest Pain, Palpitations, Orthopnea, Paroxysmal Noc. Dyspnea, Edema, Light Headedness, Other Gastrointestinal: negative: Nausea, Vomiting, Abdominal Pain, Diarrhea, Constipation, Melena, Hematochezia, Other Genitourinary: negative: Dysuria, Frequency, Incontinence, Hematuria, Retention , Other Musculoskeletal: Neck Pain (improved). negative: Shoulder Pain, Arm Pain, Back Pain, Hand Pain, Leg Pain, Foot Pain, Other Neurological: negative: Weakness, Numbness, Incoordination, Change in Speech, Confusion, Seizures, Other - Medications/Allergies Allergies/Adverse Reactions: Allergies Allergy/AdvReac Type Severity Reaction Status Date / Time No Known Allergies Allergy Verified 12/23/16 14:30 Medications: Current Medications Acetaminophen (Tylenol) 650 mg PO Q4H PRN PRN Reason: Headache/Fever or Pain Hydrocodone Bitart/Acetaminophen ([place] 10/325) 1 tab PO Q4H PRN PRN Reason: Moderate Pain (4-6) Last Admin: 01/13/17 06:18 Dose: 1 tab Al Hydroxide/Mg Hydroxide (Maalox) 30 ml PO Q6H PRN PRN Reason: Heartburn or Indigestion Artificial Tears (Tears Naturale) 0 drop EA EYE PRN PRN PRN Reason: Dry Eyes Bisacodyl (Dulcolax) 10 mg [place] Q24H PRN PRN Reason: Constipation Cyclobenzaprine HCl (Flexeril) 10 mg PO TID PRN PRN Reason: Muscle Spasm Dexamethasone (Decadron) 4 mg PO Q12HR [facility] Last Admin: 01/13/17 08:20 Dose: 4 mg Famotidine (Pepcid) 20 mg SLOW IVP Q12HR [facility] Last Admin: 01/13/17 08:20 Dose: 20 mg Guaifenesin (Robitussin Sf) 200 mg PO Q4H PRN PRN Reason: Cough Hydralazine HCl (Apresoline) 10 mg SLOW IVP Q4H PRN PRN Reason: Systolic BP > 180 Levetiracetam 500 mg/ Device 100 mls @ 200 mls/hr IVPB BID [facility] Last Admin: 01/13/17 08:20 Dose: 100 mls Linezolid (Zyvox) 600 mg PO Q12HR [facility] Last Admin: 01/13/17 08:20 Dose: 600 mg Loperamide HCl (Imodium) 2 mg PO PRN PRN PRN Reason: Diarrhea/Loose Stools Loratadine (Claritin) 10 mg PO DAILYPRN PRN PRN Reason: Sinus Symptoms Lorazepam (Ativan) 2 mg SLOW IVP Q15MIN PRN PRN Reason: Seizures Last Admin: 01/09/17 05:48 Dose: 2 mg Magnesium Hydroxide (Milk Of Magnesium) 30 ml PO DAILYPRN PRN PRN Reason: Constipation Mineral Oil/White Petrolatum (Eucerin Cream) 0 gm TOP BIDPRN PRN PRN Reason: Dry Skin Miscellaneous Medication (Pharmacy To Dose) 0 each IVPB ASDIR [facility] Morphine Sulfate (Duramorph) 2 mg IV Q4H PRN PRN Reason: Severe Pain (7-10) Ondansetron HCl (Zofran Odt) 4 mg PO Q6H PRN PRN Reason: Nausea/Vomiting Ondansetron HCl (Zofran) 4 mg IVP Q6H PRN PRN Reason: Nausea/Vomiting Last Admin: 01/12/17 23:13 Dose: 4 mg Senna (Senokot) 2 tab PO HSPRN PRN PRN Reason: Constipation Sodium Chloride ([place] Nasal [place] 0.65%) 0 ml EA NARE QIDPRN PRN PRN Reason: Nasal Congestion Sodium Chloride (Flush - Normal Saline) 10 ml IVF Q12HR [facility] Last Admin: 01/13/17 08:21 Dose: 10 ml Sodium Chloride (Flush - Normal Saline) 10 ml IVF PRN PRN PRN Reason: Saline Flush Zolpidem Tartrate (Ambien) 5 mg PO HSPRN PRN PRN Reason: Insomnia Last Admin: 01/10/17 21:24 Dose: 5 mg
--- NOTE | 2017-01-13 14:39 | PRG ---
DATE OF SERVICE: 01/13/2017 Ms. Gagnon was readmitted for seizure, thought to be due to reaction to the methotrexate. She has since tolerated the methotrexate well. Unfortunately, CSF sampling demonstrated a positive microbia l growth in the form of Staphylococcus epidermis on 3 different cultures with a neutrophil shift. H er white count is now normal. She has been afebrile. Aside from mild stiffness in her neck last ni ght, this has since resolved. She has had no clinical findings for meningitis. Her wound is healin g well. She is neurologically intact and she looks the best I have seen her, even before surgery wh en she had significant nausea and vomiting. I spoke with our Oncology team and Dr. Conley and if we remove the Ommaya reservoir, then obviously t he patient will no longer have intrathecal route for chemotherapy. This is obviously not ideal give n her central nervous system tumor spread. She is being treated with Zyvox which has good central n ervous system penetration and again clinically, she has a well healed wound that is healing well and aside from the neck stiffness last night, nothing for meningitis. If we leave her Ommaya reservoir in place, then obviously, we will need long-term antibiotics while it is in place and this will all ow for continued access intrathecally, so that the patient could continue her chemotherapy and obvio usly the threshold removal would be if she develops signs and symptoms of meningitis or wound breakd own. I discussed this at length with the patient. She understands the risks as well as do Dr. Shaye gutierrez and I that the reservoir will remain in place at this point to allow the patient to continue to ge t her intrathecal chemotherapy. We will see her on Thursday morning in my clinic to remove her staple s. She understands that she may contact us should she develop any signs or symptoms.
--- NOTE | 2017-01-14 03:16 | DIS ---
DATE OF ADMISSION: 01/05/2017 DATE OF DISCHARGE: 01/13/2017 CONDITION AT THE TIME OF DISCHARGE: Stable and improved. PRIMARY CARE PHYSICIAN: [facility]. DISCHARGE DISPOSITION: Home. DISCHARGE FOLLOWUP: 1. Neurosurgery, Dr. Larios on 01/16/2017. 2. Oncology, Dr. Perez on 01/15/2017 at 9:30 in the morning. 3. Neurology, Dr. Meaghan Hutton in 2-3 weeks. 4. Infectious Disease, Dr. Conley. DISCHARGE DIAGNOSES: 1. Bacterial meningitis. 2. 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 4. Metastatic breast carcinoma. 5. History of hypertension. DISCHARGE MEDICATIONS: As follows: Catapres 0.1 mg at bedtime, acetazolamide 250 mg p.o. b.i.d., C ompazine 10 mg every 8 hours as needed, Protonix 40 mg daily, Decadron 4 mg daily until seen by Onco logy, lisinopril 10 mg daily, Keppra 500 mg p.o. b.i.d., Zofran as needed, Zyvox 600 mg p.o. b.i.d. for one month. PROCEDURES DONE IN THE HOSPITAL: Include: 1. CT scan of the brain upon presentation, which showed no acute changes except for possible cerebr al edema. Periventricular system normal in size, ventriculostomy tube at the right frontal approach intact. No acute intracranial hemorrhage or mass effect or acute infarctions. No midline shift. 2. Pleural fluid removal from the Ommaya reservoir in the right frontal area. Pathology consistent with atypical cells compatible with malignancy. 3. Administration of intrathecal methotrexate as per Oncology multiple times while in the hospital. CONSULTATIONS: Include: 1. Neurosurgery, Dr. Larios. 2. Oncology, Dr. Perez. 3. Infectious Disease, Dr. Conley. 4. Neurology, Dr. Meaghan Hutton. HISTORY OF PRESENTING ILLNESS: Ms. Gagnon is a very pleasant, but unfortunate 36-year-old - Syrian female with history of metastatic breast cancer with meningeal carcinomatosis, who presente d to the emergency room with complaints of seizures. Prior to this presentation, the patient was re cently admitted to our facility from 01/01/2017 to 01/03/2017 after placement of an Ommaya reservoir for administration of intrathecal methotrexate by Dr. Larios. She returned back the next day when she had a witnessed tonic-clonic seizure. The patient was significantly encephalopathic upon presen tation and was brought in by family members. She was admitted to stroke floor with a diagnosis of n ew-onset seizure. Her test was negative at the time of presentation. CT scan of the head done did not show any significant hydrocephalus, but was consistent with some cerebral edema. Onco logy and Neurosurgery were also consulted along with Neurology. She was started on Keppra 500 mg IV b.i.d. Please see admission history and physical for further details. HOSPITAL COURSE: The patient was seen by Neurology, Dr. Hutton and he recommended continuation of IV Keppra b.i.d. for now. The seizures were thought secondary to be the intrathecal methotrexate evalu ation. The patient had CSF removal done as there was some concern of infection of the Ommaya reserv oir. Dr. Larios also saw the patient and her CSF cultures which were actually drawn 3 times showed Staphylococcus epidermidis 2/3. Even though it is a skin contaminant, the likelihood of infection i n the setting of ventriculostomy tube in immunosuppressed patient was quite high. Infectious Diseas e was consulted and the decision was made to treat the patient. She was initially treated with IV v ancomycin in the hospital and it was later changed to oral Zyvox. Home Zyvox was arranged with the help of the case management. The patient remained afebrile throughout her hospitalization with impr ovement of leukocytosis as well. She did have on and off episodes of severe neck pain which were co nsistent with meningitis and involvement of the meninges with carcinoma. Eventually, the decision was made that the Ommaya reservoir will stay in as the risk of removal and the patient not receiving intrathecal methotrexate was unacceptable. She will take Zyvox for unfore seeable future and will follow up with Neurology, Neurosurgery, Infectious Disease as well as Kristy sen in the clinic. She was seen and examined prior to discharge and is hemodynamically stable. Please note that the donna mosley was not receiving her home medications, metoprolol and lisinopril in the hospital. These are restarted with the exception of metoprolol because her blood pressure has been fairly under better c ontrol. She was seen and examined on the day of discharge and is hemodynamically stable. Please see hospita list progress note from today's date for further detail including [id number] interaction. Total time spent in the discharge of this patient 35 minutes including discussion with multiple subs pecialists.
== END 2017-01-13 17:06 | disposition home or self-care (01) | DRG 100 ==
LOC: ERS 04:25 → 2SE 07:30 → OBSVTOIN 07:30 → ONC 12:09
PROVIDERS: ADMIT Internal Medicine; ATTEND Internal Medicine
DX: G40.509 Epileptic seizures related to external causes, not intractable, without status epilepticus (principal); G00.3 Staphylococcal meningitis; G93.6 Cerebral edema; C79.49 Secondary malignant neoplasm of other parts of nervous system; B95.7 Other staphylococcus as the cause of diseases classified elsewhere; T45.1X5A Adverse effect of antineoplastic and immunosuppressive drugs, initial encounter; I10 Essential (primary) hypertension; H53.2 Diplopia; F12.10 Cannabis abuse, uncomplicated; Z17.0 Estrogen receptor positive status [ER+]; Z90.12 Acquired absence of left breast and nipple; C50.112 Malignant neoplasm of central portion of left female breast
CPT/HCPCS: 36415; 70450; 80048; 80053; 80202; 80306; 81025; 82565; 82945; 83735; 84146; 84157; 84443; 84703; 85025; 85060; 85610; 85730; 87040; 87070; 87077; 87186; 87205; 88112; 89051; 95816; 95819; 96365; 96375; A4216; A4353; G8996-GN-CH; G8997-GN-CH; J0696; J1100; J1642; J1953; J2060; J2270; J2405; J3370; J7050; J8540; J9250; S0028

== ENCOUNTER 2017-01-21 14:19 | Inpatient (IN) | payer OTHER ==
[2017-01-21] MEDS ORDERED: Lidocaine 1% w/Epinephrine 1:200K 30 ML VIAL ONE (14:43)
[2017-01-21] MEDS ORDERED: Vancomycin HCl 1.5 GM in Sodium Chloride 0.9% 250 ML 300 ML IVPB SCH (15:00)
[2017-01-21] MEDS ORDERED: Ondansetron HCl/PF 10 MG in Sodium Chloride 0.9% 50 ML IVPB PRN (15:05)
[2017-01-21 15:06] LABS: #Lymphocytes 0.4 thou/uL (1.20-3.40); #Monocytes 0.2 thou/uL (0.11-0.59); #Neutrophils 7.3 thou/uL (1.40-6.50); %Basophils 0.2 % (0.0-1.0); %Eosinophils 0.2 % (0.0-10.0); %Lymphocytes 5.5 % (21.0-51.0); %Monocytes 2.1 % (0.0-10.0); Hematocrit 34.2 % (36.0-47.0); Mean Platelet Volume 6.6 fL (7.4-10.4); Red Blood Cell (RBC) Count 3.78 mill/uL (4.20-5.40)
[2017-01-21] MEDS ORDERED: HYDROcodone/Acetaminophen 10/325 mg Tablet PO PRN ×2 (15:11→15:12)
[2017-01-21] MEDS ORDERED: Fentanyl 100 MCG/2 ML VIAL ONE (15:53)
[2017-01-21] MEDS ORDERED: Senokot 8.6 MG TAB PO PRN (16:24)
[2017-01-21] MEDS ORDERED: Mag-Al 1200 mg/1200 mg/30 ML UDCUP PO PRN (16:24)
[2017-01-21] MEDS ORDERED: Bisacodyl 5 MG TAB PO PRN (16:24)
[2017-01-21] MEDS ORDERED: Acetaminophen 325 MG TAB PO PRN (16:24)
[2017-01-21] MEDS ORDERED: Calcium Carbonate 500 MG ChewTAB PO PRN (16:24)
[2017-01-21] MEDS ORDERED: Bupivacaine/Epinephrine 0.25% 30 ML VIAL ONE (16:39)
[2017-01-21] MEDS ORDERED: Bacitracin Zinc Ointment 30 gm TUBE ONE (16:51)
[2017-01-21] MEDS ORDERED: Sodium Chloride 0.9% 10 ML ONE (16:52)
--- NOTE | 2017-01-21 17:31 | CON ---
DATE OF CONSULTATION: 01/21/2017 HISTORY OF PRESENT ILLNESS: Ms. Gagnon is a 36-year-old -[place] female who recently had an Ommaya reservoir placed on 01/02/[address] Larios for administration of methotrexate intraventri cular for CSF leptomeningeal cells. Today she was at her doctor's appointment with Dr. Perez and had meningeal signs of fever and had nausea and vomiting. [facility] direct admit to the hospital and Neurosurgery was consulted because of concerns of the Ommaya res ervoir being infected. Dr. Munoz and I have seen the patient and will be removing the Ommaya res ervoir, placing an EVD. The patient has a significant past medical history of invasive ductal carcin david. On exam, the patient is GCS 15, alert and oriented x3. She is able to move all of her extremities an d has no dermatomal sensory loss in the upper or lower extremities bilaterally. She has stiffness in the neck and has a hard time with range of motion to the left. She also complains of headache and n ausea and reports fever. Family member was by her side at that time. She also has a history of erin c-clonic seizures that was witnessed by family members in the past. PAST MEDICAL HISTORY: Moderately differentiated invasive ductal carcinoma, which was diagnosed in that was HER-2 positive and hormone receptor positive. Patient was treated with chemotherapy w ith Adriamycin and Cytoxan followed by Taxol. The patient also had surgery with left mastectomy and had recent lumbar puncture done and was diagnosed with meningeal carcinomatosis. The patient has hyp ertension, is not on any specific treatment. PAST SURGICAL HISTORY: Left mastectomy, lumbar puncture, Ommaya reservoir placed. PAST PSYCHIATRIC HISTORY: Reviewed and negative. ALLERGIES: No known drug allergies. FAMILY HISTORY: No strong history of premature coronary artery disease, stroke or cancer. No family history of breast cancer. SOCIAL HISTORY: The patient is single. She has 3 children, lives alone. She drinks alcohol occasio bre and smokes marijuana periodically. She denies any smoking. REVIEW OF SYSTEMS: The patient reports fever, reports headache, reports nausea, reports meningeal si gns and stiffness of the neck and trouble rotating her neck to the left. Ten-point review of systems was completed and is otherwise stable unless stated in the above HPI. CURRENT MEDICATIONS: To be reviewed by patient. PHYSICAL EXAMINATION: VITAL SIGNS: Stable. GENERAL: The patient is alert and oriented x3, in no acute distress. HEENT: Normocephalic, atraumatic. Hearing intact. Moist mucous membranes. Trachea is midline. Robina campo has a right-sided incision that is healed over for the Ommaya reservoir placement in December. Eye s: Pupils are equal and reactive to light. Extraocular muscles are intact. Sclerae is white, nonic teric. NECK: Range of motion is limited to the left, complains of neck pain. LUNGS: The patient has bilateral symmetric chest rise, appears to have no shortness of breath. CARDIOVASCULAR: Regular rate and rhythm, normal S1, S2 heart sounds. No distal cyanosis or clubbing is noted. Pulses: +2 pulses in the upper extremity and the brachial and radial bilaterally. She h as +2 pulses in the lower extremities bilaterally in the posterior tibial pulses. EXTREMITIES: Upper extremity, normal range of motion. No edema. Normal strength. No dermatomal se nsory loss. Lower extremity normal range of motion and normal strength, no dermatomal sensory loss. PSYCHIATRIC: Normal affect. NEUROLOGIC: Cranial nerves II-XII are grossly intact. Her speech is fluent. She answers my questio ns appropriately. She is GCS of 15. Meningeal signs on exam. LABORATORY DATA: Shows hemoglobin 11.6, hematocrit 34.2, neutrophils 7.3, lymphocytes 0.4%. IMPRESSION: 1. Recent fever, meningeal signs of the neck and nausea and vomiting. 2. Infected Ommaya reservoir. 3. Hypertension. 4. Cannabis abuse. 5. Metastatic left-sided breast cancer. 6. 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 7. Recent intrathecal chemotherapy with methotrexate. 8. Status post Ommaya reservoir placement on 01/02/2017. ASSESSMENT AND PLAN: Due to the fever and meningeal signs and potential for neurologic decline, Ms. Gagnon is being brought to the operating room and the Ommaya reservoir will be taken out. An EVD wi ll be placed at that time. She will be placed on antibiotics and cerebrospinal fluid cultures will b e taken. If there are any further questions, please feel free to contact Neurosurgery.
--- NOTE | 2017-01-21 17:37 | PRG ---
NEUROSURGERY PROGRESS NOTE DATE OF SERVICE: 01/21/2017 I personally interviewed and examined the patient and agree with documentation of ki Martin PA-C 01/21/2017. Briefly, Luis Enrique Gagnon is a neurosurgery patient in our clinic. Dr. Larios is the neurosurgeon in e past. She has a history of breast cancer and breast cancer carcinomatous meningitis/ meningeal car cinomatosis. For that reason, Ommaya reservoir was placed by Dr. Larios about a little over a month ago. Postoperative course was complicated by Staphylococcal contamination infection in the CSF. She did manage with oral Zyvox and continued intrathecal chemotherapy as well as cranial spinal radiatio n. She never developed em meningitis until today. She started having significant headaches, nuch al rigidity, nausea and photophobia. She came to her oncology appointment, complaining of these thin gs and was sent to the emergency department. CSF studies recently showed increase in the cell count and increase in the number of organisms. Oncology has asked me to remove the Ommaya reservoir. INFORMED CONSENT: I discussed indications, risks, benefits, and alternatives to surgery. The risks discussed included, but were not limited to bleeding, infection, damage to the brain, CSF leak, strok e, paralysis, epilepsy, dependence for care, new major neurological deficit and . She understan ds the risks and wants to proceed.
[2017-01-21] MEDS ORDERED: Lidocaine 1% PF 5 ML VIAL ONE (18:13)
[2017-01-21] MEDS ORDERED: Glycopyrrolate 0.2 MG/ML 5 ML SYRINGE ONE (18:13)
[2017-01-21] MEDS ORDERED: Propofol 200 MG/20 ML VIAL ONE (18:13)
[2017-01-21] MEDS: Dextrose 5 %-0.45 % NaCl 1,000 ML IV SCH (19:43)
--- NOTE | 2017-01-21 19:43 | HP ---
CHIEF COMPLAINT: Fever with neck pain. HISTORY OF PRESENT ILLNESS: This is a 36-year-old female with a past medical history significant for metastatic breast cancer who has been undergoing chemo as well as radiation therapy, which both have been started during this month who presents to the hospital with fever as well as neck pain. The pa dimitri states that she has been seeing her oncologist who as of last week initially presented with pos sible signs of a RENTAL MANAGEMENT TRAINEE infection, but was not quite sure yet up until yesterday when she began having s ignificant fever as well as neck pain. She notified her physicians of the symptoms and she was later transferred to our facility for higher level of care, so that she could be managed. She has an Omma ya reservoir for which she is receiving intraventricular chemotherapy for methotrexate. She has been receiving this since 01/02. She also received her first dose of radiation therapy yesterday. As of now, she still complains of some neck stiffness and pain on the posterior aspect of her neck. She a lso complains of some headache, but otherwise denies any dizziness, blurred vision, double vision, ne urological deficits including numbness or tingling, slurred speech or weakness. She also denies any chest pain, shortness of breath, cough, nausea or vomiting. She has been sent to the preop room on t he surgical floor to undergo removal of the Ommaya reservoir and to possibly have EVD placed in. PAST MEDICAL HISTORY: As stated above. PAST SURGICAL HISTORY: Includes the Ommaya reservoir placed. SOCIAL HISTORY: The patient denies any tobacco, recreational drug use or alcoholic use. FAMILY HISTORY: Significant for cancer in the family. REVIEW OF SYSTEMS: Fourteen-point review of systems were reviewed and were negative other than what was mentioned in the HPI. PHYSICAL EXAMINATION: VITAL SIGNS: Temperature was 100.9, blood pressure is 103/70, pulse was 105, respiratory rate was 16 and the patient was satting 99% oxygen on room air. GENERAL: Patient was in no apparent distress, was resting comfortably in the bed, alert, awake and o riented x3. HEAD: Normocephalic and atraumatic. EYES: Pupils are round and reactive to light. Extraocular muscles are intact. Conjunctivae were pi nk. Sclerae were nonicteric. MOUTH: Oral mucosa pink and moist. No erythema was noted. NECK: Soft and supple. No JVD, no carotid bruits, no lymphadenopathy. CARDIOVASCULAR: Tachycardic, regular rhythm. S1 and S2 sounds are heard. No murmurs could be appre ciated. RESPIRATORY: Clear to auscultation bilaterally. No added sounds. ABDOMEN: Bowel sounds, soft, nontender and nondistended. EXTREMITIES: Pulses were 2+ both dorsalis and radial pulse. No pitting edema could be appreciated. LABORATORY DATA: White blood cell count was 8.0, hemoglobin 11.6, hematocrit was 34.2 and platelet c ount was 206. ASSESSMENT AND PLAN: 1. Probable meningeal signs with RENT[employer] MANAGEMENT TRAINEE infection due to the Ommaya reservoir currently in place. 2. Metastatic breast cancer. The patient is currently hemodynamically stable. As stated, the patient will undergo removal of the Ommaya reservoir and possibly having an EVD placed. We will get cultures during surgery. Start the patient on vancomycin. Place the patient on pain management control and will monitor accordingly. Crissy campo will follow up with Dr. Perez after the surgery and follow with recommendations accordingly.
--- NOTE | 2017-01-21 20:21 | OP ---
DATE OF SURGERY: 01/21/2017 PERFORMED BY: Laurie Munoz M.D. HEAVY LIFT RIGGER: Kenny Deal PA-C PREOPERATIVE INDICATION: Prevent further neurological deterioration. PREOPERATIVE DIAGNOSES: Carcinomatous meningitis, prior Ommaya reservoir placement, Staphylococcal m eningitis, worsening. POSTOPERATIVE DIAGNOSES: Carcinomatous meningitis, prior Ommaya reservoir placement, Staphylococcal meningitis, worsening. PROCEDURE: Removal of Ommaya reservoir placement of external ventricular drain. OPERATIVE DICTATION: The patient was brought to the operating room. General endotracheal anesthesia was induced. The patient was positioned supine on the operating table with her head supported by ge l-filled donut shaped head rest. The hair was removed from the right side of the scalp with electric clippers. We localized the previous incision and infused local anesthetic on both sides of it. The scalp was sterilely prepped and draped. We reopened her prior incision with a 15 blade knife and re moved remnants of Vicryl suture. Self-retaining retractor was placed. The Ommaya reservoir was with drawn and an external ventricular drain was placed into the ventricular system through the same traje ctory. There was brisk CSF flow. This was tunneled posteriorly through a separate stab incision, sanchez tured to the scalp and connected to the Diaz drain apparatus. Cranial incision was closed with int errupted 2-0 nylon in a vertical mattress fashion. A sterile dressing was applied. The Ommaya reser voir tip was sent for culture. This was a contaminated case.
[2017-01-21] MEDS: Vancomycin HCl 750 MG in Sodium Chloride 0.9% 250 ML 250 ML IVPB SCH (20:45)
[2017-01-21] MEDS ORDERED: Linezolid 600 MG in Premix Bag 1 BAG IVPB SCH (21:00)
[2017-01-22] MEDS: Dextrose 5 %-0.45 % NaCl 1,000 ML IV SCH ×3 (01:54→21:20)
[2017-01-22] MEDS: Vancomycin HCl 750 MG in Sodium Chloride 0.9% 250 ML 250 ML IVPB SCH ×5 (03:44→21:17)
[2017-01-22 05:56] LABS: Anion Gap 12 mmol/L (10-20); BUN (Urea Nitrogen) 8 mg/dL (7.0-18.7); Calc. Creatinine Clearance 99 mL/min (70-130); Calcium 8.3 mg/dL (7.8-10.44); Carbon Dioxide 21 mmol/L (22-29); Chloride 107 mmol/L (98-107); Estimated GFR-MDRD Greater than 90
[2017-01-22 06:23] LABS: Hematocrit 31.5 % (36.0-47.0); Mean Platelet Volume 6.8 fL (7.4-10.4); Red Blood Cell (RBC) Count 3.35 mill/uL (4.20-5.40); White Blood Cell (WBC) Count 4.6 thou/uL (4.8-10.8)
[2017-01-22 06:24] LABS: Band 1 % (5-11); Neutrophil 77 % (42-75)
[2017-01-22 09:08] LABS: CSF, Glucose 62 mg/dl (40-70)
--- NOTE | 2017-01-22 09:20 | PRG ---
DATE OF SERVICE: 01/22/2017 SUBJECTIVE: Ms. Gagnon is a 36-year-old female who has saw in the ICU this morning. Yesterday, we took out an Ommaya reservoir because of concern for infection and we placed an external ventricular d rain. We will continue to leave the drain open at 10 mL - water. OBJECTIVE: Her vital signs remain stable overnight. Her hemoglobin this morning is 10.2, hematocrit 31.5. PLAN: I have consulted Infectious Disease, Dr. Conley and Dr. Perez, is on the case for Oncology. This morning, we kept CSF samples and will send it off to lab for protein, glucose, Gram stain, and culture. We will make sure that two samples of CSF are negative to separate days, before we take the external ventricular drain out. Today, we will continue to watch her in the ICU. If there are any further questions, please feel free to contact Neurosurgery.
[2017-01-22 10:31] LABS: Number Cells Counted-Fluids 100
--- NOTE | 2017-01-22 10:58 | PRG ---
DATE OF SERVICE: 01/22/2017 NEUROSURGERY PROGRESS NOTE SUBJECTIVE: Ms. Gagnon is 1 day out from removal of her Ommaya reservoir and external ventricular d rain placement. She is neurologically well and her headache is gone. She would like to be out of e ICU, but she was connected to our external ventricular drainage system. We will need to hear from Oncology whether Ms. Gagnon would be a candidate for replacement of the Om jeannie reservoir perhaps from a left frontal approach this time or whether her intrathecal chemotherapy will be administered by lumbar puncture. If lumbar puncture is a preferred route, then we will want to make sure that Ms. Gagonn does not develop hydrocephalus. We will do this by clamping the drain , monitoring pressure for 24 hours. If it stays below 20 mmHg in the entire 24 hour period, and she is not developing hydrocephalus on her CT scan, then the drain could successfully be removed. On the other hand, she may need to be in the ICU with the drain in place until her body begins to circulate CSF better. Carcinomatous meningitis and bacterial meningitis are two ossicles to brisk to normal C SF circulation and we will have to be sure it is safe to remove the drain before we do so. If by chance he is a candidate for new Ommaya, we will have to sterilize the CSF, we will take seria l cultures each morning we will send CSF for culture. Once we have 2-3 mornings of negative culture at 48 hours, then we can think about replacement of Ommaya from a different trajectory.
--- NOTE | 2017-01-22 12:20 | PDOC.PN ---
- Subjective Encounter Start Date: 01/22/17 Encounter Start Time: 12:18 Patient seen at bedside. No overnight events. No new complaints. - Objective Resuscitation Status: Resuscitation Status FULL:Full Resuscitation MAR Reviewed: Yes Vital Signs & Weight: Vital Signs (12 hours) Temp 01/22/17 08:00 98.9 F 01/22/17 04:00 99.0 F Weight Weight 137 lb 4 oz Most Recent Monitor Data Heart Rate from ECG 103 NIBP 99/77 NIBP BP-Mean 90 Respiration from ECG 15 SpO2 100 I&O: 01/21/17 01/22/17 01/23/17 06:59 06:59 06:59 Intake Total 1265 120 Output Total 1530 41 Balance -265 79 Result Diagrams: 01/22/17 04:09 01/22/17 04:09 Phys Exam - Physical Examination Constitutional: NAD HEENT: moist MMs Neck: no JVD Respiratory: clear to auscultation bilateral Cardiovascular: RRR Gastrointestinal: soft Musculoskeletal: pulses present Neurological: non-focal EVD in place Psychiatric: A&O x 3 Skin: no rash Dx/Plan (1) Headache Code(s): R51 - HEADACHE Status: Acute (2) Fever Code(s): R50.9 - FEVER, UNSPECIFIED Status: Acute - Plan cont current plan of care, continue antibiotics * Continue to monitor with EVD. * F/U neurosx input * If therapy is to be given through LP, will need to ensure no hydrocephalus and sterile CSF * Continue with Rifampin and Vancomycin
--- NOTE | 2017-01-22 12:23 | CON ---
DATE OF CONSULTATION: 01/22/2017 REASON FOR CONSULTATION: Device associated meningitis. HISTORY OF PRESENT ILLNESS: A 36-year-old known to us from prior visits, who has a history of breast cancer diagnosed in 2015 with recurrence in the form of carcinomatous meningitis. The patient had O mmaya reservoir placed and developed Staphylococcus epidermides infection. Initially the attempt was made to conservative management, but that failed and the patient is admitted, had the Ommaya reservo ir removed. She is feeling much better. The headache has resolved. She also has noticed that visio n has improved since she started receiving radiation therapy. Also, the chemotherapy has probably he lped in reducing the malignancy affecting her visual pathways. No more nausea, no neck pain, no feve r, no chest pain, no abdominal pain or diarrhea. Voiding without difficulty. No joint symptoms. No other neurological symptoms. PAST MEDICAL HISTORY: Breast cancer treated in 05/2015 with recurrence in the form of carcinomatous meningitis, Ommaya reserve placement, now development of Staph epidermidis meningitis associated with Ommaya reservoir and hypertension. PAST SURGICAL HISTORY: Mastectomy, lumbar puncture, Ommaya reservoir placement. ALLERGIES: None. FAMILY HISTORY: Noncontributory. SOCIAL HISTORY: Smokes occasionally, never cigarettes, mostly marijuana. CURRENT MEDICATIONS: Hydrocodone, calcium, dextrose, ondansetron, vancomycin. I had also written fo r linezolid, but somehow it was discontinued. PHYSICAL EXAMINATION: VITAL SIGNS: T-max 100.9. She is now 98.9 and blood pressure 99/77, pulse 103, respirations 15, O2 sat 100%. GENERAL: Appears no distress. She has a ventriculostomy drain in place and peripheral IV access. N o Davis catheter. No lymphadenopathy. SKIN: Shows the Ommaya reservoir site with no significant findings. HEENT: Ocular movements are conjugate. Pupils are equal and reactive. Oral cavity normal. NECK: Supple. LUNGS: Symmetric clear breath sounds. HEART: S1, S2, regular rate. No S3 or S4. ABDOMEN: Soft, not distended or tender. No ascites. No bladder distention. EXTREMITIES: No joint inflammatory activity. Moves all extremities equally. NEUROLOGIC: Cognitive function appears to be intact. LABORATORY DATA: White cell count is 8000, now 4.6, hemoglobin 10.2, MCV 93, platelets 200, 77% neut rophils. Creatinine 0.79. CSF with 91 neutrophil, CSF protein 77. Pending spinal fluid cultures. The operative note was reviewed. The previous incision was identified with remnants of Vicryl suture removed, Ommaya reservoir withdrawn, an external ventricular drain placed into the ventricular syste m through the same trajectory with brisk CSF flow. This was tunneled through a separate stab incisio n and sutured to the scalp and connected to a drain apparatus. 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 DISCUSSION: The patient now to be on vancomycin. We will add rifampin 300 mg 3 times daily. We sharlene l check vancomycin levels, CSF and blood. May need to add linezolid depending on findings and clinic al progress. I am not sure if there is an intention off placing a new Ommaya reservoir or not. If t here is that intention, then we will have to sterilize the CSF fluid first, which will mean at least a week of treatment to attempting placement of a new device.
[2017-01-22] MEDS: Rifampin 300 MG CAP PO SCH ×2 (16:40→21:17)
[2017-01-22 20:37] LABS: Vancomycin, Trough 15.6 ug/mL
[2017-01-23] MEDS: Vancomycin HCl 750 MG in Sodium Chloride 0.9% 250 ML 250 ML IVPB SCH ×2 (02:53→09:00)
--- NOTE | 2017-01-23 07:43 | PRG ---
DATE OF SERVICE: 01/23/2017 Ms. Gagnon is 2 days out from removal of her Ommaya. We left the external ventricular drain in plac e. The drain has been draining CSF nicely. Ms. Gagnon is awake, alert, and oriented. I do not find any neurological deficits. We will begin to clamp the drain now. We will send serial cultures over the next 3 days. On Thursday when Dr. Larios and Dr. Perez return, they can decide whether we want to wait until complete steri lization of the CSF and put an Ommaya reservoir back in her, or whether she can be treated with seria l LPs and discharged from the hospital. In anticipation of that discussion I am going to start clamp ing the drain today. We will get a CAT scan this morning and one on Thursday to ensure the ventricular system is not developing hydrocephalus.
--- NOTE | 2017-01-23 07:57 | PRG ---
DATE OF SERVICE: 01/23/2017 SUBJECTIVE: Ms. Gagnon is a 36-year-old female who was found in her ICU room this morning. She is status post 2 days out from an Ommaya reservoir resection and placement of the EVD. Yesterday, CSF c ultures were taken that showed was hazy, 135 white blood cell count, 377 red blood cell count and seg mented neutrophils were 91. CSF total protein is 77. I have collected CSF samples again this selma oliveros and sent them to the lab to be analyzed. Overnight, she slept well and there were no acute events. Her vital signs have been stable and there are no new neurologic deficits on exam. If there are an y further questions, please feel free to contact Neurosurgery.
[2017-01-23 08:11] LABS: CSF, Glucose 64 mg/dl (40-70)
[2017-01-23 08:47] LABS: Number Cells Counted-Fluids 100
[2017-01-23 08:55] LABS: Vancomycin, Random 17.5 ug/mL (See Comment)
[2017-01-23] MEDS: Rifampin 300 MG CAP PO SCH ×3 (08:59→20:02)
[2017-01-23] MEDS: Dextrose 5 %-0.45 % NaCl 1,000 ML IV SCH ×2 (09:04→18:10)
--- NOTE | 2017-01-23 10:20 | CT ---
HEAD CT WITHOUT CONTRAST: Date: 01/23/17 COMPARISON: 01/05/17. HISTORY: Metastatic breast cancer. TECHNIQUE: Serial axial CT imaging is obtained at 5 mm intervals from vertex through skull base without contrast . FINDINGS: Imaged paranasal sinuses and mastoid air cells are well aerated. There is a ventriculostomy tube inserted via a right frontal approach. The distal tip of the ventricu lostomy tube extends beyond the ventricular system, extending into the brain parenchyma just inferior and posterior to the superior aspect of the third ventricle, just inferior and lateral to the forame n of [place] on the left. No ventricular enlargement. No intracranial hemorrhage, midline shift, or mas s effect. The crowding of the sulci and generalized loss of ramsey-white differentiation noted on the 03/07/16 examination has resolved. IMPRESSION: Ventriculostomy tube as above. No intracranial hemorrhage is seen. POS: CARLOS
--- NOTE | 2017-01-23 12:32 | PDOC.PN ---
- Subjective Encounter Start Date: 01/23/17 Encounter Start Time: 12:29 Patient seen at bedside. No overnight events, no new complaints. - Objective Resuscitation Status: Resuscitation Status FULL:Full Resuscitation MAR Reviewed: Yes Vital Signs & Weight: Vital Signs (12 hours) Temp 01/23/17 04:00 99.7 F H Weight Weight 137 lb 4 oz Most Recent Monitor Data Heart Rate from ECG 99 NIBP 114/84 NIBP BP-Mean 92 Respiration from ECG 18 SpO2 82 I&O: 01/22/17 01/23/17 01/24/17 06:59 06:59 06:59 Intake Total 1265 4025 Output Total 1530 2696 Balance -265 1329 Result Diagrams: 01/22/17 04:09 01/22/17 04:09 Phys Exam - Physical Examination Constitutional: NAD HEENT: moist MMs EVD in place Neck: no JVD Respiratory: clear to auscultation bilateral Cardiovascular: RRR Gastrointestinal: soft Musculoskeletal: pulses present Neurological: moves all 4 limbs Psychiatric: normal affect, A&O x 3 Skin: no rash Dx/Plan (1) Headache Code(s): R51 - HEADACHE Status: Resolved (2) Fever Code(s): R50.9 - FEVER, UNSPECIFIED Status: Acute (3) Malfunction of Ommaya reservoir Code(s): T85.09XA - MECH COMPL OF VENTRICULAR INTRACRANIAL SHUNT, INIT Status : Acute Qualifiers: Encounter type: subsequent encounter Qualified Code(s): T85.09XD - Other mechanical complication of ventricular intracranial (communicating) shunt, subsequent encounter - Plan cont current plan of care, plan discussed w/ family, continue antibiotics, DVT proph w/SCDs * Continue with Rifampin/Vancomycin. * Monitor CSF. Will need to be sterile before any further intervention (Repeat Ommaya shunt placement vs serial LPs for therapy). Decision will likely be made Thursday once Dr. Perez returns * CT in AM to rule out hydrocephalus * Supportive care
[2017-01-23] MEDS: Vancomycin HCl 1 GM in Premix Bag 1 BAG IVPB SCH ×2 (16:36→22:03)
--- NOTE | 2017-01-23 17:16 | PRG ---
DATE OF SERVICE: 01/23/2017 SUBJECTIVE: No headaches, no visual symptoms, sore throat, odynophagia or dysphagia. No abdominal p ain or diarrhea. Patient has declined placement of a new Ommaya reservoir at least for the time celine oliveros and would rather have the chemotherapy administered through lumbar punctures. PHYSICAL EXAMINATION: VITAL SIGNS: T-max 100.5, blood pressure 107/73, pulse 98. GENERAL: Awake, alert, and oriented. HEENT: Ocular movements are conjugate. Pupils are equal and reactive. LUNGS: Clear. HEART: S1 and S2 with regular rate. ABDOMEN: Soft. EXTREMITIES: Moves all extremities equally. LABORATORY DATA: White cell count 4.6, hemoglobin 10.2, platelets 200, creatinine 0.79. Vancomycin and CSF levels are pending. Latest trough 15.6. 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 DISCUSSION: Patient to continue on vancomycin. We will increase dosage to 1 gram q.6, target trough between 20 and 30 mcg per mL. Continue rifampin. Patient will need 2-3 weeks therapy to resolve th is CSF infection.
[2017-01-23] MEDS ORDERED: Vancomycin HCl 1 GM in Premix Bag 1 BAG IVPB SCH (18:00)
[2017-01-24] MEDS: Vancomycin HCl 1 GM in Premix Bag 1 BAG IVPB SCH ×4 (03:46→21:49)
[2017-01-24] MEDS: Dextrose 5 %-0.45 % NaCl 1,000 ML IV SCH ×3 (06:09→20:11)
[2017-01-24] MEDS: Rifampin 300 MG CAP PO SCH ×3 (08:50→20:02)
[2017-01-24 09:33] LABS: Vancomycin, Trough 25.8 ug/mL
[2017-01-24 09:40] LABS: CSF, Glucose 62 mg/dl (40-70)
--- NOTE | 2017-01-24 09:59 | PRG ---
DATE OF SERVICE: 01/24/2017 NEUROSURGERY PROGRESS NOTE SUBJECTIVE: Ms. Gagnon remains in the ICU. She has external ventricular drain, which we clamped ye sterday. A baseline CT scan with the drain functioning from early yesterday morning and we have a scan schedul ed for tomorrow morning after 48 hours of draining. The CSF indices seemed to be clearing. Cultures are pending. On examination, Ms. Gagnon is still, awake, alert, and oriented. She has no neurological deficits. She is bored of being in the ICU. Plan is to continue to sample CSF today and tomorrow and anticipate return of Dr. Perez and Dr. Longo over on Thursday to decide whether serial LPs or another Ommaya reservoir is the best course of action.
[2017-01-24 10:58] LABS: Number Cells Counted-Fluids 100
--- NOTE | 2017-01-24 11:00 | PRG ---
DATE OF SERVICE: 01/24/2017 Ms. Gagnon is 36-year-old female who I saw in the ICU this morning. Her EVD is in place and has bee n clamped. She has been doing well overnight and there have been no acute events overnight. Her vital signs have been stable. Her ICP has been ranging from 6-23 overnight. She has no new neur ologic deficits on exam this morning. His CSF culture from shows no organisms seen, many white blood cells and red blood cells present. The culture from 01/23/2017 shows white blood cells seen an d no organisms seen. Dr. Conley, Infectious Disease, had seen her yesterday and recommended to incre ase dosage of vancomycin to 1 gram q.6 hour target between 20 and 30 mcg per mL. Also continue rifam pin and he suggested the patient will need to 3 weeks of therapy to resolve CSF infection. We will c jonelleue to watch his CSF results as I sent Gram stain culture and sensitivity, protein, glucose and c ell count this morning with CSF sample. If there are any further questions, please feel free to cont act Neurosurgery.
--- NOTE | 2017-01-24 11:26 | PDOC.PN ---
- Subjective Encounter Start Date: 01/24/17 Encounter Start Time: 11:00 Subjective: feels better, no headache, neck stiffness or fever - Objective Resuscitation Status: Resuscitation Status FULL:Full Resuscitation MAR Reviewed: Yes Vital Signs & Weight: Vital Signs (12 hours) Temp 01/24/17 08:00 99 F 01/24/17 04:00 99.7 F H 01/24/17 00:00 99.5 F Weight Weight 142 lb 13.753 oz Most Recent Monitor Data Heart Rate from ECG 84 NIBP 117/76 NIBP BP-Mean 85 Respiration from ECG 15 SpO2 100 I&O: 01/23/17 01/24/17 01/25/17 06:59 06:59 06:59 Intake Total 4026 3505 450 Output Total 2764 4101 750 Balance 1329 -1239 -300 Result Diagrams: 01/22/17 04:09 01/22/17 04:09 Phys Exam - Physical Examination HEENT: PERRLA, moist MMs Neck: no JVD, supple Respiratory: no wheezing, no rales Cardiovascular: RRR, no significant murmur Gastrointestinal: soft, non-tender, positive bowel sounds Musculoskeletal: no edema, pulses present Neurological: non-focal, moves all 4 limbs Psychiatric: A&O x 3 Dx/Plan (1) s/p removal of ommaya reservoir Status: Acute (2) Breast cancer Status: Chronic Comment: with metastases to meninges (3) Carcinomatous meningitis Code(s): C79.49 - SECONDARY MALIGNANT NEOPLASM OF OTH PARTS OF NERVOUS SYSTEM; C80.1 - MALIGNANT (PRIMARY) NEOPLASM, UNSPECIFIED Status: Acute - Plan is on vanc and rifampin -: has ext vent drain with clamping per nsx -: reg diet -: currently all her initial symptoms have resolved * . Review of Systems - Medications/Allergies Allergies/Adverse Reactions: Allergies Allergy/AdvReac Type Severity Reaction Status Date / Time No Known Allergies Allergy Verified 01/21/17 14:41 Medications: Current Medications Acetaminophen (Tylenol) 650 mg PO Q4H PRN PRN Reason: Headache/Fever or Pain Hydrocodone Bitart/Acetaminophen ([place] 10/325) 1 tab PO Q4H PRN PRN Reason: Mild-Moderate Pain (1-5) Hydrocodone Bitart/Acetaminophen ([place] 10/325) 2 tab PO Q4H PRN PRN Reason: Moderate to Severe Pain (6-10) Al Hydroxide/Mg Hydroxide (Maalox) 30 ml PO Q6H PRN PRN Reason: Heartburn or Indigestion Bisacodyl (Dulcolax) 10 mg PO DAILYPRN PRN PRN Reason: Constipation Calcium Carbonate (Tums) 1,000 mg PO Q4H PRN PRN Reason: Heartburn or Indigestion Dextrose/Sodium Chloride (D5 1/2 Ns) 1,000 mls @ 100 mls/hr IV .Q10H [facility] Last Admin: 01/24/17 11:17 Dose: 1,000 mls Ondansetron HCl 10 mg/ Sodium (Chloride) 55 mls @ 220 mls/hr IVPB Q4H PRN PRN Reason: Nausea/Vomiting Vancomycin HCl 1 gm/ Device 200 mls @ 200 mls/hr IVPB 0400,1000,1600,2200 [facility] Last Admin: 01/24/17 08:50 Dose: 200 mls Rifampin (Rifadin) 300 mg PO TID [facility] Last Admin: 01/24/17 08:50 Dose: 300 mg Senna (Senokot) 2 tab PO HSPRN PRN PRN Reason: Constipation Sodium Chloride (Flush - Normal Saline) 10 ml IVF Q12HR [facility] Last Admin: 01/24/17 08:50 Dose: Not Given Sodium Chloride (Flush - Normal Saline) 10 ml IVF PRN PRN PRN Reason: Saline Flush
[2017-01-25] MEDS: Dextrose 5 %-0.45 % NaCl 1,000 ML IV SCH (03:56)
[2017-01-25] MEDS: Vancomycin HCl 1 GM in Premix Bag 1 BAG IVPB SCH ×2 (03:56→10:10)
[2017-01-25 05:44] LABS: Mean Platelet Volume 6.4 fL (7.4-10.4); Neutrophil 74 % (42-75); Red Blood Cell (RBC) Count 3.64 mill/uL (4.20-5.40); White Blood Cell (WBC) Count 1.9 thou/uL (4.8-10.8)
[2017-01-25 05:48] LABS: Chloride 110 mmol/L (98-107)
[2017-01-25 05:49] LABS: Calcium 8.8 mg/dL (7.8-10.44)
[2017-01-25 05:50] LABS: Globulin 3.4 g/dL (2.4-3.5); Protein, Total 6.5 g/dL (6.0-8.3)
[2017-01-25 05:51] LABS: Bilirubin, Total 1.4 mg/dL (0.2-1.2); Carbon Dioxide 19 mmol/L (22-29)
[2017-01-25 05:53] LABS: Calc. Creatinine Clearance 107 mL/min (70-130); Estimated GFR-MDRD Greater than 90
[2017-01-25 05:54] LABS: BUN (Urea Nitrogen) Less than 4 mg/dL (7.0-18.7)
[2017-01-25 05:55] LABS: AST (SGOT) 23 U/L (5-34)
[2017-01-25 05:59] LABS: Alkaline Phosphatase 60 U/L (40-150)
[2017-01-25 06:02] LABS: ALT (SGPT) 22 U/L (8-55)
[2017-01-25 07:19] LABS: Anion Gap 14 mmol/L (10-20)
[2017-01-25 09:09] LABS: CSF, Glucose 64 mg/dl (40-70)
[2017-01-25 09:34] LABS: Number Cells Counted-Fluids 100
[2017-01-25] MEDS: Rifampin 300 MG CAP PO SCH ×3 (10:11→19:58)
--- NOTE | 2017-01-25 10:25 | PRG ---
DATE OF SERVICE: 01/25/2017 SUBJECTIVE: Ms. Gagnon is a 36-year-old female who I saw on her room this morning. This morning I a gain took CSF culture, Gram stain, cell count, glucose, and protein and sent to lab. Her white blood cell count is significantly improving. There are no new neurologic deficits on exam. She is quite bored with being in the ICU. She will continue to take CSF cultures to clear her infection through t malvin and tomorrow and then Dr. Perez and Dr. Larios can decide whether they want to put in another Ommaya reservoir or give treatments through lumbar puncture. Ms. Gagnon's pain is under control an d she is doing well postoperatively. There have been no acute events overnight and her vital signs h ave been stable. Her ICPs have been ranging between 1 and 17 throughout the past 12 hours. We will continue to analyze her CSF and clear her infection. If there are any further questions, please feel free to contact Neurosurgery.
--- NOTE | 2017-01-25 10:53 | PDOC.PN ---
- Subjective Encounter Start Date: 01/25/17 Encounter Start Time: 07:40 Subjective: no headache, neck pain or any weakness -: eating better - Objective Resuscitation Status: Resuscitation Status FULL:Full Resuscitation MAR Reviewed: Yes Vital Signs & Weight: Vital Signs (12 hours) Temp 01/25/17 07:00 97.5 F L 01/25/17 04:00 99.8 F H 01/25/17 00:00 99.4 F Weight Weight 141 lb 1.533 oz Most Recent Monitor Data Heart Rate from ECG 104 NIBP 124/75 NIBP BP-Mean 90 Respiration from ECG 15 SpO2 100 I&O: 01/24/17 01/25/17 01/26/17 06:59 06:59 06:59 Intake Total 3505 2728 Output Total 0180 2650 500 Balance -1239 78 -500 Result Diagrams: 01/25/17 05:02 01/25/17 05:02 Phys Exam - Physical Examination HEENT: PERRLA, moist MMs, sclera anicteric Neck: no JVD, supple Respiratory: no wheezing, no rales Cardiovascular: RRR, no significant murmur Gastrointestinal: soft, non-tender, positive bowel sounds Musculoskeletal: no edema, pulses present Neurological: non-focal, moves all 4 limbs Psychiatric: A&O x 3 Dx/Plan (1) s/p removal of ommaya reservoir Status: Acute (2) Breast cancer Status: Chronic Comment: with metastases to meninges (3) Carcinomatous meningitis Code(s): C79.49 - SECONDARY MALIGNANT NEOPLASM OF OTH PARTS OF NERVOUS SYSTEM; C80.1 - MALIGNANT (PRIMARY) NEOPLASM, UNSPECIFIED Status: Acute - Plan wbc is down to 1.9 this am -: clinically is feeling well -: is on vanc and rifampin -: has external csf drain -: neurologically intact * . Review of Systems - Medications/Allergies Allergies/Adverse Reactions: Allergies Allergy/AdvReac Type Severity Reaction Status Date / Time No Known Allergies Allergy Verified 01/21/17 14:41 Medications: Current Medications Acetaminophen (Tylenol) 650 mg PO Q4H PRN PRN Reason: Headache/Fever or Pain Hydrocodone Bitart/Acetaminophen ([place] 10/325) 1 tab PO Q4H PRN PRN Reason: Mild-Moderate Pain (1-5) Hydrocodone Bitart/Acetaminophen ([place] 10/325) 2 tab PO Q4H PRN PRN Reason: Moderate to Severe Pain (6-10) Al Hydroxide/Mg Hydroxide (Maalox) 30 ml PO Q6H PRN PRN Reason: Heartburn or Indigestion Bisacodyl (Dulcolax) 10 mg PO DAILYPRN PRN PRN Reason: Constipation Calcium Carbonate (Tums) 1,000 mg PO Q4H PRN PRN Reason: Heartburn or Indigestion Ondansetron HCl 10 mg/ Sodium (Chloride) 55 mls @ 220 mls/hr IVPB Q4H PRN PRN Reason: Nausea/Vomiting Vancomycin HCl 1 gm/ Device 200 mls @ 200 mls/hr IVPB 0400,1000,1600,2200 [facility] Last Admin: 01/25/17 10:10 Dose: 200 mls Dextrose/Sodium Chloride (D5 1/2 Ns) 1,000 mls @ 50 mls/hr IV .Q20H [facility] Last Admin: 01/25/17 03:56 Dose: 1,000 mls Rifampin (Rifadin) 300 mg PO TID [facility] Last Admin: 01/25/17 10:11 Dose: 300 mg Senna (Senokot) 2 tab PO HSPRN PRN PRN Reason: Constipation Sodium Chloride (Flush - Normal Saline) 10 ml IVF Q12HR [facility] Last Admin: 01/25/17 09:25 Dose: Not Given Sodium Chloride (Flush - Normal Saline) 10 ml IVF PRN PRN PRN Reason: Saline Flush
--- NOTE | 2017-01-25 13:15 | CT ---
PRELIMINARY REPORT/[facility]/EMERGENCY AFTER HOURS PROCEDURE: EXAM: CT Head Without Intravenous Contrast EXAM DATE/TIME: Exam ordered 01/25/2017 4:08 AM CLINICAL HISTORY: 36 years old, female; Condition or disease; Other: Ventriculitis; Patient HX: F/u ventriculitis TECHNIQUE: Axial computed tomography images of the head/brain without intravenous contrast. COMPARISON: CT Brain WO Con 2017-01-23 07:52 FINDINGS: Brain: Unremarkable. No hemorrhage. No significant white matter disease. No edema. Ventricles: Frontal shunt catheter tip terminates in the inferior left basal ganglia region, left lat eral to the third ventricle and inferior to the body of the left lateral ventricle, stable compared t o the prior study. Ventricles are stable compared to the prior study. Bones/joints: Unremarkable. No acute fracture. Soft tissues: Unremarkable. Sinuses: Unremarkable as visualized. No acute sinusitis. Mastoid air cells: Unremarkable as visualized. No mastoid effusion. Other findings: No edema. No hemorrhage. IMPRESSION: Stable shunt catheter and stable ventricles. Thank you for allowing us to participate in the care of your patient. Dictated and Authenticated by: Panda Felix MD 01/25/2017 4:19 AM Central Time ([place] & [place]) FINAL REPORT EMERGENT AFTER HOURS CT HEAD WITHOUT IV CONTRAST: DATE: 01/25/17. HISTORY: Ventriculitis, followup ventricular size. COMPARISON: 01/23/17. IMPRESSION: 1. A ventriculostomy tube is again noted in place entering via a right frontal approach with the cat heter extending across the midline at the level of the anterior horns of the lateral ventricles and a gain terminating just lateral to the level of the 3rd ventricle. There is no evidence of hydrocephal us. The ventricles are stable in appearance without hydrocephalus present. 2. No intraparenchymal or extraaxial hemorrhage is seen, and there is no acute infarction. 3. CT head is stable from prior study. 4. Findings are in agreement with the preliminary report by ALFRED. POS: KENNA
--- NOTE | 2017-01-25 13:30 | PRG ---
DATE OF SERVICE: 01/25/2017 NEUROSURGERY PROGRESS NOTE SUBJECTIVE: Ms. Gagnon continues to recover from removal of her Ommaya reservoir which was colonize d with Staph epidermidis. CSF has been sent daily and the indices seem to be improving. Ms. Gagnon has no symptoms currently. Over the last 24 hours, 10 mL of CSF has been removed. Over the previou s 24 hours a similar 10 mL were removed. That is 20 mL in [address] scan today is no differe nt from her CT scan 2 days ago when the drain was open at 10 cm. The plan for Ms. Gagnon is for Dr. Perez and Dr. Larios to discuss her case tomorrow. Her ventri cular system is not dilating with clamping of the drain and therefore, if she does not well, another Ommaya reservoir placed, her drain can be removed tomorrow. One option is never to place an Ommaya a gain and treat her with an LP for intrathecal chemotherapy should she need it in the future. The sec ond option would be to sterilize her CSF with 1 month of IV or oral antibiotics and bring her back fo r a deferred Ommaya placement and the third option would be to keep her in the hospital with the drai n in place until 3 serial cultures are all negative at 72 hours and then plan an Ommaya placement eit her through the same site or into the left frontal horn and through a new trajectory. In talking wit h her, she seems to favor never having an Ommaya again. I will later discuss with her primary team.
[2017-01-25] MEDS ORDERED: Lorazepam 1 MG TAB PO PRN (14:13)
--- NOTE | 2017-01-25 18:39 | PRG ---
DATE OF SERVICE: 01/25/2017 SUBJECTIVE: No headaches. Vision is okay. No sore throat or vomiting. No respiratory symptoms. L oss drive, peripheral IV access, could not access her port . No abdominal pain, no diarrhea. OBJECTIVE: VITAL SIGNS: T-max 100.5 yesterday at 8:00 p.m. She has been afebrile today. Other vital signs are normal. Awake, alert, oriented. HEENT: Ocular movements are conjugate. Pupils are equal and reactive. NECK: Supple. LUNGS: Symmetric clear breath sounds. CARDIOVASCULAR: S1, S2, regular rate, mild to moderate swelling of the right upper extremity. ABDOMEN: Soft and not distended. EXTREMITIES: Moves all extremities equally. LABORATORY DATA: White cell count 1.9, hemoglobin 11.5, platelets 204, 74% neutrophils. Creatinine 0.76, bilirubin 1.4, albumin 3.1. Vancomycin CSF level pending. Vancomycin trough 25.8 on 01/24. P reliminary CSF cultures still pending. 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 Ommaya reservoir in fection secondary to coagulase negative Staphylococcus, status post removal, loss of intravenous acce ss. We will write for a PICC line insertion and switch her to linezolid plus rifampin in the meantim e eventually transitioned back to oral and IV vancomycin plus oral rifampin.
[2017-01-25] MEDS: Linezolid 600 MG TAB PO SCH (19:57)
[2017-01-26 06:22] LABS: CSF, Glucose 64 mg/dl (40-70)
--- NOTE | 2017-01-26 06:44 | PRG ---
DATE OF SERVICE: 01/26/2017 Ms. Gagnon is a 36-year-old female who I saw in her room this morning. I took another sample of CSF and sent to the lab for Gram stain, culture, glucose, protein and cell count. Her white blood cell count in the CSF yesterday was 126, red blood cell count was 16 and segmented neutrophils of 61. Dr. Conley saw her yesterday and recommended putting in a PICC line. He also recommended switching to Li nezolid plus rifampin in the meantime, eventually transitioning back to oral and IV vancomycin plus o ral rifampin. Vital signs overnight have been stable and there are no new neurologic deficits on exa m. If there are any further questions this morning, please feel free to contact Neurosurgery.
[2017-01-26 06:55] LABS: Number Cells Counted-Fluids 100
[2017-01-26] MEDS: Rifampin 300 MG CAP PO SCH ×3 (08:44→20:35)
[2017-01-26] MEDS: Linezolid 600 MG TAB PO SCH (08:45)
[2017-01-26] MEDS: Dextrose 5 %-0.45 % NaCl 1,000 ML IV SCH (08:46)
--- NOTE | 2017-01-26 10:26 | PDOC.PN ---
- Subjective Encounter Start Date: 01/26/17 Encounter Start Time: 09:40 Subjective: no headache or weakness -: feels better - Objective Resuscitation Status: Resuscitation Status FULL:Full Resuscitation MAR Reviewed: Yes Vital Signs & Weight: Vital Signs (12 hours) Temp Pulse Resp 01/26/17 08:00 97.9 F 85 16 01/26/17 03:00 98.7 F 01/25/17 23:00 98.7 F Weight Weight 138 lb 10.732 oz Most Recent Monitor Data Heart Rate from ECG 85 NIBP 128/91 NIBP BP-Mean 101 Respiration from ECG 16 SpO2 100 I&O: 01/25/17 01/26/17 01/27/17 06:59 06:59 06:59 Intake Total 2728 1153 300 Output Total 2650 1400 0 Balance 78 -247 300 Result Diagrams: 01/25/17 05:02 01/25/17 05:02 Phys Exam - Physical Examination HEENT: PERRLA, moist MMs Neck: no JVD, supple Respiratory: no wheezing, no rales Cardiovascular: RRR, no significant murmur Gastrointestinal: soft, non-tender, positive bowel sounds Musculoskeletal: no edema, pulses present Neurological: non-focal, moves all 4 limbs Psychiatric: A&O x 3 Dx/Plan (1) s/p removal of ommaya reservoir Status: Acute (2) Breast cancer Status: Chronic Qualifiers: Laterality: right Comment: with metastases to meninges (3) Carcinomatous meningitis Code(s): C79.49 - SECONDARY MALIGNANT NEOPLASM OF OTH PARTS OF NERVOUS SYSTEM; C80.1 - MALIGNANT (PRIMARY) NEOPLASM, UNSPECIFIED Status: Acute - Plan is on vanc and rifampin, for picc line today for iv access -: to continue zyvox until picc line is placed -: EVD in place, removal per NSX advice * . Review of Systems - Medications/Allergies Allergies/Adverse Reactions: Allergies Allergy/AdvReac Type Severity Reaction Status Date / Time No Known Allergies Allergy Verified 01/21/17 14:41 Medications: Current Medications Acetaminophen (Tylenol) 650 mg PO Q4H PRN PRN Reason: Headache/Fever or Pain Hydrocodone Bitart/Acetaminophen ([place] 10/325) 1 tab PO Q4H PRN PRN Reason: Mild-Moderate Pain (1-5) Hydrocodone Bitart/Acetaminophen ([place] 10/325) 2 tab PO Q4H PRN PRN Reason: Moderate to Severe Pain (6-10) Al Hydroxide/Mg Hydroxide (Maalox) 30 ml PO Q6H PRN PRN Reason: Heartburn or Indigestion Bisacodyl (Dulcolax) 10 mg PO DAILYPRN PRN PRN Reason: Constipation Calcium Carbonate (Tums) 1,000 mg PO Q4H PRN PRN Reason: Heartburn or Indigestion Ondansetron HCl 10 mg/ Sodium (Chloride) 55 mls @ 220 mls/hr IVPB Q4H PRN PRN Reason: Nausea/Vomiting Dextrose/Sodium Chloride (D5 1/2 Ns) 1,000 mls @ 50 mls/hr IV .Q20H [facility] Last Admin: 01/26/17 08:46 Dose: Not Given Linezolid (Zyvox) 600 mg PO Q12HR [facility] Last Admin: 01/26/17 08:45 Dose: 600 mg Lorazepam (Ativan) 1 mg PO Q4H PRN PRN Reason: Anxiety/Agitation Rifampin (Rifadin) 300 mg PO TID [facility] Last Admin: 01/26/17 08:44 Dose: 300 mg Senna (Senokot) 2 tab PO HSPRN PRN PRN Reason: Constipation Sodium Chloride (Flush - Normal Saline) 10 ml IVF Q12HR [facility] Last Admin: 01/26/17 08:46 Dose: Not Given Sodium Chloride (Flush - Normal Saline) 10 ml IVF PRN PRN PRN Reason: Saline Flush
--- NOTE | 2017-01-26 13:46 | PRG ---
DATE OF SERVICE: 01/26/2017 Arnoldo Ferrer PA-C dictating for Dr. Justice Larios. A 15 minutes subsequent patient evaluation which greater than 50% of the exam was spent in counseling and coordinating patient's care and remainder of the exam was spent in review of patient's medical r ecords and formulation of treatment plan. SUBJECTIVE: Ms. Gagnon is now hospital day #5, who presenting with fever and signs of clinical meni ngitis. Patient has remained on antibiotics including Zyvox and rifampin. Infectious Disease is hel ping to follow the patient and she is scheduled for PICC line placement later today. In regards to h er neurologic status, she has at neurologic baseline. Her GCS currently is 15. She has full strengt h in the bilateral upper and bilateral lower extremities. She is cheerful through the exam and state s she is frustrated, but continuing to be in the hospital. Her EVD has remained clamped over the pas t 2-3 days and only drained for CSF sampling, which were sent earlier this morning by Dr. Kenny Deal. Her ICP has have remained less than 10 for the past 48 hours. I did remove the EVD today and the p atient tolerated the procedure well. Two sonya were placed and sutures are present where the Ommay a reservoir was removed. We discussed again the risks and benefits of replacing an Ommaya reservoir and at this time, the patient states that she would like to avoid replacement of the Ommaya given all the risks. She will continue with antibiotics as per Infectious Disease and Hospitalist are continu ing to remain a primary provider. At this time, we will continue to follow the patient. She remains again at neurologic baseline. From our standpoint, she is stable to transfer to the medical floor a nd again her neurologic status has remained good. Please call with any changes or questions in regar ds to patient's neurologic status.
[2017-01-26] MEDS ORDERED: VANCOMYCIN IVPB PRN (14:54)
[2017-01-26] MEDS: Vancomycin HCl 1.25 GM in Sodium Chloride 0.9% 250 ML 250 ML IVPB SCH ×2 (16:26→23:59)
--- NOTE | 2017-01-26 20:01 | SPC ---
ULTRASOUND GUIDED LEFT UPPER EXTREMITY PICC LINE: Date: 01/26/17 COMPARISON: None. FINDINGS: Technically successful left upper extremity PICC line placement with ultrasound guidance. Distal tip is in the SVC/right atrial junction. Dual lumen 5 Georgian catheter flushes and aspirates without diffi culty. Trim length is 45 cm. TECHNIQUE: Consent obtained to performed a left upper extremity PICC line. Left arm was prepped and draped in th e sterile fashion. 1% lidocaine, buffered with sodium bicarbonate, was used for local anesthesia. Und er ultrasound guidance, micropuncture needle was used to cannulate the basilic vein. A 0.018 guidewir e was advanced through the needle to the level of the superior vena cava. Tract was dilated. Dual lum en 5 Georgian catheter was advanced over the wire. Wire was removed. Both lumen flush and aspirate with out difficulty. Trim length is 45 cm. IMPRESSION: Technically successful left upper extremity PICC line placement with ultrasound guidance. POS: [facility]
[2017-01-27] MEDS: Vancomycin HCl 1.25 GM in Sodium Chloride 0.9% 250 ML 250 ML IVPB SCH (08:14)
[2017-01-27] MEDS: Rifampin 300 MG CAP PO SCH (08:14)
--- NOTE | 2017-01-27 09:49 | PRG ---
DATE OF SERVICE: 01/27/2017 Ms. Gagnon was readmitted last Thursday for progression of meningitis. She was readmitted for meni ngitis and colonization of her Ommaya reservoir. The Ommaya reservoir was removed by my colleague, Ana Munoz and an external ventricular drain placed. Her CSF on multiple draws has not yielded any further growth, most recently on 01/26/2017. ASSESSMENT: She remains leukopenic with a white blood cell count of 1.9. From a vital sign standpoi nt, she has been afebrile at least for the last 72 hours. This morning she really has no complaints. She denies any meningitic symptoms. She is neurologically intact. It appears over the last few da ys she has not been interested replacement of the Ommaya. Any replacement would have to be in my opi nion in 4-6 weeks to even consider it to allow for her cerebrospinal fluid to adequately clear. Perezjahaira armstrong, today she states she would like to have it replaced. My recommendation would be against replace ment. I think how quickly this one became contaminated the fact that she has a white blood cell coun t that is significantly low puts her at a substantial risk for repeat infection of the Ommaya. My re commendation would be perhaps consider lumbar infusion to avoid placement of any foreign body in the patient. I should note her right frontal and external ventricular are healing well. We will arrange for followup in our clinic to remove the sutures and sonya in approximately 2-3 weeks.
--- NOTE | 2017-01-27 16:12 | PDOC.PN ---
- Subjective Encounter Start Date: 01/27/17 Encounter Start Time: 16:10 Subjective: No complaints. No fever/LUCIANO/neck pain. PICC placed in LUE. - Objective Resuscitation Status: Resuscitation Status FULL:Full Resuscitation MAR Reviewed: Yes Vital Signs & Weight: Vital Signs (12 hours) Temp Pulse Resp BP Pulse Ox 01/27/17 11:30 98.7 F 99 16 125/82 96 01/27/17 08:00 98.3 F 99 16 100 01/27/17 07:25 98.3 F 99 16 125/89 100 Weight Weight 138 lb 10.732 oz Most Recent Monitor Data Heart Rate from ECG 80 NIBP 110/73 NIBP BP-Mean 101 Respiration from ECG 18 SpO2 100 I&O: 01/26/17 01/27/17 01/28/17 06:59 06:59 06:59 Intake Total 1153 1743 Output Total 1400 0 Balance -247 1743 Result Diagrams: 01/25/17 05:02 01/25/17 05:02 Phys Exam - Physical Examination Constitutional: NAD HEENT: moist MMs Respiratory: no wheezing, no rales, no rhonchi Cardiovascular: RRR, no significant murmur Gastrointestinal: soft, positive bowel sounds Neurological: non-focal, moves all 4 limbs Psychiatric: normal affect, A&O x 3 Dx/Plan (1) Acute bacterial meningitis Code(s): G00.9 - BACTERIAL MENINGITIS, UNSPECIFIED Status: Acute Comment: Due to infected reservoir with coag neg staph, improved after removal and antibiotics. PICC placed. Will need arrangement of antibiotics outpatient per Dr. Conley and then can d/c home. 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 Conley * . - Discharge Day Encounter end time: 16:20
[2017-01-27] MEDS: Linezolid 600 MG in Premix Bag 1 BAG IVPB SCH (20:26)
[2017-01-28 05:22] LABS: #Eosinphils 0.1 thou/uL (0.0-0.7); #Lymphocytes 0.8 thou/uL (1.20-3.40); #Monocytes 0.3 thou/uL (0.11-0.59); %Basophils 0.3 % (0.0-1.0); %Eosinophils 1.2 % (0.0-10.0); %Lymphocytes 18.7 % (21.0-51.0); %Monocytes 7.5 % (0.0-10.0); Hematocrit 30.9 % (36.0-47.0); Mean Platelet Volume 6.3 fL (7.4-10.4); Red Blood Cell (RBC) Count 3.32 mill/uL (4.20-5.40); White Blood Cell (WBC) Count 4.1 thou/uL (4.8-10.8)
[2017-01-28 05:36] LABS: Anion Gap 10 mmol/L (10-20); BUN (Urea Nitrogen) 7 mg/dL (7.0-18.7); Calc. Creatinine Clearance 63 mL/min (70-130); Carbon Dioxide 28 mmol/L (22-29); Chloride 109 mmol/L (98-107); Estimated GFR-MDRD 59
--- NOTE | 2017-01-28 07:48 | PDOC.PN ---
- Subjective Encounter Start Date: 01/28/17 Encounter Start Time: 08:00 Subjective: Patient without complaint this AM. No LUCIANO. No neck pain. No fever. - Objective Resuscitation Status: Resuscitation Status FULL:Full Resuscitation MAR Reviewed: Yes Vital Signs & Weight: Vital Signs (12 hours) Temp Pulse Resp Pulse Ox 01/27/17 20:30 99.0 F 99 16 100 Weight Weight 138 lb 10.732 oz Most Recent Monitor Data Heart Rate from ECG 80 NIBP 110/73 NIBP BP-Mean 101 Respiration from ECG 18 SpO2 100 I&O: 01/27/17 01/28/17 01/29/17 06:59 06:59 06:59 Intake Total 1743 Output Total 0 Balance 1743 Result Diagrams: 01/28/17 04:48 01/28/17 04:48 Phys Exam - Physical Examination Constitutional: NAD HEENT: moist MMs Respiratory: no wheezing, no rales, no rhonchi Cardiovascular: RRR, no significant murmur Gastrointestinal: soft, positive bowel sounds Neurological: non-focal, moves all 4 limbs Psychiatric: normal affect, A&O x 3 Dx/Plan (1) Acute bacterial meningitis Code(s): G00.9 - BACTERIAL MENINGITIS, UNSPECIFIED Status: Acute Comment: Due to infected reservoir with coag neg staph, improved after removal and antibiotics. PICC placed. Will need arrangement of antibiotics outpatient per Dr. Conley and then can d/c home. 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 Recheck in AM. Off Vanc currently. If worsens will need to consult nephrology. - Plan cont current plan of care, continue antibiotics Add IV fluids for renal failure * . - Discharge Day Encounter end time: 08:30
[2017-01-28] MEDS: Linezolid 600 MG in Premix Bag 1 BAG IVPB SCH ×2 (08:25→20:30)
[2017-01-28] MEDS ORDERED: SODIUM CHLORIDE IT SCH ×2 (09:30→09:45)
[2017-01-28] MEDS ORDERED: METHOTREXATE SODIUM IT SCH ×2 (09:30→09:45)
[2017-01-28] MEDS ORDERED: ADMIXTURE FEE IT SCH ×2 (09:30→09:45)
[2017-01-28] MEDS: Sodium Chloride 0.9% 1,000 ML IV SCH (11:41)
--- NOTE | 2017-01-28 12:01 | PRG ---
DATE OF SERVICE: 01/27/2017 SUBJECTIVE: No headaches, no visual symptoms, sore throat, odynophagia, or dysphagia. No vomiting. No respiratory symptoms or abdominal pain. PHYSICAL EXAMINATION: VITAL SIGNS: Show T-max of 99.8. She is now 98.7, blood pressure 120/84, pulse 92. GENERAL: Appears in no distress. HEENT: Ocular movements are conjugate. LUNGS: Clear. CARDIOVASCULAR: S1 and S2, regular rate. ABDOMEN: Soft. EXTREMITIES: Moves all extremities equally. LABORATORY DATA: White cell count 1.9, hemoglobin 11.5 and creatinine 0.76. The vancomycin level in the CSF, this was about 4 hours after the infusion of vancomycin was undetectable, less than 5 mcg p er mL. Follow up of spinal fluid cultures are negative thus far. 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 The vancomycin level was subtherapeutic. We will go ahead and switch her to linezolid, discontinue rifampin and vancomycin, treat for about another w lumbee or so.
--- NOTE | 2017-01-28 14:51 | RAD ---
LUMBAR PUNCTURE FOR INTRATHECAL CHEMOTHERAPY ADMINISTRATION: Date: 01/28/17 COMPARISON: None. HISTORY: Breast cancer. Brain tumor. EXPOSURE: 0.5 minutes. 323.8 mGy*cm^2. FINDINGS: Initial 2 view assistant auto center manager lumbar spine radiograph demonstrates five lumbar-type vertebral bodies. Vertebra l body height is maintained. Disc space heights are preserved. No spondylolisthesis or spondylolysis. Technically successful lumbar puncture under fluoroscopic guidance. A total of 6 mL of clear CSF was collected. The premixed 5 mL of methotrexate was administered intrathecally over 5 minutes. The patie nt tolerated the procedure well. No immediate or postprocedure complications. TECHNIQUE: Consent obtained to perform a lumbar puncture for intrathecal contrast administration. Patient's back was evaluated. The L2-3 level was deemed appropriate. Skin was prepped and draped in the sterile fas hion. 1% lidocaine, buffered with sodium bicarbonate, was used for local anesthesia. Under fluoroscop ic guidance, a 22 gauge spinal needle was advanced into the CSF space. Via a short tubing catheter, a total of 6 mL of clear CSF was collected. The tubing was removed. The syringe containing methotrexat e was directly connected to the hub of the needle. A total of 5 mL of methotrexate was administered o patti 5 minutes. The patient tolerated the procedure well. No immediate or postprocedure complications. Note, the exterior of the syringe containing the premixed methotrexate was not stable, and therefore, methotrexate was transferred to a sterile syringe before administration. IMPRESSION: Technically successful lumbar puncture. Technically successful administration of intrathecal methotre xate. POS: [facility]
[2017-01-29] MEDS: Sodium Chloride 0.9% 1,000 ML IV SCH ×2 (02:21→19:26)
[2017-01-29 05:25] LABS: #Lymphocytes 0.6 thou/uL (1.20-3.40); #Monocytes 0.3 thou/uL (0.11-0.59); #Neutrophils 2.8 thou/uL (1.40-6.50); %Basophils 0.2 % (0.0-1.0); %Eosinophils 0.9 % (0.0-10.0); %Lymphocytes 15.3 % (21.0-51.0); %Monocytes 7.9 % (0.0-10.0); Hematocrit 28.9 % (36.0-47.0); Mean Platelet Volume 6.4 fL (7.4-10.4); White Blood Cell (WBC) Count 3.6 thou/uL (4.8-10.8)
[2017-01-29 05:40] LABS: Anion Gap 9 mmol/L (10-20); BUN (Urea Nitrogen) 6 mg/dL (7.0-18.7); Calc. Creatinine Clearance 66 mL/min (70-130); Calcium 8.5 mg/dL (7.8-10.44); Carbon Dioxide 27 mmol/L (22-29); Chloride 109 mmol/L (98-107); Estimated GFR-MDRD 63
--- NOTE | 2017-01-29 07:44 | PDOC.PN ---
- Subjective Encounter Start Date: 01/29/17 Encounter Start Time: 09:30 Subjective: No complaints. No Pain. No Fever. No LUCIANO. - Objective Resuscitation Status: Resuscitation Status FULL:Full Resuscitation MAR Reviewed: Yes Vital Signs & Weight: Vital Signs (12 hours) Temp Pulse Resp BP Pulse Ox 01/29/17 07:11 98.3 F 81 18 133/86 99 Weight Weight 138 lb 10.732 oz Most Recent Monitor Data Heart Rate from ECG 80 NIBP 110/73 NIBP BP-Mean 101 Respiration from ECG 18 SpO2 100 I&O: 01/28/17 01/29/17 01/30/17 06:59 06:59 06:59 Intake Total 2966 Balance 2966 Result Diagrams: 01/29/17 05:07 01/29/17 05:07 Phys Exam - Physical Examination Constitutional: NAD HEENT: moist MMs Respiratory: no wheezing, no rales, no rhonchi, clear to auscultation bilateral Cardiovascular: RRR, no significant murmur Gastrointestinal: soft, positive bowel sounds Neurological: non-focal, moves all 4 limbs Psychiatric: normal affect, A&O x 3 Dx/Plan (1) Acute bacterial meningitis Code(s): G00.9 - BACTERIAL MENINGITIS, UNSPECIFIED Status: Acute Comment: Due to infected reservoir with coag neg staph, improved after removal and antibiotics. PICC placed. Will need arrangement of antibiotics outpatient per Dr. Conley and then can d/c home. Current switched to Linezolid for one more week of therapy. 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 Continue to monitor. (6) Hypokalemia Code(s): E87.6 - HYPOKALEMIA Status: Acute Plan: will replace orally - Plan cont current plan of care, continue antibiotics, DVT proph w/SCDs Will try to arrange O/P IV Zyvox for 7 more days, then can d/c. -: Needs repeat LP with Methotrexate on Thursday per Heme/Onc. * . - Discharge Day Encounter end time: 10:00
[2017-01-29] MEDS ORDERED: Potassium Chloride 20 MEQ TAB PO SCH (08:00)
[2017-01-29] MEDS: Linezolid 600 MG in Premix Bag 1 BAG IVPB SCH ×2 (08:53→21:17)
[2017-01-29 11:42] VITALS: BMI 23.1
--- NOTE | 2017-01-29 13:24 | PDOC.EVN ---
Event Note - Event Note Event Note: Called [phone] and gave information for prior authorization for Zyvox 600mg IV BID for 7 days. They should get back with answer within 24 hours. Sending answer to fax number [phone] (the fax machine on [facility]).
[2017-01-30 06:41] LABS: #Lymphocytes 0.9 thou/uL (1.20-3.40); #Monocytes 0.2 thou/uL (0.11-0.59); #Neutrophils 2.5 thou/uL (1.40-6.50); %Eosinophils 1.3 % (0.0-10.0); %Lymphocytes 24.4 % (21.0-51.0); %Monocytes 6.1 % (0.0-10.0); Hematocrit 27.9 % (36.0-47.0); White Blood Cell (WBC) Count 3.6 thou/uL (4.8-10.8)
[2017-01-30 07:04] LABS: Anion Gap 11 mmol/L (10-20); BUN (Urea Nitrogen) 5 mg/dL (7.0-18.7); Calc. Creatinine Clearance 67 mL/min (70-130); Calcium 8.8 mg/dL (7.8-10.44); Carbon Dioxide 26 mmol/L (22-29); Chloride 111 mmol/L (98-107); Estimated GFR-MDRD 64
[2017-01-30 07:55] VITALS: BP 153/100; TEMP 99
[2017-01-30] MEDS: Linezolid 600 MG in Premix Bag 1 BAG IVPB SCH (08:08)
--- NOTE | 2017-01-31 | DIS ---
DATE OF ADMISSION: 01/21/2017 DATE OF DISCHARGE: 01/30/2017 DIAGNOSES AT THE TIME OF ADMISSION: 1. 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 2. Metastatic breast cancer. FINAL DIAGNOSES: 1. Acute bacterial meningitis with Staphylococcus epidermidis. 2. Carcinomatosis meningitis. 3. Status post removal of Ommaya reservoir. 4. 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 5. Acute renal failure. PROCEDURES: 1. Ommaya reservoir removal. 2. LP with methotrexate infusion x1. CONSULTATIONS: Dr. Munoz and Dr. Gutierrez for Neurosurgery, Dr. Dany Conley for Infectious Dis eases Service, Dr. Justice Zuniga for Radiology, and Oncology, Dr. Perez and his team. HOSPITAL COURSE: The patient was a 36-year-old -[place] female with past medical history sig nificant for metastatic breast cancer, who has been undergoing chemotherapy as well as radiation ther apy, which both have been started during December, who presented to the hospital with fever as well a s neck pain. 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 Prior to this hospitalization, she c omplained about some headaches. She denied dizziness, blurred vision, double vision, slurred speech or weakness. She denied any chest pain, shortness of breath, cough, nausea, and vomiting. She under went removal of the Ommaya reservoir and ventriculostomy drain was placed. She had CSF sample obtain ed during this surgery and it was sent to the lab for further diagnostic workup. The patient was sta rted on vancomycin. At the time of admission, her white cell count was 8.0, hemoglobin 11.6, hematoc rit was 34.2 and platelet count was 206. The patient was seen by Dr. Conley for Infectious Diseases c onsultation, he recommended to continue vancomycin and add rifampin. CSF sample was colorless, alicia ty was clear. There was 126 of WBC, 16 of RBCs, segmented neutrophils 61, 12 of lymphocytes, and non hematological percentage was 27, total protein 66, and glucose was 64. On Gram stain, there were man y WBCs seen, RBCs were present and no organisms were seen. The patient was followed by neurosurgical team with Dr. Munoz and Dr. Gutierrez after the procedure. The CT of the brain was done without contrast, which showed a ventriculostomy tube in place and no intracranial hemorrhage was seen. The patient's white count was running low, but she wanted to have Ommaya Barnett placed again, although Neurosurgery was not recommended to that since she was in high risk to reinfection again. The patie nt was continued on vancomycin and rifampicin. Her initial symptoms had resolved and she started fee ling significantly better. The followup CT was done and it showed stable shunt catheter and stable v entricles. She was planned to have IV antibiotics at home after the discharge, so the PICC line was placed and the patient had one treatment with methotrexate done intrathecally by radiologist, Dr. Magi kerns and she had 2 radiation sessions during this hospitalization. She was seen by Dr. Shields who recom mends to wait with radiation for approximately a week or 2 to let the area drain insertion heal. The patient was seen by Oncology steamfitter supervisor by Dr. Perez, who is planning to see the patient on [facility] 2016, and has intrathecal methotrexate treatment done. She is doing well today. She does not have much complains to offer. Her vitals, blood pressure is 153/100, but yesterday was 133/86. Her temperature 99.0 and pulse is 81, respiratory rate is 16, and O2 saturation is 100%. DISCHARGE RECOMMENDATIONS: She is discharged home with recommendation to the stay on regular diet. Activity is as tolerated and she will follow up with Dr. Perez as mentioned above, and she will fo llow with Dr. Shields in the next 2 weeks to get radiation of her head. Also, she will have her follow up appointment with Dr. Gutiererz since her ventriculostomy tube was removed and the area is healing w ell. MEDICATIONS: At the time of discharge, tamoxifen 20 mg once a day, Zyvox 600 mg q.12 h x7 days, Zofr an p.r.n. as needed for nausea, vomiting, and hydrocodone/acetaminophen 1 inch q.4-6h. p.r.n. as need ed for the pain. The patient was seen and examined before she is discharged. Discharge time is more than 30 minutes.
== END 2017-01-30 17:20 | disposition home or self-care (01) | DRG 907 ==
LOC: T4-B 14:19 → CCU 18:51 → ONC 01-26 21:07
PROVIDERS: ADMIT Hospitalist; ATTEND Internal Medicine Medical Oncology
PROC: 00P Central Nervous System and Cranial Nerves, Removal (ICD-10-PCS; principal; 2017-01-21)
PROC: 009600Z Drainage of Cerebral Ventricle with Drainage Device, Open Approach (ICD-10-PCS; 2017-01-21)
PROC: 02HV33Z Insertion of Infusion Device into Superior Vena Cava, Percutaneous Approach (ICD-10-PCS; 2017-01-26)
PROC: 009U3ZZ Drainage of Spinal Canal, Percutaneous Approach (ICD-10-PCS; 2017-01-28)
PROC: 3E0R305 Introduction of Other Antineoplastic into Spinal Canal, Percutaneous Approach (ICD-10-PCS; 2017-01-28)
DX: T85.79XA Infection and inflammatory reaction due to other internal prosthetic devices, implants and grafts, initial encounter (principal); G00.3 Staphylococcal meningitis; N17.9 Acute kidney failure, unspecified; C79.49 Secondary malignant neoplasm of other parts of nervous system; B95.8 Unspecified staphylococcus as the cause of diseases classified elsewhere; Y83.8 Other surgical procedures as the cause of abnormal reaction of the patient, or of later complication, without mention of misadventure at the time of the procedure; I10 Essential (primary) hypertension; F12.10 Cannabis abuse, uncomplicated; C50.912 Malignant neoplasm of unspecified site of left female breast; Z17.0 Estrogen receptor positive status [ER+]; E87.6 Hypokalemia
CPT/HCPCS: 36415; 36569; 62270; 70450; 77412; 80048; 80053; 80202; 82248; 82945; 83615; 84100; 84157; 84550; 85025; 85060; 87070; 87077; 87186; 87205; 88112; 89051; A4216; C1751; J1642; J2001; J2020; J2704; J3010; J3370; J3490; J7050; J9250

== ENCOUNTER → 2017-02-04 | Day surgery (SDC) | payer OTHER, SELFPAY ==
[~2017-02-04] MED LIST: ADMIXTURE FEE IT SCH; FLU VACC QS2017-18 36 mo. & older 0.5 ML SYRINGE IM ONE; METHOTREXATE SODIUM IT SCH; SODIUM CHLORIDE IT SCH
[2017-02-04 11:49] VITALS: TEMP 98
[2017-02-04 11:50] VITALS: BP 125/86
--- NOTE | 2017-02-04 14:17 | RAD ---
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 TECHNIQUE: Signed informed consent obtained. Patient placed in prone TUNISIAN position on fluoroscopy table. Skin o f lower back prepped and draped in the usual sterile fashion. A 25 gauge needle was used to apply bu ffered Lidocaine superficially and deeply. A 22 gauge spinal needle was advanced into the spinal can al from a right paramedian approach, at the L2-L3 level, under brief, intermittent fluoroscopy. Upon brisk return of clear CSF, a total of 6 mL of the CSF was collected and sent to the laboratory, in t wo separate vials, for analysis, as had been requested. Next, 12 mg of methotrexate mixed with 0.9% normal saline, in 5 mL total solution, obtained from the pharmacy in a syringe, was injected intrathe aileen slowly over 3 minutes, as requested. The spinal needle was removed. The patient tolerated the procedure very well. No complications. IMPRESSION: Successful intrathecal injection of 12 mg of methotrexate. POS: [facility]
[2017-02-04 14:44] LABS: CSF, Glucose 35 mg/dl (40-70)
== END ==
LOC: RAD 10:33
PROVIDERS: ATTEND Internal Medicine Medical Oncology
DX: Z51.11 Encounter for antineoplastic chemotherapy (principal); C50.912 Malignant neoplasm of unspecified site of left female breast; C79.49 Secondary malignant neoplasm of other parts of nervous system; Z17.0 Estrogen receptor positive status [ER+]; Z90.12 Acquired absence of left breast and nipple; Z79.810 Long term (current) use of selective estrogen receptor modulators (SERMs); Z79.899 Other long term (current) drug therapy; Z98.890 Other specified postprocedural states
CPT/HCPCS: 62270; 82945; 84157; 87070; 87205; 88112; 89051; J7050; J9250

== ENCOUNTER 2017-02-12 09:59 | Day surgery (SDC) | payer OTHER, SELFPAY ==
[2017-02-11 13:47] VITALS: BMI 24.7
[2017-02-12 12:21] VITALS: BP 130/97; TEMP 99.6
--- NOTE | 2017-02-12 13:39 | RAD ---
FLUOROSCOPIC GUIDED LUMBAR PUNCTURE FLUOROSCOPIC GUIDED METHTREXATE INJECTION: CLINICAL HISTORY: Breast malignancy with metastatic disease. PROCEDURE: Informed consent was obtained. The patient was escorted to the procedural suite. Applications Specialist imaging unde r fluoroscopy was obtained of the lumbar spine to localize the site of entry into the thecal sac. A right interlaminar approach at the L3-4 level was selected. After standard sterile prepping and drap ing and topical anesthesia was achieved, a 20-gauge needle was uneventfully advanced into the thecal sac with clear colorless CSF present at the needle hub. Per ordering physician request, slightly gre ater than 10 cc of CSF was acquired and collected into 4 separate sealed sterile containers which wer e sent to the laboratory to be further analyzed. Subsequent to the lumbar puncture procedure, the provided mediation which contained 12.5 mg of methot rexate admixed with saline in a 10 cc solution, was instilled into the thecal sac. No procedural complications were present. The patient tolerated the procedure well and was transferr ed to radiology holding and was continuously monitored prior to discharge in stable condition. IMPRESSION: 1. Technically successful lumbar puncture yielding slightly greater than 10 cc clear colorless cereb rospinal fluid. Laboratory results are pending. 2. Technically successful administration of methotrexate, intrathecal administration. POS: [facility]
== END 2017-02-12 12:40 | disposition home or self-care (01) ==
LOC: RAD 09:59
PROVIDERS: ATTEND Internal Medicine Medical Oncology
PROC: 009U30Z Drainage of Spinal Canal with Drainage Device, Percutaneous Approach (ICD-10-PCS; principal; 2017-02-12)
PROC: B01BZZZ Fluoroscopy of Spinal Cord (ICD-10-PCS; principal; 2017-02-12)
PROC: 009U3ZZ Drainage of Spinal Canal, Percutaneous Approach (ICD-10-PCS; principal; 2017-02-12)
DX: C50.912 Malignant neoplasm of unspecified site of left female breast (principal); C79.49 Secondary malignant neoplasm of other parts of nervous system; Z17.0 Estrogen receptor positive status [ER+]; Z79.2 Long term (current) use of antibiotics; Z79.899 Other long term (current) drug therapy; Z95.828 Presence of other vascular implants and grafts
CPT/HCPCS: 62270; J7050; J9250

== ENCOUNTER 2017-02-20 08:50 | Day surgery (SDC) | payer OTHER, SELFPAY ==
[2017-02-20 11:01] LABS: CSF, Glucose 43 mg/dl (40-70)
[2017-02-20 12:01] VITALS: BP 131/94; TEMP 98.3
--- NOTE | 2017-02-20 14:11 | RAD ---
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 TECHNIQUE: Signed informed consent obtained. Patient placed in the prone MAORI position on the fluoroscopy table. The skin of the lower back was prepped and draped in the usual sterile fashion. A 25 gauge needle was used to apply buffered Lidocaine superficially and deeply. A 22 gauge spinal needle was advanced into the spinal canal from a right paramedian approach, at the L2-L3 level, under brief, intermitten t fluoroscopy. Upon brisk return of clear CSF, a total of 10 mL of the CSF was collected and sent to laboratory, in three separate vials, for analysis. Next, 12.5 mg of methotrexate mixed with normal saline in a 10 mL solution, obtained from the pharmacy in a syringe, was injected intrathecally, slow ly, over 3 minutes. The spinal needle was removed. The patient tolerated the procedure well. No com plications. IMPRESSION: 1. Successful lumbar puncture: 10 mL of CSF sent to laboratory. 2. Successful intrathecal injection of 12.5 mg of methotrexate. POS: [facility]
== END 2017-02-20 10:35 | disposition home or self-care (01) ==
LOC: RAD 08:50
PROVIDERS: ATTEND Internal Medicine Medical Oncology
PROC: 009U3ZZ Drainage of Spinal Canal, Percutaneous Approach (ICD-10-PCS; principal; 2017-02-20)
DX: C79.49 Secondary malignant neoplasm of other parts of nervous system (principal); C50.911 Malignant neoplasm of unspecified site of right female breast; Z79.2 Long term (current) use of antibiotics; Z79.899 Other long term (current) drug therapy; Z98.890 Other specified postprocedural states
CPT/HCPCS: 62270; 82945; 84157; 87070; 87205; 88112; 89051; J7050; J9250

== ENCOUNTER 2017-03-06 10:23 | Day surgery (SDC) | payer OTHER, SELFPAY ==
[2017-03-04 08:57] VITALS: BMI 23.3
[~2017-03-06 10:23] MED LIST changes: -ADMIXTURE FEE IT SCH; -METHOTREXATE SODIUM IT SCH; -SODIUM CHLORIDE IT SCH
[2017-03-06] MEDS ORDERED: Methotrexate Sodium/PF 12.5 MG in Sodium Chloride 0.9% 10 ML IT SCH (10:45)
[2017-03-06 11:40] VITALS: BP 137/90; TEMP 97.8
[2017-03-06 13:29] LABS: Color Of CSF Supernatant COLORLESS (Colorless); Tube # 1; Unspun CSF Color COLORLESS (Colorless)
[2017-03-06 13:34] LABS: CSF, Glucose 40 mg/dl (40-70); CSF, Protein 35 mg/dL (15-40)
[2017-03-06 13:37] LABS: CSF Source CSF; Clarity Clear (Clear); RBC Count - Manual 1 /cumm (None Seen); Tube # 3; WBC/NonHematics Count - Manual 2 /cumm (0-5)
--- NOTE | 2017-03-06 15:47 | RAD ---
FLUOROSOCPICALLY GUIDED LUMBAR PUNCTURE INTRATHECAL INJECITON OF CHEMOTHERAPEUTIC AGENT: DATE: 03/06/17. 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 TECHNIQUE: Signed informed consent obtained. Patient placed in prone EJ position on fluoroscopy table. The sk in of lower back prepped and draped in the usual sterile fashion. A 125-gauge needle was used to sully ly buffered Lidocaine superficially and deeply. A 22-gauge spinal needle was advanced into spinal ca nal from right paramedian approach at L2-3 level, under brief, intermittent fluoroscopy. Upon brisk return of clear CSF, a total of 12 mL of the CSF was collected in 3 separate vials, and sent to labor [facility] for analysis. Next, 12.5 mg of Methotrexate sodium mixed in normal saline in a total of 10 mL solution, obtained from the pharmacy in a syringe, was injected intrathecally, slowly over 3 minutes. The spinal needle was removed. The patient tolerated the procedure well. No complications. IMPRESSION: 1. Successful lumbar puncture: 12 mL of cerebrospinal fluid sent to laboratory. 2. Successful intrathecal injection of 12.5 mg of Methotrexate. POS: [facility]
== END 2017-03-06 13:10 | disposition home or self-care (01) ==
LOC: RAD 10:23
PROVIDERS: ATTEND Internal Medicine Medical Oncology
PROC: 009U3ZZ Drainage of Spinal Canal, Percutaneous Approach (ICD-10-PCS; principal; 2017-03-06)
DX: C79.49 Secondary malignant neoplasm of other parts of nervous system (principal); C50.412 Malignant neoplasm of upper-outer quadrant of left female breast; Z17.0 Estrogen receptor positive status [ER+]; Z79.899 Other long term (current) drug therapy; Z95.828 Presence of other vascular implants and grafts
CPT/HCPCS: 62270; 82945; 84157; 87070; 87205; 88112; 89051; J9250

== ENCOUNTER 2017-04-14 08:50 | Day surgery (SDC) | payer OTHER, SELFPAY ==
[2017-04-14 07:22] VITALS: BMI 25.4
[2017-04-14] MEDS ORDERED: ADMIXTURE FEE IT SCH (09:15)
[2017-04-14] MEDS ORDERED: METHOTREXATE SODIUM IT SCH (09:15)
[2017-04-14] MEDS ORDERED: SODIUM CHLORIDE IT SCH (09:15)
[2017-04-14 09:23] VITALS: BP 126/91; TEMP 97.8
[2017-04-14 11:26] LABS: Color Of CSF Supernatant COLORLESS (Colorless); Tube # 3; Unspun CSF Color COLORLESS (Colorless)
[2017-04-14 11:41] LABS: CSF, Glucose 45 mg/dl (40-70); CSF, Protein 45 mg/dL (15-40)
[2017-04-14 11:54] LABS: CSF Source CSF; Clarity Clear (Clear)
[2017-04-14 11:55] LABS: RBC Count - Manual 0 /cumm (None Seen); Tube # 3; WBC/NonHematics Count - Manual 0 /cumm (0-5)
--- NOTE | 2017-04-14 12:21 | RAD ---
FLUOROSCOPIC GUIDED LUMBAR PUNCTURE: INTRATHECAL INJECTION OF CHEMOTHERAPEUTIC AGENT: COMPARISON: Lumbar puncture with chemotherapy injection from 03/06/2017. TECHNIQUE: The patient was brought to the fluoroscopy suite. All questions were answered. Informed consent was already obtained. A time out was performed. The patient's back was prepped and draped in the normal sterile fashion and 3 mL of Lidocaine was ins tilled into the superficial and deep soft tissues for a local anesthetic. Using a 22 gauge spinal ne edle and the right paramedian approach, L2-L3 was accessed. Clear CSF was seen, and 11 mL of CSF was collected in four separate vials. Next, methotrexate was injected within the thecal sac over a tota l of 5 minutes. The spinal needle was removed, and the patient tolerated the procedure well without complications. IMPRESSION: Technically successful fluoroscopic guided lumbar puncture, as well as intrathecal methotrexate injec tion. POS: [facility]
== END 2017-04-14 11:35 | disposition home or self-care (01) ==
LOC: RAD 08:50
PROVIDERS: ATTEND Internal Medicine Medical Oncology
PROC: 00JU3ZZ Inspection of Spinal Canal, Percutaneous Approach (ICD-10-PCS; principal; 2017-04-14)
DX: Z51.11 Encounter for antineoplastic chemotherapy (principal); C50.412 Malignant neoplasm of upper-outer quadrant of left female breast; C70.1 Malignant neoplasm of spinal meninges; Z17.0 Estrogen receptor positive status [ER+]
CPT/HCPCS: 62270; 82945; 84157; 87070; 87205; 88112; 89051; J7050; J9250

== ENCOUNTER 2017-04-29 09:02 | Day surgery (SDC) | payer OTHER ==
[2017-04-28 08:27] VITALS: BMI 23.5
[~2017-04-29 09:02] MED LIST changes: +Prevnar 13-Val Conj/PF 0.5 ML SYRINGE IM ONE
[2017-04-29] MEDS ORDERED: SODIUM CHLORIDE IT SCH (09:45)
[2017-04-29] MEDS ORDERED: METHOTREXATE SODIUM IT SCH (09:45)
[2017-04-29] MEDS ORDERED: ADMIXTURE FEE IT SCH (09:45)
[2017-04-29 10:15] VITALS: BP 102/88; TEMP 97
[2017-04-29 11:17] LABS: CSF Source CSF; Clarity Clear (Clear); RBC Count - Manual 0 /cumm (None Seen); Tube # 4; WBC/NonHematics Count - Manual 2 /cumm (0-5)
[2017-04-29 11:20] LABS: Color Of CSF Supernatant COLORLESS (Colorless); Tube # 2; Unspun CSF Color COLORLESS (Colorless)
[2017-04-29 11:35] LABS: CSF, Glucose 46 mg/dl (40-70); CSF, Protein 38 mg/dL (15-40)
--- NOTE | 2017-04-29 13:22 | RAD ---
LUMBAR PUNCTURE WITH FLUOROSCOPIC GUIDANCE: INTRATHECAL CHEMOTHERAPY INJECTION UNDER FLUOROSCOPIC GUIDANCE: PROCEDURE: Informed consent was obtained. The patient was escorted to the procedural suite. The patient was pl aced in the prone position on the fluoroscopy table, and a right interlaminar approach at the L4 leve l was selected. The skin and soft tissues were prepped and draped in the standard sterile fashion. Topical anesthesia was achieved with buffered 1% Lidocaine. Using a 22 gauge needle, uneventful acce ss into the thecal sac was achieved with clear-colored CSF at the needle hub. Approximately 8 mL of CSF was drained from the patient. Specimens were placed into four separate sterile, sealed container s and sent to the laboratory for further analysis. Upon completion of the lumbar puncture, using a 22 gauge needle within the thecal sac, the provided c hemotherapeutic medication was injected with the assistance of fluoroscopic guidance into the thecal sac. There were no procedural complications. The needle was removed from the patient. IMPRESSION: 1. Technically successful fluoroscopic guided lumbar puncture, yielding clear-colored cerebrospinal fluid, with samples sent to the laboratory for analysis. 2. Technically successful intrathecal chemotherapy injection under fluoroscopic guidance. POS: [facility]
== END 2017-04-29 11:20 | disposition home or self-care (01) ==
LOC: RAD 09:02
PROVIDERS: ATTEND Internal Medicine Medical Oncology
PROC: 3E0R305 Introduction of Other Antineoplastic into Spinal Canal, Percutaneous Approach (ICD-10-PCS; principal; 2017-04-29)
PROC: 009U3ZZ Drainage of Spinal Canal, Percutaneous Approach (ICD-10-PCS; principal; 2017-04-29)
DX: C79.49 Secondary malignant neoplasm of other parts of nervous system (principal); C50.412 Malignant neoplasm of upper-outer quadrant of left female breast; Z17.0 Estrogen receptor positive status [ER+]; Z79.810 Long term (current) use of selective estrogen receptor modulators (SERMs); Z95.828 Presence of other vascular implants and grafts; Z90.12 Acquired absence of left breast and nipple
CPT/HCPCS: 62270; 82945; 84157; 87070; 87205; 88112; 89051; A4216; J9250

== ENCOUNTER 2017-05-12 11:01 | Day surgery (SDC) | payer OTHER ==
[2017-05-11 14:03] VITALS: BMI 28.7
[2017-05-12] MEDS ORDERED: Methotrexate Sodium/PF 12.5 MG in Sodium Chloride 0.9% 9.5 ML IT SCH (12:00)
[2017-05-12 12:59] VITALS: BP 162/103; TEMP 97.2
[2017-05-12 14:12] LABS: Color Of CSF Supernatant COLORLESS (Colorless); Tube # 4; Unspun CSF Color COLORLESS (Colorless)
[2017-05-12 14:16] LABS: CSF Source CSF; Clarity Clear (Clear); RBC Count - Manual 0 /cumm (None Seen); Tube # 4; WBC/NonHematics Count - Manual 4 /cumm (0-5)
[2017-05-12 14:28] LABS: CSF, Glucose 45 mg/dl (40-70); CSF, Protein 36 mg/dL (15-40)
--- NOTE | 2017-05-13 09:06 | RAD ---
LUMBAR PUNCTURE WITH FLUOROSCOPY: History: Metastatic breast cancer in need of intrathecal chemotherapy. Technique: Informed consent was obtained from the patient. The right L1-2 intralaminar space was localized using fluoroscopy. The overlying skin was prepped and draped in the usual sterile manner. A 1% lidocaine s olution was used to anesthetize the overlying soft tissues. A 22 gauge spinal needle was placed withi n the subarachnoid space. A total of 11.5 ml of clear CSF was removed. This was followed by injection of appropriate dose of methotrexate intrathecally over a 5 minute span. No complication was encounte red over the course of the exam. IMPRESSION: Successful CSF removal under fluoroscopic guidance with intrathecal injection of methotrexate. Radiation Dosimetry: 0.4 minutes of fluoroscopy and DAP of 104 mGy*cm^2. POS: [facility]
== END 2017-05-12 14:35 | disposition home or self-care (01) ==
LOC: RAD 11:01
PROVIDERS: ATTEND Internal Medicine Medical Oncology
PROC: 3E0R305 Introduction of Other Antineoplastic into Spinal Canal, Percutaneous Approach (ICD-10-PCS; principal; 2017-05-12)
DX: C50.412 Malignant neoplasm of upper-outer quadrant of left female breast (principal); C79.49 Secondary malignant neoplasm of other parts of nervous system; F12.90 Cannabis use, unspecified, uncomplicated; Z17.0 Estrogen receptor positive status [ER+]; Z79.810 Long term (current) use of selective estrogen receptor modulators (SERMs); Z90.10 Acquired absence of unspecified breast and nipple
CPT/HCPCS: 62270; 82945; 84157; 87070; 87205; 88112; 89051; J9250

== ENCOUNTER 2017-06-09 11:13 | Day surgery (SDC) | payer OTHER ==
[2017-06-09 11:21] VITALS: BMI 29.7
[2017-06-09 11:28] VITALS: TEMP 96.8
[2017-06-09 13:00] LABS: Color Of CSF Supernatant COLORLESS (Colorless); Tube # 2; Unspun CSF Color COLORLESS (Colorless)
[2017-06-09 13:05] LABS: CSF Source CSF; Clarity Clear (Clear); RBC Count - Manual 0 /cumm (None Seen); Tube # 4; WBC/NonHematics Count - Manual 1 /cumm (0-5)
[2017-06-09 13:17] LABS: CSF, Glucose 49 mg/dl (40-70); CSF, Protein 34 mg/dL (15-40)
== END 2017-06-09 13:00 | disposition home or self-care (01) ==
LOC: RAD 11:13
PROVIDERS: ATTEND Internal Medicine Medical Oncology
DX: C70.1 Malignant neoplasm of spinal meninges (principal); C70.0 Malignant neoplasm of cerebral meninges; C50.112 Malignant neoplasm of central portion of left female breast; Z17.0 Estrogen receptor positive status [ER+]; Z79.899 Other long term (current) drug therapy; Z90.12 Acquired absence of left breast and nipple
CPT/HCPCS: 82945; 84157; 87070; 87205; 88112; 89051

== ENCOUNTER → 2017-06-09 | Day surgery (SDC) | payer OTHER ==
[~2017-06-09] MED LIST changes: +ADMIXTURE FEE IT SCH; -FLU VACC QS2017-18 36 mo. & older 0.5 ML SYRINGE IM ONE; +Goserelin Acetate 3.6 MG KIT SC SCH; +METHOTREXATE SODIUM IT SCH; -Prevnar 13-Val Conj/PF 0.5 ML SYRINGE IM ONE; +SODIUM CHLORIDE IT SCH
[2017-06-09 10:45] VITALS: BP 127/58; TEMP 97.5
--- NOTE | 2017-06-09 14:06 | RAD ---
LUMBAR PUNCTURE FOR CHEMOTHERAPY ADMINISTRATION: COMPARISON: 05/12/17. EXOPSURE: 0.6 minutes, 267.5 mGy*^m2. FINDINGS: Successful lumbar puncture for intrathecal contrast administration. A total of 8 cc of clear CSF flu id was removed. The patient was administered a total of 10 cc of methotrexate over a 5-minute span. No immediate or post procedure complications. TECHNIQUE: Consent was obtained to perform a lumbar puncture for CSF collection after intrathecal chemotherapy a dministration. The patient's back was evaluated. The L2-3 level was deemed appropriate. The skin w as prepped and draped in sterile fashion. 1% Lidocaine, buffered with sodium bicarbonate, used for l ocal anesthesia. Under fluoroscopic guidance, a 22-gauge spinal needle was advanced to the CSF space . Via a short tubing catheter, a total of 8 cc of clear CSF was collected. The patient was administ ered the appropriate dose of methotrexate intrathecally over a 5-minute span. The patient tolerated the procedure well. No immediate or post procedure complication. IMPRESSION: Successful cerebrospinal fluid removal under fluoroscopy, along with intrathecal injection of methotr exate. POS: [facility]
== END ==
LOC: ONC/OP 10:28
PROVIDERS: ATTEND Internal Medicine Medical Oncology
PROC: 009U3ZZ Drainage of Spinal Canal, Percutaneous Approach (ICD-10-PCS; principal; 2017-06-09)
DX: C70.0 Malignant neoplasm of cerebral meninges (principal); C70.1 Malignant neoplasm of spinal meninges; C50.112 Malignant neoplasm of central portion of left female breast; Z17.0 Estrogen receptor positive status [ER+]; Z90.12 Acquired absence of left breast and nipple
CPT/HCPCS: 62270; 96402; A4216; J9202; J9250

== ENCOUNTER 2017-07-23 12:54 | Day surgery (SDC) | payer OTHER ==
[2017-07-23] MEDS ORDERED: Methotrexate Sodium/PF 12.5 MG in Sodium Chloride 0.9% 9.5 ML IT SCH (13:15)
[2017-07-23 14:55] VITALS: TEMP 97.6
[2017-07-23 15:39] LABS: CSF Source CSF; Clarity Clear (Clear); RBC Count - Manual 3 /cumm (None Seen); Tube # 4; WBC/NonHematics Count - Manual 0 /cumm (0-5)
[2017-07-23 15:40] LABS: Color Of CSF Supernatant COLORLESS (Colorless); Tube # 2; Unspun CSF Color COLORLESS (Colorless)
[2017-07-23 15:50] LABS: CSF, Glucose 53 mg/dl (40-70); CSF, Protein 31 mg/dL (15-40)
--- NOTE | 2017-07-23 17:29 | RAD ---
FLUOROSCOPIC GUIDED LUMBAR PUNCTURE: FLUOROSCOPIC GUIDED METHOTREXATE INJECTION: CLINICAL HISTORY: Intrathecal chemotherapy administration with a history of breast malignancy. PROCEDURE: Informed consent was obtained from the patient. The patient was escorted to the procedure suite and placed in the prone position. The patient's low back was prepped and draped in the standard sterile fashion and, using fluoroscopic guidance, an L3-L4 level approach, right interlaminar, was selected. Topical anesthesia with buffered 1% Lidocaine was performed. Subsequently, uneventful access into t he thecal sac was achieved with a 22 gauge needle. Approximately 10 mL of clear-colored CSF was drai sergio from the patient and placed into sealed sterile containers, which were sent to the laboratory for analysis. Subsequent to the lumbar puncture portion of the exam, the provided methotrexate was then administered into the thecal sac, under fluoroscopic guidance. The needle was removed. no procedural complications. IMPRESSION: Technically successful fluoroscopic guided lumbar puncture and methotrexate administration. Laboratory results are pending. POS: [facility]
== END 2017-07-23 15:00 | disposition home or self-care (01) ==
LOC: RAD 12:54
PROVIDERS: ATTEND Internal Medicine Medical Oncology
DX: Z51.11 Encounter for antineoplastic chemotherapy (principal); C50.919 Malignant neoplasm of unspecified site of unspecified female breast; Z79.810 Long term (current) use of selective estrogen receptor modulators (SERMs); Z79.899 Other long term (current) drug therapy
CPT/HCPCS: 36415; 62270; 80053; 82248; 82378; 82945; 83615; 84100; 84157; 84550; 86300; 87070; 87205; 88112; 89051; A4216; J9250

== ENCOUNTER 2017-08-25 12:12 | Day surgery (SDC) | payer OTHER ==
[2017-08-25] MEDS ORDERED: Methotrexate Sodium/PF 12.5 MG in Sodium Chloride 0.9% 9.5 ML IT SCH (12:15)
[2017-08-25 14:02] LABS: Color Of CSF Supernatant COLORLESS (Colorless); Tube # 2; Unspun CSF Color COLORLESS (Colorless)
[2017-08-25 14:10] LABS: CSF Source CSF; Clarity Clear (Clear); RBC Count - Manual 0 /cumm (None Seen); Tube # 4; WBC/NonHematics Count - Manual 0 /cumm (0-5)
[2017-08-25] MEDS ORDERED: Goserelin Acetate 3.6 MG KIT SC SCH (14:15)
[2017-08-25 14:18] LABS: CSF, Glucose 48 mg/dl (40-70); CSF, Protein 31 mg/dL (15-40)
[2017-08-25 15:33] VITALS: TEMP 98.4
--- NOTE | 2017-08-25 16:18 | RAD ---
LUMBAR PUNCTURE FOR INTRATHECAL CONTRAST ADMINISTRATION; History: Chemotherapy for metastatic cancer. Exposure: 0.5 minutes, 319 mGy*cm^2. FINDINGS: Successful lumbar puncture for acquisition of CSF and for intrathecal contrast administration. A tota l of 8 cc of clear CSF was obtained. A total of 12.5 mg of methotrexate in a 10 cc solution was admin istered over 5 minutes. No immediate or post procedure complications. Technique: Consent obtained to perform a lumbar puncture for a CSF acquisition and for intrathecal contrast admi nistration. The patient's back was evaluated. The L2-3 level was deemed appropriate. The skin was pre pped and draped in sterile fashion. 1% Lidocaine, buffered with sodium bicarbonate used for local ane sthesia. Under fluoroscopic guidance, a 22 gauge spinal needle was advanced into the CSF space. There is prompt flow of clear CSF to the hub of the needle. A total of 10 cc of CSF was collected. Subsequ ent to lumbar puncture, the provided methotrexate was administered into the thecal sac. Patient eren ated the procedure well. No immediate or post procedure complication. IMPRESSION: Successful lumbar puncture under fluoroscopic guidance. Successful administration of methotrexate int rathecally. POS: [facility]
[2017-08-25 17:22] VITALS: BP 165/86
== END 2017-08-25 17:23 | disposition home or self-care (01) ==
LOC: RAD 12:12 → ONC/OP 17:23
PROVIDERS: ATTEND Internal Medicine Medical Oncology
PROC: B01BYZZ Fluoroscopy of Spinal Cord using Other Contrast (ICD-10-PCS; principal; 2017-08-25)
PROC: 009U3ZX Drainage of Spinal Canal, Percutaneous Approach, Diagnostic (ICD-10-PCS; principal; 2017-08-25)
DX: Z51.11 Encounter for antineoplastic chemotherapy (principal); C50.112 Malignant neoplasm of central portion of left female breast; C79.32 Secondary malignant neoplasm of cerebral meninges; C79.49 Secondary malignant neoplasm of other parts of nervous system; I10 Essential (primary) hypertension; Z17.0 Estrogen receptor positive status [ER+]
CPT/HCPCS: 62270; 82945; 84157; 87070; 87205; 88112; 89051; 96402; J9202; J9250

== ENCOUNTER 2017-09-23 12:39 | Day surgery (SDC) | payer OTHER ==
[2017-09-23] MEDS ORDERED: Goserelin Acetate 3.6 MG KIT SC SCH (13:00)
[2017-09-23] MEDS ORDERED: Methotrexate Sodium/PF 12.5 MG in Sodium Chloride 0.9% 9.5 ML IT SCH (13:15)
[2017-09-23 13:18] VITALS: TEMP 98.7
--- NOTE | 2017-09-23 15:07 | RAD ---
FLUOROSCOPIC LUMBAR PUNCTURE INTRATHECAL CHEMOTHERAPY ADMINISTRATION: CLINICAL HISTORY: Breast malignancy. Chemotherapy administration. PROCEDURE: Informed consent was obtained. The patient was escorted to the procedural suite. The patient was pl aced in a prone position. The lumbar spine was localized fluoroscopically and the low back was prepp ed and draped in standard sterile fashion. Topical anesthesia with buffered 1% Lidocaine was perform ed. A right posterior interlaminar approach of the L4 level was selected. Using a 22-gauge needle, uneventful access into the thecal sac was acquired with clear colored CSF at the needle hub. Four se parate sealed sterile contains were filled with a total of 9-10 cc of clear colored CSF and sent to t laboratory for further analysis as requested by ordering physician. Subsequently, the provided ch emotherapeutic agent (Methotrexate) was administered under low pressure into the thecal sac. All devices were then removed from the patient. There were no procedural complications. Imaging was stored for documentation. The patient was discharged in stable condition after a period of observat ion in radiology holding by the radiology nurse. IMPRESSION: 1. Technically successful fluoroscopic-guided lumbar puncture. 2. Technically successful fluoroscopic-guided methotrexate administration/intrathecal chemotherapy a dministration. POS: [facility]
== END 2017-09-23 15:00 | disposition home or self-care (01) ==
LOC: ONC/OP 12:39 → RAD 15:00
PROVIDERS: ATTEND Internal Medicine Medical Oncology
PROC: 00JU3ZZ Inspection of Spinal Canal, Percutaneous Approach (ICD-10-PCS; principal; 2017-09-23)
DX: Z51.11 Encounter for antineoplastic chemotherapy (principal); C50.112 Malignant neoplasm of central portion of left female breast; C70.0 Malignant neoplasm of cerebral meninges; C70.1 Malignant neoplasm of spinal meninges; I10 Essential (primary) hypertension; D64.9 Anemia, unspecified; N17.9 Acute kidney failure, unspecified; Z17.0 Estrogen receptor positive status [ER+]
CPT/HCPCS: 36415; 62270; 80053; 82248; 82945; 83615; 84100; 84157; 84550; 87070; 87205; 88112; 89051; J7050; J9202; J9250

== ENCOUNTER → 2017-10-26 | Day surgery (SDC) | payer OTHER ==
[2017-10-23 13:36] VITALS: BMI 23.1
[~2017-10-26] MED LIST changes: -ADMIXTURE FEE IT SCH; -METHOTREXATE SODIUM IT SCH; +Methotrexate Sodium/PF 12.5 MG in Sodium Chloride 0.9% 9.5 ML IT SCH; -SODIUM CHLORIDE IT SCH
[2017-10-26 11:40] VITALS: BP 140/98; TEMP 97.2
[2017-10-26 12:45] LABS: CSF Source CSF; Clarity Clear (Clear); Tube # 4
[2017-10-26 12:47] LABS: RBC Count - Manual 0 /cumm (None Seen); WBC/NonHematics Count - Manual 0 /cumm (0-5)
[2017-10-26 13:04] LABS: CSF, Glucose 46 mg/dl (40-70); CSF, Protein 31 mg/dL (15-40)
--- NOTE | 2017-10-26 14:50 | RAD ---
FLUOROSCOPIC GUIDED LUMBAR PUNCTURE FLUOROSCOPIC GUIDED INTRATHECAL METHOTREXATE ADMINISTRATION: INDICATION: History of breast malignancy. Chemotherapy administration. PROCEDURE: Informed consent was obtained and the patient was escorted to the procedural suite and placed in a pr one position with the low back prepped and draped in the standard sterile fashion. Topical anesthesi a with buffered 1% Lidocaine was then performed. A right posterior interlaminar approach was selecte d. Uneventful access to the thecal sac was achieved at the L3-4 level. Clear colorless CSF was pres ent at the needle hub and a sample totalling 11 cc of clear colorless CSF was placed into 4 separate sealed sterile containers. After removal of CSF was completed, the patient's provided methotrexate d ose was administered under flow infusion into the thecal sac. Imaging was stored for documentation. There were no procedural complications. All devices were italo nya from the patient. The patient was observed and radiology holding prior to discharge in stable co ndition. IMPRESSION: 1. Technically successful fluoroscopic-guided lumbar puncture yielding clear colorless cerebrospinal fluid which was sent to the laboratory for further analysis. Results are pending. 2. Technically successful fluoroscopic-guided methotrexate administration/intrathecal chemotherapy a dministration. POS: [facility]
[2017-10-26 19:47] LABS: Color Of CSF Supernatant COLORLESS (Colorless); Tube # 2; Unspun CSF Color COLORLESS (Colorless)
== END ==
LOC: RAD 10:15
PROVIDERS: ATTEND Internal Medicine Medical Oncology
PROC: 00JU3ZZ Inspection of Spinal Canal, Percutaneous Approach (ICD-10-PCS; principal; 2017-10-26)
DX: Z51.11 Encounter for antineoplastic chemotherapy (principal); C79.32 Secondary malignant neoplasm of cerebral meninges; C79.49 Secondary malignant neoplasm of other parts of nervous system; C50.112 Malignant neoplasm of central portion of left female breast; Z79.810 Long term (current) use of selective estrogen receptor modulators (SERMs)
CPT/HCPCS: 36415; 62270; 80053; 82248; 82945; 83615; 84100; 84157; 84550; 87070; 87205; 88112; 89051; 96402; A4216; J9202; J9250

== ENCOUNTER 2017-11-05 11:00 | Outpatient (CLI) | payer OTHER ==
--- NOTE | 2017-11-05 15:58 | PET ---
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 Restaging PET scan. COMPARISON: No prior PET scans. TECHNIQUE: IV injection F-18 Fluorodeoxyglucose (FDG) dose: 10.1 mCi PET and attenuation-correction CT performed from skull base to proximal thighs. FINDINGS: SUV (standard uptake value) numbers given are maximum SUV's: No suspiciously abnormally hypermetabolic activity in the neck, chest, abdomen, or pelvis. No ascites . Subpectoral breast implant on the right. Post mastectomy changes in the left breast, with tissue ex pander. No focal FDG avidity identified within the cervical, thoracic, or lumbar spinal canal. IMPRESSION: Negative. No evidence of metastatic disease. HAYES Summers POS: [facility]
== END 2017-11-05 11:01 | disposition home or self-care (01) ==
LOC: PET 11:00
PROVIDERS: ATTEND Internal Medicine Medical Oncology
DX: C50.919 Malignant neoplasm of unspecified site of unspecified female breast (principal); C70.0 Malignant neoplasm of cerebral meninges; C70.1 Malignant neoplasm of spinal meninges
CPT/HCPCS: 78815; A9552

== ENCOUNTER 2017-11-08 18:32 | Inpatient (IN) | payer OTHER ==
[~2017-11-08 18:32] MED LIST changes: -Goserelin Acetate 3.6 MG KIT SC SCH; +ISOVUE-370 76%-LOCM 1 ML ONE; -Methotrexate Sodium/PF 12.5 MG in Sodium Chloride 0.9% 9.5 ML IT SCH
[2017-11-08] MEDS ORDERED: Ondansetron HCl/PF 4 MG/2 ML Vial ONE (18:38)
[2017-11-08] MEDS ORDERED: Adacel (T-DAP) 0.5 ML VIAL ONE (19:13)
[2017-11-08 19:19] LABS: #Eosinphils 0.1 thou/uL (0.0-0.7); #Lymphocytes 1.7 thou/uL (1.20-3.40); #Monocytes 0.8 thou/uL (0.11-0.59); #Neutrophils 8.2 thou/uL (1.40-6.50); %Basophils 0.3 % (0.0-1.0); %Eosinophils 0.6 % (0.0-10.0); %Monocytes 7.7 % (0.0-10.0); %Neutrophils 75.4 % (42.0-75.0); Hemoglobin 12.7 g/dL (12.0-16.0); Mean Corpuscular HGB CONC 32.7 g/dL (32.0-36.0); Mean Corpuscular Hemoglobin 30.3 pg (27.0-31.0); Mean Corpuscular Volume 92.5 fL (78.0-98.0); Mean Platelet Volume 7.8 fL (7.4-10.4); Platelet Count 187 thou/uL (130-400); RBC Distribution Width 14.8 % (11.5-14.5); Red Blood Cell (RBC) Count 4.19 mill/uL (4.20-5.40); White Blood Cell (WBC) Count 10.9 thou/uL (4.8-10.8)
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
[2017-11-08 19:29] LABS: BHCG - Serum Negative (NEGATIVE); Pregs Control Background? CLEAR/WHITE (CLR/WHITE); Pregs Control Bar Appear? YES (CONTROL BAR)
[2017-11-08] MEDS ORDERED: Fentanyl 100 MCG/2 ML VIAL ONE ×3 (19:31→20:21)
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
[2017-11-08 19:40] LABS: ALT (SGPT) 17 U/L (8-55); AST (SGOT) 31 U/L (5-34); Alcohol 36 mg/dL (Less than 10); Alkaline Phosphatase 66 U/L (40-150); BUN (Urea Nitrogen) 11 mg/dL (7.0-18.7); Bilirubin, Total 0.3 mg/dL (0.2-1.2); Calc. Creatinine Clearance 0 mL/min (70-130); Carbon Dioxide 16 mmol/L (22-29); Chloride 110 mmol/L (98-107); Estimated GFR-MDRD 90; Globulin 3.2 g/dL (2.4-3.5); Glucose 133 mg/dL (70-105); Lipase 12 U/L (8-78); Potassium 3.5 mmol/L (3.5-5.1); Protein, Total 7.2 g/dL (6.0-8.3); Sodium 138 mmol/L (136-145)
[2017-11-08 19:41] LABS: Anion Gap 16 mmol/L (10-20)
[2017-11-08 19:55] LABS: Prothrombin Time 12.7 SEC (12.0-14.7)
[2017-11-08 19:56] LABS: PTT 26.2 SEC (22.9-36.1)
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
[2017-11-08 20:29] LABS: Bilirubin Negative (Negative); Blood, Urine Trace (Negative); Clarity CLEAR (Clear); Glucose, Urine (Dipstick) Negative (Negative); Leukocyte Trace (Negative); Nitrite Negative (Negative); Protein, Urine (Dipstick) Negative (Neg-Trace); Specific Gravity, Urine 1.039 (1.002-1.036); Urobilinogen 0.2 mg/dL (0.2-1.0)
[2017-11-08 20:30] LABS: Pregnancy Test - Urine (BHCG) Negative (Negative)
[2017-11-08 20:31] LABS: Bacteria/HPF None Seen HPF (None Seen); Hyaline Casts/LPF 0-3 HYALINE CAST LPF (0-3 Hyaline); Pathc Cast-AUWi Flag 0.29 (0-2.49); Pregu Control Background? CLEAR/WHITE (CLR/WHITE); Pregu Control Bar Appear? YES (CONTROL BAR); RBC/HPF 0-3 HPF (0-3); Specific Gravity 1.039 (1.002-1.036); Squamous Epithelial 0-3 HPF (0-3)
[2017-11-08] MEDS ORDERED: Promethazine HCl 25 MG/ML VIAL IM PRN ×2 (22:57)
[2017-11-08] MEDS ORDERED: Ondansetron HCl/PF 4 MG/2 ML Vial IVP PRN (22:57)
[2017-11-08] MEDS ORDERED: Dextrose 5% in Water 1,000 ML IV PRN (22:57)
[2017-11-08] MEDS ORDERED: Ketorolac Tromethamine 30 MG/ML VIAL IVP SCH (22:57)
[2017-11-08] MEDS ORDERED: Morphine 4 MG/ML Carpuject IVP PRN (22:57)
[2017-11-08] MEDS ORDERED: Ondansetron ODT 4 MG TAB PO PRN (22:57)
[2017-11-08] MEDS ORDERED: HYDROcodone/Acetaminophen 10/325 mg Tablet PO PRN (22:57)
[2017-11-08] MEDS ORDERED: Dextrose 50% Abboject 50 ML SYRINGE SLOW IVP PRN (22:57)
[2017-11-08] MEDS ORDERED: Morphine 4 MG/ML VIAL IV PRN (23:11)
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
[2017-11-08] MEDS: Acetaminophen 1,000 MG in Premix Bag 1 BAG IVPB SCH (23:25)
[2017-11-08] MEDS: Sodium Chloride 0.9% 1,000 ML IV SCH (23:25)
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
[2017-11-09 01:30] VITALS: BMI 34.0
[2017-11-09 04:41] LABS: #Lymphocytes 1.1 thou/uL (1.20-3.40); #Monocytes 0.6 thou/uL (0.11-0.59); #Neutrophils 4.2 thou/uL (1.40-6.50); %Basophils 0.1 % (0.0-1.0); %Eosinophils 0.1 % (0.0-10.0); %Lymphocytes 18.8 % (21.0-51.0); %Monocytes 10.2 % (0.0-10.0); %Neutrophils 70.9 % (42.0-75.0); Hemoglobin 11.2 g/dL (12.0-16.0); Mean Corpuscular HGB CONC 34.4 g/dL (32.0-36.0); Mean Corpuscular Hemoglobin 31.6 pg (27.0-31.0); Mean Corpuscular Volume 91.7 fL (78.0-98.0); Mean Platelet Volume 7.8 fL (7.4-10.4); Platelet Count 167 thou/uL (130-400); RBC Distribution Width 14.8 % (11.5-14.5); Red Blood Cell (RBC) Count 3.55 mill/uL (4.20-5.40)
[2017-11-09 04:44] LABS: Anion Gap 12 mmol/L (10-20); BUN (Urea Nitrogen) 11 mg/dL (7.0-18.7); Calc. Creatinine Clearance 139 mL/min (70-130); Calcium 8.8 mg/dL (7.8-10.44); Carbon Dioxide 22 mmol/L (22-29); Chloride 109 mmol/L (98-107); Estimated GFR-MDRD Greater than 90; Glucose 100 mg/dL (70-105); Potassium 4.3 mmol/L (3.5-5.1); Sodium 139 mmol/L (136-145)
[2017-11-09] MEDS: Acetaminophen 1,000 MG in Premix Bag 1 BAG IVPB SCH (06:24)
[2017-11-09] MEDS: Ketorolac Tromethamine 30 MG/ML VIAL IVP SCH ×3 (06:25→17:42)
[2017-11-09] MEDS: Famotidine 20 MG TAB PO SCH ×2 (08:49→20:58)
[2017-11-09] MEDS: Sodium Chloride 0.9% 1,000 ML IV SCH ×2 (08:49→17:42)
[2017-11-09] MEDS ORDERED: Midazolam HCl 2 mg/2 ml Vial ONE ×2 (09:02→09:30)
[2017-11-09] MEDS ORDERED: Fentanyl 100 MCG/2 ML VIAL ONE ×3 (09:02→11:34)
[2017-11-09] MEDS ORDERED: Ondansetron HCl/PF 4 MG/2 ML Vial IVP PRN ×3 (09:17→11:22)
[2017-11-09] MEDS ORDERED: Ketorolac Tromethamine 30 MG/ML VIAL IVP PRN ×2 (09:17→09:52)
[2017-11-09] MEDS ORDERED: Neomycin-Polymyxin 1 ML AMP ONE (09:31)
[2017-11-09] MEDS ORDERED: CEFAZOLIN/Water 2 GM/20 ML SYRINGE ONE (09:43)
[2017-11-09] MEDS ORDERED: Ropivacaine HCl/PF 250 ML in Premix Bag 1 BAG NERVE BLCK SCH (09:52)
[2017-11-09] MEDS ORDERED: HYDROcodone/Acetaminophen 10/325 mg Tablet PO PRN ×3 (09:52→11:22)
[2017-11-09] MEDS ORDERED: traMADol HCl 50 MG TAB PO PRN ×3 (09:52→11:22)
[2017-11-09] MEDS ORDERED: Zolpidem Tartrate 5 MG TAB PO PRN (09:52)
[2017-11-09] MEDS ORDERED: Promethazine HCl 25 MG/ML VIAL IM PRN (09:52)
[2017-11-09] MEDS ORDERED: Fentanyl 100 MCG/2 ML VIAL IV PRN (09:53)
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
[2017-11-09] MEDS ORDERED: Bupivacaine 0.25% HCL 30 ML VIAL ONE (11:15)
[2017-11-09] MEDS ORDERED: Ropivacaine 0.5% HCl/PF (150 MG/30 ML VIAL) ONE (11:15)
[2017-11-09] MEDS ORDERED: Ondansetron ODT 4 MG TAB PO PRN (11:22)
[2017-11-09] MEDS ORDERED: Cepastat Lozenges 1 LOZ PO PRN (11:22)
[2017-11-09] MEDS ORDERED: Milk Of Magnesia 30 ML UDCUP PO PRN (11:22)
[2017-11-09] MEDS ORDERED: Fleet Enema 133 ML BOT PR PRN (11:22)
[2017-11-09] MEDS ORDERED: Bisacodyl 10 MG SUPP PR PRN (11:22)
[2017-11-09] MEDS ORDERED: Ketorolac Tromethamine 30 MG/ML VIAL ONE (11:35)
--- NOTE | 2017-11-09 12:13 | OP ---
DATE OF OPERATION: 11/09/2017 PREOPERATIVE DIAGNOSIS: Bimalleolar fracture of the right ankle. POSTOPERATIVE DIAGNOSIS: Bimalleolar fracture of the right ankle. PROCEDURE: Open reduction internal fixation of bimalleolar fracture of the right ankle. SURGEON: Yohan Ward M.D. ANESTHESIA: General. TECHNIQUE: The patient had a block performed in the proximal aspect of the right leg prior to surger y. She was given preoperative IV antibiotics, taken to the operating room and placed in the supine p osition. Satisfactory general anesthesia was performed. The right foot, ankle, and leg were sterile ly prepped and draped in usual fashion. After exsanguination tourniquet at the proximal right calf w as raised to 250 mmHg. Initially, a longitudinal incision was made approximately an inch and half in length over the medial malleolus. The medial malleolar fracture extended to the weightbearing surfac e of the medial aspect of the tibia. The fracture was opened and the ankle joint was irrigated with antibiotic solution under fluoroscopic visualization, the fracture was then reduced and internally fi xed with four 4.0 cannulated screws. A longitudinal incision was then made on the lateral aspect of the ankle approximately 3-1/2 inches in length. Blunt and sharp dissection made down to the lateral aspect of the distal fibula. The distal fibular fracture was reduced and then internally fixed with a Synthes distal fibular locking plate initially using a 3.5 cortical screw in the distal shaft and t hen five 2.7 locking screws distally and additional 2.7 locking screw in the shaft. This was again a ll performed under fluoroscopic visualization and showed a good reduction of the ankle joint with goo d stability. Both wounds were then copiously irrigated with antibiotic solution. They were closed u sing 2-0 Vicryl for the fat and subcutaneous tissue, and skin was closed 3-0 Rapide. Sterile dressin g was applied. The patient was placed in a boot. Tourniquet was released. The patient was awakened , extubated, and transferred to recovery room in stable condition. ESTIMATED BLOOD LOSS: Minimal. COMPLICATIONS: None.
[2017-11-09] MEDS ORDERED: PROPOFOL 200 MG/20 ML VIAL ONE (12:22)
[2017-11-09] MEDS ORDERED: Lidocaine 1% PF 5 ML VIAL ONE (12:22)
[2017-11-09] MEDS ORDERED: Dexamethasone 20 MG/5 ML VIAL ONE (12:22)
[2017-11-09] MEDS: HYDROcodone/Acetaminophen 10/325 mg Tablet PO PRN (13:36)
--- NOTE | 2017-11-09 14:45 | RAD ---
THREE INTRAOPERATIVE FLUOROSCOPIC IMAGES RIGHT ANKLE: Date: 11-09-17 History: ORIF right ankle fracture. FINDINGS: Multiple screws transfix the fracture involving the medial malleolar with a lateral plate and screws transfixing fracture of the distal fibula. Small fracture fragment is seen adjacent to the distal tib ia metaphysis. IMPRESSION: Post-surgical changes related to internal fixation of the fractures involving the distal right tibia and fibula. POS: CARLOS
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
[2017-11-09] MEDS: Senokot S 8.6-50 MG TAB PO SCH (20:58)
[2017-11-10] MEDS: Ketorolac Tromethamine 30 MG/ML VIAL IVP SCH ×2 (00:05→21:35)
[2017-11-10] MEDS: Sodium Chloride 0.9% 1,000 ML IV SCH ×3 (00:57→17:37)
[2017-11-10 05:43] LABS: Hemoglobin 10.5 g/dL (12.0-16.0); Mean Corpuscular HGB CONC 33.8 g/dL (32.0-36.0); Mean Corpuscular Hemoglobin 31.3 pg (27.0-31.0); Mean Corpuscular Volume 92.6 fL (78.0-98.0); Mean Platelet Volume 8.6 fL (7.4-10.4); Platelet Count 158 thou/uL (130-400); RBC Distribution Width 14.7 % (11.5-14.5); Red Blood Cell (RBC) Count 3.36 mill/uL (4.20-5.40)
[2017-11-10 05:53] LABS: Anion Gap 11 mmol/L (10-20); BUN (Urea Nitrogen) 10 mg/dL (7.0-18.7); Calc. Creatinine Clearance 142 mL/min (70-130); Calcium 8.4 mg/dL (7.8-10.44); Carbon Dioxide 23 mmol/L (22-29); Chloride 109 mmol/L (98-107); Estimated GFR-MDRD Greater than 90; Glucose 88 mg/dL (70-105); Potassium 3.7 mmol/L (3.5-5.1); Sodium 139 mmol/L (136-145)
[2017-11-10] MEDS: HYDROcodone/Acetaminophen 10/325 mg Tablet PO PRN ×2 (08:06→16:13)
[2017-11-10] MEDS: Multivitamin W/ Minerals 1 TAB PO SCH (10:14)
[2017-11-10] MEDS: Senokot S 8.6-50 MG TAB PO SCH ×2 (10:14→21:35)
[2017-11-10] MEDS: Aspirin 81 mg Enteric Coated Tablet PO SCH (10:14)
[2017-11-10] MEDS: Ferrous Gluconate 324 MG TAB PO SCH ×2 (10:14→21:34)
[2017-11-10] MEDS: Famotidine 20 MG TAB PO SCH ×2 (10:14→21:34)
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
[2017-11-10] MEDS ORDERED: Enoxaparin Sodium 30 MG/0.3 ML SYRINGE SC SCH (21:15)
[2017-11-10] MEDS: Acetaminophen 325 MG TAB PO SCH (21:35)
[2017-11-10] MEDS: traMADol HCl 50 MG TAB PO SCH (21:36)
[2017-11-11] MEDS: Acetaminophen 325 MG TAB PO SCH ×4 (03:37→23:45)
[2017-11-11] MEDS: Ketorolac Tromethamine 30 MG/ML VIAL IVP SCH ×2 (03:37→09:41)
[2017-11-11] MEDS: traMADol HCl 50 MG TAB PO SCH ×4 (03:40→20:31)
[2017-11-11] MEDS: HYDROcodone/Acetaminophen 10/325 mg Tablet PO PRN ×2 (04:27→09:38)
[2017-11-11] MEDS: Ropivacaine HCl/PF 250 ML in Premix Bag 1 BAG NERVE BLCK SCH (06:59)
[2017-11-11] MEDS: Famotidine 20 MG TAB PO SCH ×2 (09:40→20:30)
[2017-11-11] MEDS: Enoxaparin Sodium 30 MG/0.3 ML SYRINGE SC SCH ×2 (09:41→15:39)
[2017-11-11] MEDS: Multivitamin W/ Minerals 1 TAB PO SCH (09:41)
[2017-11-11] MEDS: Senokot S 8.6-50 MG TAB PO SCH ×2 (09:42→23:45)
[2017-11-11] MEDS ORDERED: Milk Of Magnesia 30 ML UDCUP PO SCH (10:45)
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
[2017-11-11] MEDS: Ibuprofen 600 MG TAB PO PRN (12:58)
[2017-11-11] MEDS: Aspirin 81 mg Enteric Coated Tablet PO SCH (12:59)
[2017-11-11] MEDS: Ferrous Gluconate 324 MG TAB PO SCH ×2 (13:03→20:30)
[2017-11-12] MEDS: traMADol HCl 50 MG TAB PO SCH ×4 (03:30→20:13)
[2017-11-12] MEDS: Ropivacaine HCl/PF 250 ML in Premix Bag 1 BAG NERVE BLCK SCH (03:32)
[2017-11-12] MEDS: Acetaminophen 325 MG TAB PO SCH ×4 (03:40→22:15)
[2017-11-12] MEDS: Senokot S 8.6-50 MG TAB PO SCH ×2 (09:00→22:15)
[2017-11-12] MEDS: Multivitamin W/ Minerals 1 TAB PO SCH (09:00)
[2017-11-12] MEDS: Ferrous Gluconate 324 MG TAB PO SCH ×2 (09:00→20:14)
[2017-11-12] MEDS: Milk Of Magnesia 30 ML UDCUP PO SCH (09:00)
[2017-11-12] MEDS: Aspirin 81 mg Enteric Coated Tablet PO SCH (09:01)
[2017-11-12] MEDS: Enoxaparin Sodium 30 MG/0.3 ML SYRINGE SC SCH ×2 (09:02→22:15)
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
[2017-11-12] MEDS: HYDROcodone/Acetaminophen 10/325 mg Tablet PO PRN (14:55)
--- NOTE | 2017-11-13 01:10 | PRG ---
DATE OF SERVICE: 11/12/2017 SUBJECTIVE: Ms. Gagnon is 3 days status post ORIF of bimalleolar fracture of the right ankle. The patient states she is tolerating the boot well. She still has pain and swelling in the left knee and has been wearing a knee brace when she does get up with physical therapy. She has been wearing her collar for C2 vertebral fracture. The patient states that her pain in general decreasing. She menta lly was a little down and refused various medications such as Lovenox, vitamin supplements, and Tylen ol and she also refused physical therapy today. She has felt a little better this early afternoon. OBJECTIVE: The patient has been afebrile. Vital signs have been stable. Both lower extremities wer e neurovascularly intact. PLAN: I again reinforced to the patient. She needs to be nonweightbearing on the right foot. We wi ll check out the left knee with the MRI as an outpatient torn meniscus in the knee, but we will get an MRI later time. She will continue wearing the knee brace with physical therapy.
[2017-11-13] MEDS: traMADol HCl 50 MG TAB PO SCH ×2 (03:40→09:04)
[2017-11-13] MEDS: Acetaminophen 325 MG TAB PO SCH ×2 (03:45→09:05)
[2017-11-13] MEDS: HYDROcodone/Acetaminophen 10/325 mg Tablet PO PRN ×2 (06:02→14:07)
[2017-11-13] MEDS: Multivitamin W/ Minerals 1 TAB PO SCH (09:05)
[2017-11-13] MEDS: Aspirin 81 mg Enteric Coated Tablet PO SCH (09:06)
[2017-11-13] MEDS: Ibuprofen 600 MG TAB PO PRN (09:06)
[2017-11-13] MEDS: Enoxaparin Sodium 30 MG/0.3 ML SYRINGE SC SCH (09:07)
[2017-11-13] MEDS: Ferrous Gluconate 324 MG TAB PO SCH (09:07)
[2017-11-13] MEDS: Milk Of Magnesia 30 ML UDCUP PO SCH (09:07)
[2017-11-13] MEDS: Senokot S 8.6-50 MG TAB PO SCH (09:07)
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
[2017-11-13 16:52] VITALS: BP 151/104; TEMP 98.7
== END 2017-11-13 17:14 | disposition home or self-care (01) | DRG 492 ==
LOC: ERS 18:32 → SURG B 21:15
PROVIDERS: ADMIT Surgery; ATTEND Surgery
PROC: 0QSJ04Z Reposition Right Fibula with Internal Fixation Device, Open Approach (ICD-10-PCS; principal; 2017-11-09)
PROC: 0QSG04Z Reposition Right Tibia with Internal Fixation Device, Open Approach (ICD-10-PCS; 2017-11-09)
DX: S82.841A Displaced bimalleolar fracture of right lower leg, initial encounter for closed fracture (principal); S06.339A Contusion and laceration of cerebrum, unspecified, with loss of consciousness of unspecified duration, initial encounter; S12.190A Other displaced fracture of second cervical vertebra, initial encounter for closed fracture; S20.219A Contusion of unspecified front wall of thorax, initial encounter; S30.1XXA Contusion of abdominal wall, initial encounter; M25.562 Pain in left knee; C50.919 Malignant neoplasm of unspecified site of unspecified female breast; V49.88XA Car occupant (driver) (passenger) injured in other specified transport accidents, initial encounter; Y92.410 Unspecified street and highway as the place of occurrence of the external cause; Z79.899 Other long term (current) drug therapy
CPT/HCPCS: 36415; 70450; 71260; 72125; 74177; 76001; 80048; 80053; 80307; 81003; 81015; 81025; 83605; 83690; 84703; 85025; 85027; 85610; 85730; 86850; 86900; 86901; 90715; C1713; C1769; G0390; G8978-GP-CL; G8979-GP-CJ; G8987-GO-CK; G8988-GO-CI; J0131; J1650; J1885; J2250; J2270; J2405; J2795; J3010; Q0162

== ENCOUNTER 2018-01-11 14:59 | Inpatient (IN) | payer OTHER ==
[2018-01-11] MEDS ORDERED: Ondansetron ODT 4 MG TAB ONE (15:07)
[2018-01-11 16:40] LABS: #Lymphocytes 1.5 thou/uL (1.20-3.40); #Monocytes 0.6 thou/uL (0.11-0.59); #Neutrophils 5.3 thou/uL (1.40-6.50); %Basophils 0.4 % (0.0-1.0); %Eosinophils 0.5 % (0.0-10.0); %Lymphocytes 20.6 % (21.0-51.0); %Monocytes 7.6 % (0.0-10.0); %Neutrophils 70.9 % (42.0-75.0); Hemoglobin 16.1 g/dL (12.0-16.0); Mean Corpuscular HGB CONC 32.3 g/dL (32.0-36.0); Mean Corpuscular Hemoglobin 29.1 pg (27.0-31.0); Mean Corpuscular Volume 90.1 fL (78.0-98.0); Mean Platelet Volume 9.5 fL (7.4-10.4); Platelet Count 131 thou/uL (130-400); RBC Distribution Width 14.5 % (11.5-14.5); Red Blood Cell (RBC) Count 5.53 mill/uL (4.20-5.40); White Blood Cell (WBC) Count 7.5 thou/uL (4.8-10.8)
[2018-01-11 17:01] LABS: ALT (SGPT) 15 U/L (8-55); AST (SGOT) 35 U/L (5-34); Albumin 4.7 g/dL (3.5-5.0); Alkaline Phosphatase 101 U/L (40-150); Anion Gap 17 mmol/L (10-20); BUN (Urea Nitrogen) 10 mg/dL (7.0-18.7); Bilirubin, Total 0.6 mg/dL (0.2-1.2); CK (CPK) 106 U/L (29-168); Calc. Creatinine Clearance 0 mL/min (70-130); Calcium 10.6 mg/dL (7.8-10.44); Carbon Dioxide 20 mmol/L (22-29); Chloride 103 mmol/L (98-107); Estimated GFR-MDRD 90; Globulin 4.8 g/dL (2.4-3.5); Glucose 102 mg/dL (70-105); Potassium 5.2 mmol/L (3.5-5.1); Protein, Total 9.5 g/dL (6.0-8.3); Sodium 135 mmol/L (136-145)
[2018-01-11] MEDS ORDERED: Metoclopramide HCl 10 MG/2 ML VIAL ONE (17:20)
[2018-01-11] MEDS ORDERED: diphenhydrAMINE 25 MG CAP ONE (17:20)
[2018-01-11] MEDS ORDERED: Ketorolac Tromethamine 30 MG/ML VIAL ONE (17:20)
[2018-01-11 17:22] LABS: PTT 32.2 SEC (22.9-36.1); Prothrombin Time 13.2 SEC (12.0-14.7)
[2018-01-11] MEDS ORDERED: Ondansetron PF 4 MG/2 ML Vial IVP PRN ×2 (19:32→23:42)
[2018-01-11] MEDS ORDERED: Sodium Chloride 0.9% 1,000 ML IV SCH (19:32)
[2018-01-11] MEDS ORDERED: Acetaminophen 325 MG TAB PO PRN (19:32)
[2018-01-11] MEDS ORDERED: Ondansetron ODT 4 MG TAB SL PRN (19:32)
[2018-01-11 19:50] VITALS: BMI 34.5
[2018-01-11] MEDS ORDERED: Ibuprofen 200 MG TAB PO PRN (23:42)
[2018-01-11] MEDS ORDERED: Ibuprofen 600 MG TAB PO PRN (23:42)
[2018-01-11] MEDS ORDERED: Ondansetron ODT 4 MG TAB PO PRN (23:42)
[2018-01-11] MEDS ORDERED: Dexamethasone 4 MG in Sodium Chloride 0.9% 50 ML IVPB SCH (23:45)
[2018-01-12] MEDS: Sodium Chloride 0.9% 1,000 ML IV SCH ×3 (00:17→21:51)
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
[2018-01-12 04:29] LABS: Anion Gap 11 mmol/L (10-20); BUN (Urea Nitrogen) 9 mg/dL (7.0-18.7); Calc. Creatinine Clearance 143 mL/min (70-130); Calcium 9.4 mg/dL (7.8-10.44); Carbon Dioxide 19 mmol/L (22-29); Chloride 110 mmol/L (98-107); Estimated GFR-MDRD Greater than 90; Glucose 120 mg/dL (70-105); Potassium 4.1 mmol/L (3.5-5.1); Sodium 136 mmol/L (136-145)
[2018-01-12] MEDS: Acetaminophen 325 MG TAB PO PRN ×2 (04:31→11:37)
[2018-01-12 06:09] LABS: #Monocytes 0.2 thou/uL (0.11-0.59); %Basophils 0.1 % (0.0-1.0); %Eosinophils 0.3 % (0.0-10.0); %Lymphocytes 15.6 % (21.0-51.0); %Monocytes 2.6 % (0.0-10.0); %Neutrophils 81.3 % (42.0-75.0); Hemoglobin 13.6 g/dL (12.0-16.0); Mean Corpuscular HGB CONC 32.2 g/dL (32.0-36.0); Mean Corpuscular Hemoglobin 29.4 pg (27.0-31.0); Mean Corpuscular Volume 91.3 fL (78.0-98.0); Platelet Count 224 thou/uL (130-400); RBC Distribution Width 14.1 % (11.5-14.5); RBC Morphology Normal; Red Blood Cell (RBC) Count 4.63 mill/uL (4.20-5.40); White Blood Cell (WBC) Count 6.2 thou/uL (4.8-10.8)
[2018-01-12] MEDS: Aspirin 81 mg Enteric Coated Tablet PO SCH (08:51)
[2018-01-12] MEDS: Enoxaparin Sodium 40 MG/0.4 ML SYRINGE SC SCH (08:52)
[2018-01-12] MEDS ORDERED: Prevnar 13-Val Conj/PF 0.5 ML SYRINGE IM ONE (09:00)
[2018-01-12] MEDS: HYDROcodone/Acetaminophen 10/325 mg Tablet PO PRN (12:49)
[2018-01-12] MEDS: Metoclopramide HCl 10 MG TAB PO PRN (12:50)
--- NOTE | 2018-01-12 17:46 | PDOC.PN ---
- Subjective Encounter Start Date: 01/12/18 Encounter Start Time: 13:00 Patient was seen this morning prior to MRI, she reports doing a little better from admission. She was transported down to MRI and suffered new onset seizure prior to undergoing MRI. She was then transferred to stroke floor for close monitoring and Dr Loja was consulted for further evaluation. She now complains of headache and nausea since being transferred and being medicated with reglan and zofran. - Objective Resuscitation Status: Resuscitation Status FULL:Full Resuscitation MAR Reviewed: Yes Vital Signs & Weight: Vital Signs (12 hours) Temp Pulse Pulse Pulse Pulse Pulse Pulse 01/12/18 16:00 98.5 F 80 01/12/18 11:56 97.8 F 62 01/12/18 10:40 01/12/18 10:30 97.7 F 62 01/12/18 10:00 127 H 71 90 99 70 01/12/18 08:55 01/12/18 07:16 97.6 F 66 Resp Resp Resp BP BP BP BP 01/12/18 16:00 16 01/12/18 11:56 16 01/12/18 10:40 01/12/18 10:30 18 01/12/18 10:00 37 H 25 H 191/69 H 168/115 H 133/100 H 149/82 H 01/12/18 08:55 01/12/18 07:16 18 BP Pulse Ox Pulse Ox Pulse Ox Pulse Ox 01/12/18 16:00 125/88 100 01/12/18 11:56 126/97 H 100 01/12/18 10:40 100 01/12/18 10:30 149/92 H 100 01/12/18 10:00 98 100 100 01/12/18 08:55 163/97 H 01/12/18 07:16 187/94 H 99 Weight Weight 195 lb 4 oz I&O: 01/11/18 01/12/18 01/13/18 06:59 06:59 06:59 Intake Total 1614 Output Total 800 200 Balance 814 -200 Result Diagrams: 01/12/18 04:00 01/12/18 03:59 Radiology Reviewed by me: Yes EKG Reviewed by me: Yes Phys Exam - Physical Examination Constitutional: NAD Lethargic HEENT: PERRLA, moist MMs, oral pharynx no lesions Neck: no nodes, no JVD, supple Respiratory: no wheezing, no rales, no rhonchi, clear to auscultation bilateral Cardiovascular: RRR, no significant murmur, no rub Gastrointestinal: soft, non-tender, no distention, positive bowel sounds Nausea and vomiting noted, 3 episodes of emesis so far today Musculoskeletal: no edema, pulses present Neurological: non-focal, normal sensation, moves all 4 limbs Lymphatic: no nodes Psychiatric: normal affect, A&O x 3 Skin: no rash, normal turgor, cap refill <2 seconds Dx/Plan (1) Metastatic breast cancer Code(s): C50.919 - MALIGNANT NEOPLASM OF UNSP SITE OF UNSPECIFIED FEMALE BREAST Status: Acute (2) Nausea & vomiting Code(s): R11.2 - NAUSEA WITH VOMITING, UNSPECIFIED Status: Acute (3) Seizures Code(s): R56.9 - UNSPECIFIED CONVULSIONS Status: Acute Comment: stable on keppra (4) Headache Code(s): R51 - HEADACHE Status: Resolved - Plan cont current plan of care, DVT proph w/lovenox * Patient transferred to stroke floor for further monitoring. * Consult Dr Loja for further evaluation for new onset seizures * Continue reglan and zofran as needed for nausea * Continue symptomatic control * Await MRI * Further management pending patient progress and recommendations per Dr Loja
[2018-01-12] MEDS ORDERED: Ketorolac Tromethamine 30 MG/ML VIAL IVP SCH (21:00)
[2018-01-12] MEDS: levETIRAcetam In NaCl (Iso-Os) 1,000 MG in Premix Bag 1 BAG IVPB SCH ×2 (21:52→21:53)
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
--- NOTE | 2018-01-13 09:16 | EEG ---
Referring Physician: KAITLYN BEAVERS EEG # [id number] TEST TYPE: ROUTINE PORTABLE INPATIENT REPORT: AN EEG USING THE INTERNATIONAL TEN-TWENTY SYSTEM OF ELECTRODE PLACEMENT WAS PERFORMED. The background activity consists of mixed frequency slowing. Photic stimulation was unremarkable. No epileptiform features were noted. IMPRESSION: THIS IS AN ABNORMAL STUDY FOR THE FINDINGS OF MIXED FREQUENCY SLOWING. THESE FINDINGS COULD BE CONSISTENT WITH A POSTICTAL STATE. Road Passenger Firer: JULY Control Clerk Head: EEG.MELISSA ROSARIO
--- NOTE | 2018-01-13 09:36 | MRI ---
BRAIN MRI WITH AND WITHOUT CONTRAST: Clinical history: Headache. Comparison: Head CT, 01-07-18 FINDINGS: There is diffuse abnormal white matter signal abnormality throughout each cerebral hemisphere which d oes not result in restriction or enhancement. Finding is new from MRI 12-24-16. There is no acute int racranial hemorrhage. No significant mass effect or midline shift. Septum pellucidum remains at midli ne. There is a mild degree of pachymeningeal and leptomeningeal enhancement involving the posterior c ranial fossa centered about the cerebellar tentorium bilaterally and interposed within the cerebellar sulci. Motion artifact is present which does limit assessment. IMPRESSION: Subtle pachymeningeal and leptomeningeal enhancement in a basilar distribution. There is also diffuse white matter signal abnormality throughout each cerebral hemisphere. The pathologic extraaxial enhancement is most consistent with dural spread of metastatic disease. Diffuse white matter signal abnormality may relate to an associated encephalopathy. Correlation with lumbar puncture and CSF analysis would prove useful. POS: [facility]
[2018-01-13] MEDS: Aspirin 81 mg Enteric Coated Tablet PO SCH (10:11)
[2018-01-13] MEDS: Enoxaparin Sodium 40 MG/0.4 ML SYRINGE SC SCH (10:24)
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
--- NOTE | 2018-01-13 16:23 | PDOC.PN ---
- Subjective Encounter Start Date: 01/13/18 Encounter Start Time: 14:00 Patient lying in bed, she reports not feeling well today. Still reports headache and nausea this morning. She denies chest pain, shortness of breath. MRI brain shows concern for dural metastatic disease and diffuse white matter abnormalities, a LP was recommended however patient declining at this time. - Objective Resuscitation Status: Resuscitation Status FULL:Full Resuscitation MAR Reviewed: Yes Vital Signs & Weight: Vital Signs (12 hours) Temp Pulse Resp BP Pulse Ox 01/13/18 15:50 98.3 F 73 14 146/90 H 100 01/13/18 11:53 98.0 F 60 14 136/89 100 01/13/18 07:54 97.7 F 65 14 121/73 100 Weight Weight 195 lb 4 oz I&O: 01/12/18 01/13/18 01/14/18 06:59 06:59 06:59 Intake Total 1614 659 825 Output Total 800 875 500 Balance 814 -216 325 Result Diagrams: 01/12/18 04:00 01/12/18 03:59 Radiology Reviewed by me: Yes Phys Exam - Physical Examination mild distress due to headache and nausea HEENT: PERRLA, moist MMs, sclera anicteric, oral pharynx no lesions Neck: no nodes, no JVD, supple Respiratory: no wheezing, no rales, no rhonchi, clear to auscultation bilateral Cardiovascular: RRR, no significant murmur, no rub Gastrointestinal: soft, non-tender, no distention, positive bowel sounds Musculoskeletal: no edema, pulses present Neurological: non-focal, normal sensation, moves all 4 limbs Lymphatic: no nodes Psychiatric: normal affect, A&O x 3 Skin: no rash, normal turgor, cap refill <2 seconds Dx/Plan (1) Metastatic breast cancer Code(s): C50.919 - MALIGNANT NEOPLASM OF UNSP SITE OF UNSPECIFIED FEMALE BREAST Status: Acute (2) Nausea & vomiting Code(s): R11.2 - NAUSEA WITH VOMITING, UNSPECIFIED Status: Acute (3) Seizures Code(s): R56.9 - UNSPECIFIED CONVULSIONS Status: Acute Comment: stable on keppra (4) Headache Code(s): R51 - HEADACHE Status: Resolved - Plan cont current plan of care, DVT proph w/SCDs * MRI brain results reviewed and discussed with patient, declining LP at this time * Consult placed for palliative care for goals of care * Consult Dr Perez oncology services * Cardiology services following and no treatment needed for sinus arrhythmia and Type 1 second degree AV block as she remains asymptomatic at this time. * Further medical management pending patient progress.
[2018-01-13] MEDS: HYDROcodone/Acetaminophen 10/325 mg Tablet PO PRN (18:54)
[2018-01-13] MEDS: Sodium Chloride 0.9% 1,000 ML IV SCH ×2 (18:56)
[2018-01-14] MEDS: Sodium Chloride 0.9% 1,000 ML IV SCH (08:26)
[2018-01-14] MEDS: Aspirin 81 mg Enteric Coated Tablet PO SCH (12:35)
[2018-01-14] MEDS: Enoxaparin Sodium 40 MG/0.4 ML SYRINGE SC SCH (12:35)
--- NOTE | 2018-01-14 13:42 | PDOC.PN ---
- Subjective Encounter Start Date: 01/14/18 Encounter Start Time: 13:40 Patient lying in bed, no complaints at the moment. She was walking with PT this morning to the bathroom and felt lightheaded heading to the shower and she was helped to the ground. She denies chest pain, shortness of breath. She suffered a small abrasion to right ankle and knee. Dressing applied. Oncology planning bone scan and CT chest/abd/pelvis. - Objective Resuscitation Status: Resuscitation Status FULL:Full Resuscitation MAR Reviewed: Yes Vital Signs & Weight: Vital Signs (12 hours) Temp Pulse Resp BP Pulse Ox 01/14/18 11:59 98 F 65 20 130/89 98 01/14/18 07:51 97.8 F 52 L 20 139/98 H 99 01/14/18 04:00 98.0 F 60 16 172/95 H 100 Weight Weight 195 lb 4 oz I&O: 01/13/18 01/14/18 01/15/18 06:59 06:59 06:59 Intake Total 659 2485 825 Output Total 875 500 Balance -216 1985 825 Result Diagrams: 01/12/18 04:00 01/12/18 03:59 Radiology Reviewed by me: Yes Phys Exam - Physical Examination Constitutional: NAD HEENT: PERRLA, moist MMs, oral pharynx no lesions Neck: no nodes, no JVD, supple Respiratory: no wheezing, no rales, no rhonchi, clear to auscultation bilateral Cardiovascular: RRR, no significant murmur, no rub Gastrointestinal: soft, non-tender, no distention, positive bowel sounds Musculoskeletal: no edema, pulses present Neurological: non-focal, normal sensation, moves all 4 limbs Lymphatic: no nodes Psychiatric: normal affect, A&O x 3 Skin: no rash, normal turgor, cap refill <2 seconds Dx/Plan (1) Metastatic breast cancer Code(s): C50.919 - MALIGNANT NEOPLASM OF UNSP SITE OF UNSPECIFIED FEMALE BREAST Status: Acute (2) Nausea & vomiting Code(s): R11.2 - NAUSEA WITH VOMITING, UNSPECIFIED Status: Acute (3) Seizures Code(s): R56.9 - UNSPECIFIED CONVULSIONS Status: Acute Comment: stable on keppra (4) Headache Code(s): R51 - HEADACHE Status: Resolved - Plan cont current plan of care, DVT proph w/SCDs * Emotional support given, monitor patient progress and continue symptomatic management * Oncology following, await CT chest/abd/pelvis and bone scan * Patient refusing Lovenox for DVT prophylaxis therefore will discontinue * Further management pending patient progress and results of bone scan and CT
--- NOTE | 2018-01-14 17:17 | CT ---
CT OF THE CHEST WITH IV CONTRAST CT OF THE ABDOMEN AND PELVIS WITH IV CONTRAST 01/14/18 INDICATION: History of breast cancer with meningeal carcinomatosis. Currently on chemotherapy. COMPARISON: Prior CT chest, abdomen and pelvis dated 11/08/17 and 11/30/15. FINDINGS: CHEST: The lungs are clear. No suspicious pulmonary nodule, pleural effusion or pneumothorax is evident. Th ere are bilateral breast implants. Small hypodensity within the right hepatic lobe measuring 4 mm is stable on image 36, series 2. Area of suspected focal fatty infiltration near the falciform ligament is stable. The pancreas, adrenal glands and kidneys are normal appearing. The spleen is normal appearing. There is a normal appendix in the right lower quadrant. There is a diffuse scattered diverticula involving the colon. The bladder, uterus, adnexa, rectum and perirectal soft tissues are unremarkable. There are healing posterolateral left second through 6th rib fractures which been interval developmen t since the most recent exam dated 11/08/17. No suspicious osteolytic or osteoblastic lesion is evident. IMPRESSION: 1. No overt evidence to suggest metastatic disease within chest, abdomen or pelvis. 2. Interval development of healing left second through sixth rib fractures. 3. Stable tiny hypodensity within the right hepatic dome measuring 4 mm. 4. Other findings as above. POS: CARLOS
[2018-01-14] MEDS ORDERED: Methotrexate Sodium/PF 12.5 MG in Sodium Chloride 0.9% 9.5 ML IT SCH (18:30)
[2018-01-14] MEDS: HYDROcodone/Acetaminophen 10/325 mg Tablet PO PRN ×2 (19:15→23:58)
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
[2018-01-14] MEDS: Ketorolac Tromethamine 30 MG/ML VIAL IVP PRN (21:04)
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
[2018-01-15] MEDS: Sodium Chloride 0.9% 1,000 ML IV SCH ×2 (01:38→22:41)
[2018-01-15] MEDS: Aspirin 81 mg Enteric Coated Tablet PO SCH (08:36)
[2018-01-15] MEDS: levETIRAcetam 500 MG TAB PO SCH ×2 (08:36→22:01)
--- NOTE | 2018-01-15 10:29 | PRG ---
DATE OF SERVICE: 01/15/2018 SUBJECTIVE: Ms. Gagnon was reevaluated today. 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 This morning, she is continuing to have neck and occipital pain. These were the same symptoms that led to her initial diagnosis nearly a year ago. She denies any weakness or numbness in the hands or arms. She is stil l having some tingling in her fingertips on the left side. She is dizzy when she tries to walk. She has no nausea or vomiting at the present. I had hoped to get an MRI of her entire spine today, but she refused because of her neck pain. OBJECTIVE: VITAL SIGNS: Height 5 feet 3 inches, weight 195 pounds. Blood pressure is 144/85, pulse is 55, resp irations are 16, temperature 97.8, O2 saturation is 100% on room air. GENERAL: She is alert and oriented and in no apparent distress. Karnofsky performance status is sta ble at 80%. She is well-developed and well-nourished. NEUROLOGIC: She continues to move all extremities well with no demonstrable muscle weakness. Again, gait was not tested. ASSESSMENT: Mr. Gagnon is a 37-year-old female with a recurrence of her leptomeningeal carcinomatos is. This has previously been treated with intrathecal methotrexate with good results, but she appear s to be failing her intrathecal methotrexate. Although there have been some compliance issues and sh e has missed a dose of methotrexate in the past. Her last dose of methotrexate was early November. PLAN: I have discussed the case with her medical oncologist and with Jacqueline Cisneros the medical oncolo gy Nurse Practitioner. I had a long discussion with Ms. Gagnon and she was quite tearful during the discussion. I explained that her symptoms are almost certainly from her recurrence of her leptomeni ngeal carcinomatosis based off the MRI. The MRI shows enhancement of the meninges. There is no pare nchymal brain metastasis. It is disappointing that she was not able to do the MRI of the spine, but perhaps we can do this at a later date. I had a very honest and em discussion with Ms. Gagnon ab out the poor prognosis of the recurrent carcinomatosis. I explained that her survival is likely to b e quite short, typically measured in months at this point. She has actually done better than expecte d from when she was originally diagnosed. My recommendation was that we treat her with whole-brain r adiation therapy. Medical Oncology is in agreement with this recommendation also. The logistics of radiation as well as the benefits and risks of treatment were discussed. The simulation procedure wa s discussed. Side effects would include but not be limited to skin reaction, fatigue, lower blood co unts, headache, nausea, vomiting, and risk of radiation affecting her memory or mentation. Certainly there is some concern with the interaction between methotrexate and radiation therapy that this coul d cause significant cognitive decline; however, without our treatment, the carcinomatosis going to ca use cognitive decline in the near future. Given her short survival, it is likely that she would not live long enough to see cognitive decline any way. Time was taken to answer all her questions about this treatment option. I explained that her only other option would be to continue the intrathecal m ethotrexate, but this again does not appear to be working. If she declines all treatment and our onl y option would be hospice care. She wishes to discuss this with her family before making a decision. If she does decide to do radiation therapy sometime this morning, then we can potentially get her t reated with radiation therapy today. If she does not decide today about radiation, then we may not b e able to treat her until Thursday if she decides for treatment.
[2018-01-15] MEDS: HYDROcodone/Acetaminophen 10/325 mg Tablet PO PRN ×3 (11:09→22:00)
[2018-01-15] MEDS: Ketorolac Tromethamine 30 MG/ML VIAL IVP PRN (15:28)
[2018-01-15] MEDS: Metoclopramide HCl 10 MG TAB PO PRN (15:29)
--- NOTE | 2018-01-15 16:04 | NM ---
WHOLE BODY BONE SCAN: 01/15/18 HISTORY: Breast cancer with meningeal carcinomatosis. Patient is currently on chemotherapy. RADIOPHARMACEUTICAL: 32 millicuries of technetium 99m MDP injected intravenously. COMPARISON: 11/30/15. CORRELATION: CT chest, abdomen and pelvis from yesterday. FINDINGS: There are multiple foci of increased uptake in the left ribs consistent with fractures. Intensive up take in the right ankle was consistent with fracture and recent surgery. Increased uptake in the knee s is likely due to degenerative changes. There is soft tissue uptake in the right axillary and suprac lavicular lymph nodes likely from tracer extravasation in the right elbow. Tracer excretion of the ki dneys is within normal limits. IMPRESSION: Findings are consistent with traumatic and degenerative changes. No evidence of osseous metastatic di sease. POS: CARLOS
--- NOTE | 2018-01-15 16:17 | PDOC.PN ---
- Subjective Encounter Start Date: 01/15/18 Encounter Start Time: 16:15 Patient lying in bed, she is s/p bone scan which is negative for bone mets. She denies chest pain or shortness of breath but admits to back pain, neck pain and headache. She has refused MRI spine at this time. She has discussed care plan with Dr Shields and would like to proceed with Radiation therapy - Objective Resuscitation Status: Resuscitation Status FULL:Full Resuscitation MAR Reviewed: Yes Vital Signs & Weight: Vital Signs (12 hours) Temp Pulse Resp BP Pulse Ox 01/15/18 15:57 98.1 F 56 L 16 147/82 H 100 01/15/18 12:00 98.0 F 56 L 16 137/86 98 01/15/18 07:56 97.8 F 55 L 16 144/85 H 100 Weight Weight 195 lb 4 oz I&O: 01/14/18 01/15/18 01/16/18 06:59 06:59 06:59 Intake Total 2485 825 Output Total 500 500 Balance 1985 825 -500 Result Diagrams: 01/12/18 04:00 01/12/18 03:59 Radiology Reviewed by me: Yes Phys Exam - Physical Examination Mild acute distress due to pain HEENT: PERRLA, moist MMs, sclera anicteric, oral pharynx no lesions Neck: no nodes, no JVD, supple Respiratory: no wheezing, no rales, no rhonchi, clear to auscultation bilateral Cardiovascular: RRR, no significant murmur, no rub Gastrointestinal: soft, non-tender, no distention, positive bowel sounds Obese Musculoskeletal: no edema, pulses present Neurological: non-focal, normal sensation, moves all 4 limbs Lymphatic: no nodes Psychiatric: A&O x 3 Deviation from normal: Tearful Skin: no rash, normal turgor, cap refill <2 seconds Dx/Plan (1) Metastatic breast cancer Code(s): C50.919 - MALIGNANT NEOPLASM OF UNSP SITE OF UNSPECIFIED FEMALE BREAST Status: Acute (2) Nausea & vomiting Code(s): R11.2 - NAUSEA WITH VOMITING, UNSPECIFIED Status: Acute (3) Seizures Code(s): R56.9 - UNSPECIFIED CONVULSIONS Status: Acute Comment: stable on keppra (4) Headache Code(s): R51 - HEADACHE Status: Resolved - Plan cont current plan of care * Emotional support given * Dr Shields and oncology following and will proceed with radiation therapy * She is refusing MRI spine * Supportive therapy * Further medical management pending her progress
[2018-01-15] MEDS: Dexamethasone 4 MG TAB PO SCH (22:01)
[2018-01-16] MEDS: HYDROcodone/Acetaminophen 10/325 mg Tablet PO PRN ×3 (03:40→14:43)
[2018-01-16] MEDS: Aspirin 81 mg Enteric Coated Tablet PO SCH (10:00)
[2018-01-16] MEDS: Dexamethasone 4 MG TAB PO SCH ×2 (10:00→20:38)
[2018-01-16] MEDS: levETIRAcetam 500 MG TAB PO SCH (10:00)
--- NOTE | 2018-01-16 10:30 | EKG ---
Test Reason : Blood Pressure : / mmHG Vent. Rate : 058 BPM Atrial Rate : 058 BPM P-R Int : 160 ms QRS Dur : 084 ms QT Int : 432 ms P-R-T Axes : 014 021 022 degrees QTc Int : 424 ms Sinus bradycardia with marked sinus arrhythmia Minimal voltage criteria for LVH, may be normal variant Borderline ECG No previous ECGs available Confirmed by DR. Erwin TRUJILLO ([id number]) on 01/16/2018 10:30:22 AM Referred By: MEGAN Confirmed By:DR. Erwin TRUJILLO
[2018-01-16] MEDS: Sodium Chloride 0.9% 1,000 ML IV SCH ×2 (12:03→23:55)
[2018-01-16] MEDS: Ketorolac Tromethamine 30 MG/ML VIAL IVP PRN (12:04)
[2018-01-16] MEDS: Metoclopramide HCl 10 MG TAB PO PRN (14:43)
--- NOTE | 2018-01-16 15:05 | PDOC.PN ---
- Subjective Encounter Start Date: 01/16/18 Encounter Start Time: 15:03 Patient lying in bed with Aunt at bedside. She reports headache, nausea and vomiting today. She has been getting zofran and Reglan with little improvement. She denies chest pain, shortness of breath. She refused MRI today, therefore scheduled for tomorrow. She is complaining of neck and back pain. - Objective Resuscitation Status: Resuscitation Status FULL:Full Resuscitation MAR Reviewed: Yes Vital Signs & Weight: Vital Signs (12 hours) Temp Pulse Resp BP Pulse Ox 01/16/18 07:40 99 01/16/18 07:00 97.5 F L 51 L 16 149/86 H 100 01/16/18 03:55 98.2 F 56 L 16 131/91 H 100 Weight Weight 195 lb 4 oz I&O: 01/15/18 01/16/18 01/17/18 06:59 06:59 06:59 Intake Total 825 1193 Output Total 800 Balance 825 393 Result Diagrams: 01/12/18 04:00 01/12/18 03:59 Radiology Reviewed by me: Yes Phys Exam - Physical Examination Mild distress due to pain and nausea HEENT: PERRLA, moist MMs, sclera anicteric, oral pharynx no lesions Neck: no nodes, no JVD, supple Respiratory: no wheezing, no rales, no rhonchi, clear to auscultation bilateral Cardiovascular: RRR, no significant murmur, no rub Gastrointestinal: soft, non-tender, no distention Musculoskeletal: no edema, pulses present Neurological: non-focal, normal sensation, moves all 4 limbs Lymphatic: no nodes Psychiatric: normal affect, A&O x 3 Skin: no rash, normal turgor, cap refill <2 seconds Dx/Plan (1) Metastatic breast cancer Code(s): C50.919 - MALIGNANT NEOPLASM OF UNSP SITE OF UNSPECIFIED FEMALE BREAST Status: Acute (2) Nausea & vomiting Code(s): R11.2 - NAUSEA WITH VOMITING, UNSPECIFIED Status: Acute (3) Seizures Code(s): R56.9 - UNSPECIFIED CONVULSIONS Status: Acute Comment: stable on keppra (4) Headache Code(s): R51 - HEADACHE Status: Resolved - Plan cont current plan of care, plan discussed w/ family, DVT proph w/SCDs * D/c reglan and switch to phenergan to see if she tolerates better. * Continue symptomatic treatment * Oncology following along with radiation oncology * Patient to continue Radiation * Await MRI results for further management
[2018-01-16] MEDS ORDERED: Promethazine 25 MG TAB PO PRN (15:09)
[2018-01-16] MEDS ORDERED: Lorazepam 2 MG/ML VIAL ONE (17:03)
[2018-01-16] MEDS ORDERED: Lorazepam 2 MG/ML VIAL SLOW IVP PRN (17:21)
[2018-01-16 17:52] LABS: #Lymphocytes 0.9 thou/uL (1.20-3.40); #Monocytes 0.2 thou/uL (0.11-0.59); #Neutrophils 8.2 thou/uL (1.40-6.50); %Basophils 0.3 % (0.0-1.0); %Eosinophils 0.1 % (0.0-10.0); %Lymphocytes 9.9 % (21.0-51.0); %Monocytes 2.1 % (0.0-10.0); %Neutrophils 87.6 % (42.0-75.0); Hemoglobin 14.7 g/dL (12.0-16.0); Mean Corpuscular HGB CONC 33.3 g/dL (32.0-36.0); Mean Corpuscular Hemoglobin 29.7 pg (27.0-31.0); Mean Platelet Volume 8.4 fL (7.4-10.4); Platelet Count 244 thou/uL (130-400); RBC Distribution Width 13.7 % (11.5-14.5); Red Blood Cell (RBC) Count 4.96 mill/uL (4.20-5.40); White Blood Cell (WBC) Count 9.4 thou/uL (4.8-10.8)
[2018-01-16 18:15] LABS: ALT (SGPT) 77 U/L (8-55); AST (SGOT) 99 U/L (5-34); Albumin 4.3 g/dL (3.5-5.0); Alkaline Phosphatase 98 U/L (40-150); Anion Gap 17 mmol/L (10-20); BUN (Urea Nitrogen) 11 mg/dL (7.0-18.7); Bilirubin, Total 0.8 mg/dL (0.2-1.2); Calc. Creatinine Clearance 137 mL/min (70-130); Calcium 9.9 mg/dL (7.8-10.44); Carbon Dioxide 20 mmol/L (22-29); Chloride 101 mmol/L (98-107); Estimated GFR-MDRD Greater than 90; Globulin 3.6 g/dL (2.4-3.5); Glucose 130 mg/dL (70-105); Potassium 3.4 mmol/L (3.5-5.1); Protein, Total 7.9 g/dL (6.0-8.3); Sodium 135 mmol/L (136-145)
[2018-01-16] MEDS: levETIRAcetam In NaCl (Iso-Os) 1,000 MG in Premix Bag 1 BAG IVPB SCH (20:36)
[2018-01-17] MEDS: Ketorolac Tromethamine 30 MG/ML VIAL IVP PRN (01:42)
[2018-01-17] MEDS: HYDROcodone/Acetaminophen 10/325 mg Tablet PO PRN ×3 (04:13→16:50)
[2018-01-17] MEDS: hydrALAZINE 20 MG/ML VIAL SLOW IVP PRN (04:14)
[2018-01-17] MEDS: levETIRAcetam In NaCl (Iso-Os) 1,000 MG in Premix Bag 1 BAG IVPB SCH ×2 (09:07→21:38)
[2018-01-17] MEDS: Aspirin 81 mg Enteric Coated Tablet PO SCH (09:10)
[2018-01-17] MEDS: Dexamethasone 4 MG TAB PO SCH (09:10)
--- NOTE | 2018-01-17 10:59 | PDOC.PN ---
- Subjective Encounter Start Date: 01/17/18 Encounter Start Time: 10:56 Patient lying in bed with brother and family members at bedside. She recently refused MRI due to neck pain, she denies chest pain or shortness of breath. A adeola morrissey was called last night around 1700 for seizure, she was given 1mg Ativan that was successful, she returned to baseline and vitals stable. Keppra was increased to 1000mg BID and she is tolerating well, no seizure like activity since. Patient willing to try norco and tramadol before going for MRI, this will be rescheduled for 1330. - Objective Resuscitation Status: Resuscitation Status FULL:Full Resuscitation MAR Reviewed: Yes Vital Signs & Weight: Vital Signs (12 hours) Temp Pulse Resp BP BP Pulse Ox 01/17/18 08:00 97.9 F 72 16 141/91 H 97 01/17/18 04:14 66 189/101 H 01/17/18 04:00 99.0 F 53 L 16 189/101 H 100 01/17/18 00:00 96.5 F L 52 L 13 171/96 H 100 Weight Weight 195 lb 4 oz I&O: 01/16/18 01/17/18 01/18/18 06:59 06:59 06:59 Intake Total 1193 100 Output Total 800 725 500 Balance 393 -625 -500 Result Diagrams: 01/16/18 17:46 01/16/18 17:46 Additional Labs: Accuchecks 01/16/18 17:02 POC Glucose 113 H Radiology Reviewed by me: Yes EKG Reviewed by me: Yes Phys Exam - Physical Examination Mild acute distress due to neck pain. HEENT: PERRLA, moist MMs, oral pharynx no lesions Neck: no JVD, supple Respiratory: no wheezing, clear to auscultation bilateral Cardiovascular: RRR, no significant murmur, no rub Gastrointestinal: soft, non-tender, positive bowel sounds Musculoskeletal: no edema, pulses present Neurological: non-focal, normal sensation Lymphatic: no nodes Psychiatric: normal affect, A&O x 3 Skin: no rash, normal turgor Dx/Plan (1) Metastatic breast cancer Code(s): C50.919 - MALIGNANT NEOPLASM OF UNSP SITE OF UNSPECIFIED FEMALE BREAST Status: Acute (2) Nausea & vomiting Code(s): R11.2 - NAUSEA WITH VOMITING, UNSPECIFIED Status: Acute (3) Seizures Code(s): R56.9 - UNSPECIFIED CONVULSIONS Status: Acute Comment: stable on keppra (4) Headache Code(s): R51 - HEADACHE Status: Resolved - Plan cont current plan of care, plan discussed w/ family, DVT proph w/SCDs * Continue radiation therapy per Dr Shields * Symptomatic therapy, zofran and phenergan for nausea * Keppra increased to 1000mg BID * IV ativan as needed for seizure * Attempt to get her pain managed prior to MRI today
[2018-01-17] MEDS ORDERED: Lorazepam 0.5 MG TAB PO SCH (13:00)
[2018-01-17] MEDS: Sodium Chloride 0.9% 1,000 ML IV SCH (17:50)
[2018-01-17] MEDS ORDERED: Dexamethasone 4 mg/ml Vial SLOW IVP SCH (22:00)
[2018-01-18] MEDS: HYDROcodone/Acetaminophen 10/325 mg Tablet PO PRN (04:21)
[2018-01-18] MEDS: Dexamethasone 4 MG TAB PO SCH (06:49)
[2018-01-18] MEDS: Aspirin 81 mg Enteric Coated Tablet PO SCH (09:40)
[2018-01-18] MEDS: levETIRAcetam In NaCl (Iso-Os) 1,000 MG in Premix Bag 1 BAG IVPB SCH (09:41)
[2018-01-18] MEDS: Dexamethasone 4 mg/ml Vial SLOW IVP SCH ×2 (09:42→22:01)
[2018-01-18] MEDS: Sodium Chloride 0.9% 1,000 ML IV SCH ×2 (09:43→18:14)
--- NOTE | 2018-01-18 10:41 | PDOC.PN ---
- Subjective Encounter Start Date: 01/18/18 Encounter Start Time: 09:30 Subjective: patient is in no distress, lying in her bed sleeping, denies complaints -: Family at the bedside -: patient reports she will agree to go for the MRI today - Objective Resuscitation Status: Resuscitation Status FULL:Full Resuscitation Vital Signs & Weight: Vital Signs (12 hours) Temp Pulse Resp BP Pulse Ox 01/18/18 07:40 98.0 F 61 18 166/81 H 96 01/18/18 04:00 99.1 F 63 20 154/102 H 97 01/18/18 00:00 98.9 F 56 L 20 176/77 H 97 Weight Weight 88.564 kg I&O: 01/17/18 01/18/18 01/19/18 06:59 06:59 06:59 Intake Total 100 825 Output Total 725 500 400 Balance -625 -500 425 Result Diagrams: 01/16/18 17:46 01/16/18 17:46 Phys Exam - Physical Examination Constitutional: NAD HEENT: PERRLA, moist MMs Neck: no nodes, no JVD Respiratory: no wheezing, clear to auscultation bilateral Cardiovascular: RRR, no rub Gastrointestinal: soft, non-tender Musculoskeletal: no edema, pulses present Neurological: non-focal, normal sensation Lymphatic: no nodes Psychiatric: normal affect, A&O x 3 Skin: no rash, cap refill <2 seconds Dx/Plan (1) Metastatic breast cancer Code(s): C50.919 - MALIGNANT NEOPLASM OF UNSP SITE OF UNSPECIFIED FEMALE BREAST Status: Acute (2) Nausea & vomiting Code(s): R11.2 - NAUSEA WITH VOMITING, UNSPECIFIED Status: Acute (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 Mcleod * .
[2018-01-18] MEDS ORDERED: Lorazepam 2 MG/ML VIAL ONE ×3 (11:17→16:43)
[2018-01-18] MEDS ORDERED: Goserelin Acetate 3.6 MG KIT SC SCH (15:15)
[2018-01-18] MEDS ORDERED: Lorazepam 2 MG/ML VIAL SLOW IVP PRN (16:01)
--- NOTE | 2018-01-18 16:04 | PDOC.PN ---
- Subjective Encounter Start Date: 01/18/18 Encounter Start Time: 15:35 Subjective: f/u for seizure activity in context of leptomeningeal metastatic -: breast carcinoma. MRI spine aborted due to seizure and nsg reported -: seizure of 11min duration on stroke floor. Receiving Keppra 1000mg BID - Objective Resuscitation Status: Resuscitation Status FULL:Full Resuscitation MAR Reviewed: Yes Vital Signs & Weight: Vital Signs (12 hours) Temp Pulse Resp BP Pulse Ox 01/18/18 11:47 98.3 F 56 L 18 176/97 H 98 01/18/18 09:37 98 01/18/18 07:40 98.0 F 61 18 166/81 H 96 Weight Admit Weight 195 lb 4 oz Weight 195 lb 4 oz I&O: 01/17/18 01/18/18 01/19/18 06:59 06:59 06:59 Intake Total 100 825 Output Total 725 500 400 Balance -625 -500 425 Result Diagrams: 01/16/18 17:46 01/16/18 17:46 Additional Labs: Accuchecks 01/18/18 11:14 POC Glucose 113 H Radiology Reviewed by me: Yes (MRI brain - leptomeningeal metastasis) EKG Reviewed by me: Yes (Tele - SR) Phys Exam - Physical Examination lethargic, keeps eyes closed, moans occasionally Neck: no nodes, no JVD, supple, full ROM Respiratory: no wheezing, no rales, no rhonchi, clear to auscultation bilateral S1, S2 Cardiovascular: RRR, no significant murmur, no rub, gallop Gastrointestinal: soft, non-tender, no distention, positive bowel sounds Musculoskeletal: no edema, pulses present Neurological: moves all 4 limbs lethargic, moans occasionally Skin: normal turgor, cap refill <2 seconds Dx/Plan (1) Metastatic breast cancer Code(s): C50.919 - MALIGNANT NEOPLASM OF UNSP SITE OF UNSPECIFIED FEMALE BREAST Status: Acute Comment: Radiation and chemotherapy per Medical/Rad Oncology service (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 - SECONDARY MALIGNANT NEOPLASM OF OTH PARTS OF NERVOUS SYSTEM; C80.1 - MALIGNANT (PRIMARY) NEOPLASM, UNSPECIFIED Status: Acute Comment: S/ P LP with Methotrexate on 01/28/17 (3) Seizures Code(s): R56.9 - UNSPECIFIED CONVULSIONS Status: Acute Comment: Unstable on Keppra, increase Keppra 1500mg BID, start Dilantin 900mg load IV then 300mg po daily, increase Ativan 2mg IV q4h prn (4) Headache Code(s): R51 - HEADACHE Status: Acute Comment: Secondary to #2, pain control , continue Dexamethasone - Plan plan discussed w/ family, health social work professor, out of bed/ambulate, DVT proph w/SCDs Stable currently -: Start Dilantin 900mg IV load -: Dilantin 300mg po daily -: Increase Keppra 1500mg IV BID -: XRT per Rad oncology * .
[2018-01-19] MEDS ORDERED: levETIRAcetam In NaCl (Iso-Os) 1,500 MG in Premix Bag 1 BAG IVPB SCH (01:00)
[2018-01-19] MEDS: levETIRAcetam In NaCl (Iso-Os) 1,500 MG in Premix Bag 1 BAG IVPB SCH ×2 (01:36→12:38)
[2018-01-19] MEDS: Sodium Chloride 0.9% 1,000 ML IV SCH ×3 (04:29→22:07)
[2018-01-19] MEDS: Dexamethasone 4 mg/ml Vial SLOW IVP SCH ×2 (08:23→22:03)
[2018-01-19] MEDS: Aspirin 81 mg Enteric Coated Tablet PO SCH (08:23)
[2018-01-19] MEDS: hydrALAZINE 20 MG/ML VIAL SLOW IVP PRN (08:45)
--- NOTE | 2018-01-19 08:52 | PDOC.PN ---
- Subjective Encounter Start Date: 01/19/18 Encounter Start Time: 08:35 Subjective: f/u for metastatic breast carcinoma with leptomeningeal carcinomatosis -: and recurrent seizures. No overnight seizures reported per nursing. -: More alert per nursing. Feels sleepy this am but overall better. - Objective Resuscitation Status: Resuscitation Status FULL:Full Resuscitation MAR Reviewed: Yes Vital Signs & Weight: Vital Signs (12 hours) Temp Pulse Resp BP Pulse Ox 01/19/18 07:46 98.3 F 67 16 182/103 H 97 01/19/18 04:00 96.2 F L 84 18 135/103 H 96 01/19/18 00:00 97.3 F L 62 19 167/97 H 96 Weight Admit Weight 195 lb 4 oz Weight 195 lb 4 oz I&O: 01/18/18 01/19/18 01/20/18 06:59 06:59 06:59 Intake Total 1750 Output Total 500 400 Balance -500 1350 Result Diagrams: 01/16/18 17:46 01/16/18 17:46 Additional Labs: Accuchecks 01/18/18 11:14 POC Glucose 113 H EKG Reviewed by me: Yes (Tele - SR) Phys Exam - Physical Examination Constitutional: NAD alert, responsive to questions HEENT: PERRLA, sclera anicteric, oral pharynx no lesions Neck: no nodes, no JVD, supple, full ROM Respiratory: no wheezing, no rales, no rhonchi, clear to auscultation bilateral S1, S2 Cardiovascular: RRR, no significant murmur, no rub, gallop Gastrointestinal: soft, non-tender, no distention, positive bowel sounds Musculoskeletal: pulses present, edema present Neurological: normal sensation, moves all 4 limbs A x O x 2 Skin: normal turgor, cap refill <2 seconds Dx/Plan (1) Metastatic breast cancer Code(s): C50.919 - MALIGNANT NEOPLASM OF UNSP SITE OF UNSPECIFIED FEMALE BREAST Status: Acute Comment: Radiation and chemotherapy per Medical/Rad Oncology service, resume therapy today (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 - SECONDARY MALIGNANT NEOPLASM OF OTH PARTS OF NERVOUS SYSTEM; C80.1 - MALIGNANT (PRIMARY) NEOPLASM, UNSPECIFIED Status: Acute Comment: Intrathecal Methotrexate (3) Seizures Code(s): R56.9 - UNSPECIFIED CONVULSIONS Status: Acute Comment: Unstable on Keppra, increase Keppra 1500mg BID, start Dilantin 900mg load IV then 300mg po daily, increase Ativan 2mg IV q4h prn, improved with current regimen, monitor closely (4) Headache Code(s): R51 - HEADACHE Status: Acute Comment: Secondary to #2, pain control , continue Dexamethasone - Plan plan discussed w/ family, PT/OT, workforce services representative, out of bed/ambulate, DVT proph w/SCDs Stable currently -: Continue Dilantin 300mg po daily -: Continue Keppra 1500mg BID -: Increase Hydralazine 20mg IV q4h prn SBP > 170 -: Resume XRT * Continue Decadron 4mg IV BID
[2018-01-19] MEDS: HYDROcodone/Acetaminophen 10/325 mg Tablet PO PRN (22:06)
[2018-01-20] MEDS: levETIRAcetam In NaCl (Iso-Os) 1,500 MG in Premix Bag 1 BAG IVPB SCH ×2 (01:17→12:25)
[2018-01-20] MEDS: hydrALAZINE 20 MG/ML VIAL SLOW IVP PRN ×2 (03:57→15:36)
[2018-01-20] MEDS: Aspirin 81 mg Enteric Coated Tablet PO SCH (09:03)
[2018-01-20] MEDS: Dexamethasone 4 mg/ml Vial SLOW IVP SCH ×2 (09:03→21:55)
[2018-01-20] MEDS: Sodium Chloride 0.9% 1,000 ML IV SCH (12:31)
--- NOTE | 2018-01-20 13:57 | PDOC.PN ---
- Subjective Encounter Start Date: 01/20/18 Encounter Start Time: 13:50 Subjective: f/u for metastatic breast carcinoma with leptomeningeal carcinomatosis -: with current XRT. Short seizure this am per nursing. Continues tx with -: Dilantin/Keppra. - Objective Resuscitation Status: Resuscitation Status FULL:Full Resuscitation MAR Reviewed: Yes Vital Signs & Weight: Vital Signs (12 hours) Temp Pulse Resp BP BP Pulse Ox 01/20/18 12:00 97.7 F 66 20 159/95 H 98 01/20/18 08:00 98.6 F 96 16 172/100 H 96 01/20/18 04:30 94 143/74 H 01/20/18 04:00 98.5 F 83 19 179/81 H 93 L 01/20/18 03:57 65 179/81 H 01/20/18 02:00 185/124 H Weight Admit Weight 195 lb 4 oz Weight 195 lb 4 oz I&O: 01/19/18 01/20/18 01/21/18 06:59 06:59 06:59 Intake Total 1750 Output Total 400 Balance 1350 Result Diagrams: 01/16/18 17:46 01/16/18 17:46 EKG Reviewed by me: Yes (Tele - SR) Phys Exam - Physical Examination Constitutional: NAD HEENT: PERRLA, sclera anicteric, oral pharynx no lesions Neck: no nodes, no JVD, supple, full ROM Respiratory: no wheezing, no rales, no rhonchi, clear to auscultation bilateral S1, S2 Cardiovascular: RRR, no significant murmur, no rub, gallop Gastrointestinal: soft, non-tender, no distention, positive bowel sounds Musculoskeletal: no edema, pulses present Neurological: normal sensation, moves all 4 limbs Psychiatric: A&O x 3 Skin: normal turgor, cap refill <2 seconds Dx/Plan (1) Metastatic breast cancer Code(s): C50.919 - MALIGNANT NEOPLASM OF UNSP SITE OF UNSPECIFIED FEMALE BREAST Status: Acute Comment: Radiation and chemotherapy per Medical/Rad Oncology service, resume therapy today (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
[2018-01-20] MEDS ORDERED: Amlodipine 5 MG TAB PO SCH (14:15)
[2018-01-21] MEDS: Sodium Chloride 0.9% 1,000 ML IV SCH ×2 (00:57→16:02)
[2018-01-21] MEDS: levETIRAcetam In NaCl (Iso-Os) 1,500 MG in Premix Bag 1 BAG IVPB SCH ×2 (00:58→14:14)
[2018-01-21] MEDS: HYDROcodone/Acetaminophen 10/325 mg Tablet PO PRN (06:30)
[2018-01-21] MEDS: Aspirin 81 mg Enteric Coated Tablet PO SCH (08:56)
[2018-01-21] MEDS: Dexamethasone 4 mg/ml Vial SLOW IVP SCH (08:56)
[2018-01-21] MEDS ORDERED: Amlodipine 5 MG TAB PO SCH (09:00)
[2018-01-21] MEDS: hydrALAZINE 20 MG/ML VIAL SLOW IVP PRN (09:01)
--- NOTE | 2018-01-21 12:33 | DIS ---
DATE OF ADMISSION: 01/11/2018 DATE OF DISCHARGE: 01/21/2018 DISCHARGE DIAGNOSES: 1. Metastatic breast cancer. 2. Carcinomatous meningitis. 3. Seizures secondarily to #2. 4. Hypertension. 5. Headache secondary to #1. CONSULTATIONS: Dr. Shields with Radiation Oncology Service. Dr. Perez with Medical Oncology Servic e. Dr. Loja with Neurology Service. PERTINENT LABORATORY AND X-RAY FINDINGS: AST ranged between 35-99, ALT ranged between 15-77. Prolac tin level 8.01 on 01/12/2018. CBC within normal limits. CT of the brain dated 01/07/2018 showed dif fuse nonspecific white matter hypodensity changes in the centrum semiovale and subcortical regions bi laterally. CT of the cervical spine dated 01/03/2018 showed C5 on C6 and C6 on C7 spondylosis. CT o f the chest, abdomen, and pelvis dated 01/14/2018 showed no overt evidence to suggest metastatic dise ase within the chest, abdomen or pelvis. MRI of the brain dated 01/13/2018 showed subtle pachymening eal and leptomeningeal enhancement and a basilar distribution. Diffuse white matter signal abnormali ty throughout each cerebral hemisphere. Findings consistent with dural spread of metastatic disease. Bone scan dated 01/15/2018 showed no evidence for metastatic process. HOSPITAL COURSE: The patient was initially admitted after presenting with increased headache and lef t arm numbness. The patient underwent extensive evaluation including MRI and CT imaging of the brain showing evidence of leptomeningeal metastatic process consistent with patient's diagnosis of metasta tic breast cancer. The patient exhibited multiple seizure activities during the hospital course requ iring IV and oral anti-seizure regimens. The patient was placed on Keppra initially titrating to max imal dosing with breakthrough seizures consistently occurring. The patient was placed on Dilantin wi th overall improvement in seizure, frequency and activity by the time of discharge. The patient cont inued to receive radiation therapy after discussion and consultation with Radiation Oncology. The donna mosley also continued on IV dexamethasone for the entirety of her hospital course. The patient did cl inically stabilize in relation to seizure activity as stated previously and was able to tolerate regu lar oral intake. The patient needing some assistance with ambulation; however, voided appropriately. Overall, prognosis remains guarded, given patient's metastatic breast cancer. Current recommendations are also to continue intrathecal methotrexate on an ongoing basis after disch arge. I have examined the patient at the time of discharge and discussed followup instructions. The patient overall clinically stabilized and ready for discharge on 01/21/2018. DISCHARGE MEDICATIONS: 1. Norvasc 10 mg 1 tab p.o. daily. 2. Enteric coated aspirin 81 mg p.o. daily. 3. Dexamethasone 4 mg p.o. b.i.d. 4. [place] 10/325 mg 1 tab p.o. q.6 hours p.r.n. pain, #30. 5. Motrin 600 mg p.o. q.6 hours p.r.n. 6. Keppra 1500 mg p.o. b.i.d. 7. Dilantin suspension 300 mg p.o. daily. FOLLOWUP: Patient will follow up with Dr. Perez with Medical Oncology Service. The patient will follow up with Dr. Severiano Shields with Radiation Oncology. The patient will follow up with [facility] in [place], [place]. CONDITION ON DISCHARGE: Guarded. ACTIVITY: Ad shelli. No driving. DIET: Regular. CODE STATUS: FULL. DISPOSITION: Home, 01/21/2018. Total time preparing and coordinating discharge is 37 minutes.
[2018-01-21 12:37] VITALS: BP 172/97; TEMP 98.2
== END 2018-01-21 17:08 | disposition home or self-care (01) | DRG 100 ==
LOC: ERS 14:59 → OBSVTOIN 17:55 → 2SW 17:55 → ERS 18:52 → 2SE 01-12 10:20
PROVIDERS: ADMIT Internal Medicine; ATTEND Internal Medicine
DX: G40.89 Other seizures (principal); G03.8 Meningitis due to other specified causes; C79.81 Secondary malignant neoplasm of breast; S12.100D Unspecified displaced fracture of second cervical vertebra, subsequent encounter for fracture with routine healing; V49.9XXD Car occupant (driver) (passenger) injured in unspecified traffic accident, subsequent encounter; Z17.0 Estrogen receptor positive status [ER+]; I10 Essential (primary) hypertension; R51 Headache; C80.1 Malignant (primary) neoplasm, unspecified; E86.0 Dehydration; Z91.19 Patient's noncompliance with other medical treatment and regimen; I44.1 Atrioventricular block, second degree; Z87.891 Personal history of nicotine dependence
CPT/HCPCS: 36415; 36416; 70553; 71260; 74177; 77014; 77280; 77290; 77334; 77412; 77417; 78306; 80048; 80053; 82550; 84146; 85025; 85610; 85652; 85730; 86140; 93005; 93010; 94760; 95816; 95819; 96365; 96375; A9503; G8978-GP-CL; G8979-GP-CJ; G8987-GO-CM; G8988-GO-CK; J0360; J1100; J1650; J1885; J1953; J2060; J2405; J2765; J7050; J8540; J9202; Q0162; Q2009